=== PATIENT | male | born 1960 | race Hispanic/Latino ===

== ENCOUNTER 2017-09-19 22:53 | Inpatient (IN) | payer OTHER, SELFPAY ==
[2017-09-19] MEDS ORDERED: Lorazepam 2 MG/ML VIAL ONE ×2 (23:02→23:04)
[2017-09-19 23:13] LABS: #Basophils 0.1 thou/uL (0.0-0.2); #Neutrophils 15.7 thou/uL (1.40-6.50); %Basophils 0.3 % (0.0-1.0); %Eosinophils 0.2 % (0.0-10.0); %Lymphocytes 5.3 % (21.0-51.0); %Monocytes 10.5 % (0.0-10.0); %Neutrophils 83.7 % (42.0-75.0); Hemoglobin 14.9 g/dL (14.0-18.0); Mean Corpuscular HGB CONC 33.8 g/dL (32.0-36.0); Mean Corpuscular Hemoglobin 31.9 pg (27.0-31.0); Mean Corpuscular Volume 94.1 fl (80.0-94.0); Mean Platelet Volume 7.1 fL (7.4-10.4); Platelet Count 207 thou/uL (130-400); RBC Distribution Width 12.9 % (11.5-14.5); Red Blood Cell (RBC) Count 4.69 mill/uL (4.70-6.10); White Blood Cell (WBC) Count 18.8 thou/uL (4.8-10.8)
[2017-09-19 23:20] LABS: Bilirubin Negative (Negative); Blood, Urine Moderate (Negative); Clarity CLOUDY (Clear); Glucose, Urine (Dipstick) 100 mg/dL (Negative); Leukocyte Negative (Negative); Nitrite Negative (Negative); Protein, Urine (Dipstick) 100 mg/dL (Neg-Trace); Specific Gravity, Urine 1.007 (1.002-1.036)
[2017-09-19 23:22] LABS: Bacteria/HPF None Seen HPF (None Seen); Pathc Cast-AUWi Flag 2.18 (0-2.49); RBC/HPF 0-3 HPF (0-3)
[2017-09-19 23:28] LABS: ALT (SGPT) 87 U/L (8-55); AST (SGOT) 170 U/L (5-34); Acetaminophen Less than 6.0 mcg/mL (10.0-30.0); Albumin 4.1 g/dL (3.5-5.0); Alcohol Less than 10 mg/dL (Less than 10); Alkaline Phosphatase 128 U/L (40-150); Anion Gap 15 mmol/L (10-20); BUN (Urea Nitrogen) 10 mg/dL (8.4-25.7); CK (CPK) 616 U/L (30-200); Calc. Creatinine Clearance 0 mL/min (70-130); Calcium 9.3 mg/dL (7.8-10.44); Carbon Dioxide 25 mmol/L (22-29); Chloride 91 mmol/L (98-107); Estimated GFR-MDRD 52; Globulin 4.6 g/dL (2.4-3.5); Glucose 145 mg/dL (70-105); Potassium 3.2 mmol/L (3.5-5.1); Protein, Total 8.7 g/dL (6.0-8.3); Salicylate Less than 8.0 mg/dL (15.0-30.0); Sodium 128 mmol/L (136-145)
--- NOTE | 2017-09-19 23:28 | RAD ---
CHEST ONE VIEW: HISTORY: Unresponsive patient. COMPARISON: None. FINDINGS: Portable semiupright chest radiograph demonstrates a normal cardiac silhouette. The pulmonary vessel s and hilum are normal. The costophrenic angles are clear. No consolidation or mass. No pneumothor ax or osseous abnormality. Remote changes to the distal left clavicle. IMPRESSION: No acute cardiopulmonary process. POS: [facility]
[2017-09-19 23:31] LABS: CKMB 4.2 ng/mL (0-6.6); Troponin I 0.127 ng/mL (< 0.028)
[2017-09-19 23:36] LABS: Amphetamine Not Detected (NotDetected); Barbiturates Screen Not Detected (NotDetected); Benzodiazepine Screen Not Detected (NotDetected); Cocaine Metabolite Screen Not Detected (NotDetected); Medtox Control Line Valid? VALID (VALID); Medtox Reader # READER 1; Methadone Not Detected (NotDetected); Methamphetamine Not Detected (NotDetected); Opiate Screen Not Detected (NotDetected); Oxycodone Screen Not Detected (NotDetected); Phencyclidine (PCP) Not Detected (NotDetected); Renal Epithelial None Seen HPF (0-3); THC/Cannabinoid Screen Not Detected (NotDetected); Transitional Epithelial NONE SEEN HPF (0-3); Trichomonas/HPF None Seen HPF (None Seen); Tricyclic Screen Not Detected (NotDetected)
--- NOTE | 2017-09-19 23:56 | CT ---
CT CERVICAL SPINE NONCONTRAST: HISTORY: A 56-year-old male. Fall with altered mental status. FINDINGS: Motion artifact is present, limiting detail. There is no obvious craniocervical distraction, marlon radha fracture, or obvious acute malalignment. There is abnormal multifocal lucency involving the C3 and C4 vertebrae, most notable involving the left posterior elements. A lytic process is not exclude d. There is surrounding sclerosis seen. Incidental note of subarachnoid hemorrhage at the imaged po sterior fossa. Grade I spondylolisthesis is seen at C3-4. Incidental note of biapical emphysema. IMPRESSION: 1. No obvious acute fracture. 2. Abnormal multifocal lytic lucencies, as discussed above. There is surrounding sclerosis. The po ssibility of a marrow infiltrative/neoplastic process is not excluded. Findings are most notable at the C3 and C4 segments, centered about the left facet. An infectious process is an additional possib ility. Incidental note of a subarachnoid hemorrhage at the skull base. Reference separate head CT. POS: [facility]
--- NOTE | 2017-09-19 23:59 | CT ---
NONCONTRAST HEAD CT: HISTORY: Altered mental status. Fall. Unresponsive patient. COMPARISON: None. TECHNIQUE: A noncontrast head CT is performed from the skull base to the skull vertex. FINDINGS: There is marked dilatation of the ventricular system. There is marked intraventricular hemorrhage. There is evidence of subarachnoid hemorrhage involving both frontal lobe and parietal lobe sulci. Th ere is preservation of the calvarium. There is left maxillary sinus disease. Inadequate mastoid air cell aeration. IMPRESSION: Extensive intraventricular as well as subarachnoid hemorrhage. There is evidence of hydrocephalus se condary to intraventricular hemorrhage. The results of the study were discussed with Dr. Michelle on 09/19/2017 at 11:34 p.m. CODE CR POS: [facility]
[2017-09-20] MEDS ORDERED: niCARdipine 20MG In NaCl 20 MG/200 ML BAG ONE (00:09)
[2017-09-20] MEDS ORDERED: SODIUM CHLORIDE 0.9% IVPB SCH (00:15)
[2017-09-20] MEDS ORDERED: Lidocaine 1% w/Epinephrine 1:100K 20 ML VIAL ONE (00:15)
[2017-09-20] MEDS ORDERED: FOSPHENYTOIN SODIUM IVPB SCH (00:15)
[2017-09-20] MEDS ORDERED: Lorazepam 2 MG/ML VIAL ONE (00:18)
[2017-09-20 01:12] LABS: Actual Bicarbonate (HCO3a) 25.2 mEq/L (22-26); Base Excess (BEa) -1.2 mEq/L (0 (+/-) 2.5); CO2 Tension 48.5 mmHg (35.0-45.0); Hematocrit-ABG 46.7 % (42.0-52.0); Hemoglobin (Hb) 13.7 g/dL (14.0-18.0); O2 Tension (PaO2) 436.1 mmHg (80.0-100.0); pH, Arterial 7.33 (7.35-7.45)
[2017-09-20 01:13] LABS: ALV-art Gradient 216.275 (0-20); Analyzer IN Cardio ER; Calcium, Ionized 1.1 mmol/L (1.12-1.30); Puncture Site RRA
[2017-09-20] MEDS ORDERED: DOPamine 400 MG/D5W 250 ML 250 ML ONE (01:15)
[2017-09-20] MEDS ORDERED: Ondansetron HCl/PF 4 MG/2 ML Vial IVP PRN (01:39)
[2017-09-20] MEDS ORDERED: Sedation Protocol FS ONE ×3 (01:39→16:53)
[2017-09-20] MEDS ORDERED: Bisacodyl 10 MG SUPP PR PRN (01:39)
[2017-09-20] MEDS ORDERED: Morphine 2 MG/ML SYRINGE SLOW IVP PRN (01:54)
[2017-09-20] MEDS ORDERED: Lorazepam 2 MG/ML VIAL SLOW IVP PRN (01:54)
[2017-09-20] MEDS ORDERED: Fentanyl BOLUS 250 ML IVPB PRN (01:54)
[2017-09-20] MEDS ORDERED: Fentanyl CADD 250 ML IVPB SCH (01:54)
[2017-09-20] MEDS ORDERED: DISCONTINUE PREVIOUS NARCOTIC PAIN MEDICATIONS AND BENZODIAZEPINES FS SCH (01:54)
[2017-09-20] MEDS ORDERED: Morphine 4 MG/ML VIAL SLOW IVP PRN (02:00)
[2017-09-20] MEDS ORDERED: fentaNYL Citrate/PF 2,000 MCG in Sodium Chloride 0.9% 60 ML IV SCH (02:00)
[2017-09-20] MEDS ORDERED: CEFAZOLIN/Water 2 G/20 ML 2 GM in Pre-Filled Syringe 1 EACH SLOW IVP SCH (03:00)
[2017-09-20 03:05] LABS: Lactic Acid 2.2 mmol/L (0.5-2.2)
[2017-09-20 03:11] LABS: Anion Gap 11 mmol/L (10-20); BUN (Urea Nitrogen) 13 mg/dL (8.4-25.7); Calc. Creatinine Clearance 0 mL/min (70-130); Calcium 8.5 mg/dL (7.8-10.44); Carbon Dioxide 28 mmol/L (22-29); Chloride 90 mmol/L (98-107); Estimated GFR-MDRD 53; Glucose 164 mg/dL (70-105); Potassium 3.4 mmol/L (3.5-5.1); Sodium 126 mmol/L (136-145)
[2017-09-20 03:14] LABS: Hemoglobin 13.9 g/dL (14.0-18.0); Mean Corpuscular HGB CONC 33.8 g/dL (32.0-36.0); Mean Corpuscular Hemoglobin 31.9 pg (27.0-31.0); Mean Corpuscular Volume 94.4 fl (80.0-94.0); Platelet Count 179 thou/uL (130-400); RBC Distribution Width 12.9 % (11.5-14.5); Red Blood Cell (RBC) Count 4.38 mill/uL (4.70-6.10); White Blood Cell (WBC) Count 23.7 thou/uL (4.8-10.8)
[2017-09-20] MEDS: Sodium Chloride 0.9% 1,000 ML IV SCH ×3 (03:24→17:30)
[2017-09-20 03:38] LABS: Band 11 % (5-11); Eosinophils 1 % (0-10); Lymphocytes 7 % (21-51); MDiff Complete? YES; Macrocytosis SLIGHT = 6-15 cells (100X) (0-5/hpf); Monocytes 10 % (0-10); Neutrophil 71 % (42-75); PLT Morphology Comment Appears Adequate
[2017-09-20] MEDS: niMODipine 30 MG CAP PO SCH ×5 (04:48→20:36)
--- NOTE | 2017-09-20 07:09 | CT ---
CTA [facility] [place]: CLINICAL HISTORY: Acute intracranial hemorrhage. TECHNIQUE: Three-dimensional volume rendering performed. FINDINGS: The imaged distal vertebrae and basilar arteries are patent. There is no significant stenosis or occ lusion involving either PHYSICIAN VICE PRESIDENT. Bilateral MCA revealed no significant stenosis or occlusion. Anterior cerebral arteries are patent. There is focal prominence/irregularity of the right lateral aspect of the anterior communicating artery. This could relate to aneurysm. Note is made that there is limite d evaluation for aneurysm due to the degree of intracranial hemorrhage. Comparing to prior CT, there has been placement of a right-sided frontal approach ventriculostomy, wi th the tip terminating at the frontal horn, right lateral ventricle. Diffuse intracranial hemorrhage is again seen, predominantly within the ventricular system. IMPRESSION: Slight irregularity involving the right lateral aspect of the region of the anterior communicating ar lennox. This could relate to underlying aneurysm. Limitation is present due to the degree of intracra nial acute hemorrhage. Recommend continued imaging followup, upon resolution of acute symptoms, for further evaluation. POS: [facility]
[2017-09-20] MEDS ORDERED: CCU Electrolyte Replacement 1 EACH FS ONE (07:11)
[2017-09-20] MEDS ORDERED: Potassium Phosphate 15 MMOL in Sodium Chloride 0.9% 250 ML 250 ML IV PRN (07:14)
[2017-09-20] MEDS ORDERED: Potassium Chloride 20 MEQ TAB PO PRN (07:14)
[2017-09-20] MEDS ORDERED: Magnesium Oxide 400 MG TAB PO PRN ×2 (07:14)
[2017-09-20] MEDS ORDERED: Potassium Chloride 40 MEQ in Sodium Chloride 0.9% 250 ML 250 ML IVPB PRN (07:14)
[2017-09-20] MEDS ORDERED: Potassium Phosphate 12 MMOL in Sodium Chloride 0.9% 250 ML 250 ML IV PRN (07:14)
[2017-09-20] MEDS ORDERED: Potassium Chloride 40 MEQ in Premix Bag 1 BAG IVPB PRN (07:14)
[2017-09-20] MEDS ORDERED: Potassium Phosphate 9 MMOL in Sodium Chloride 0.9% 100 ML IVPB PRN (07:14)
[2017-09-20] MEDS ORDERED: Magnesium 2 GM/NS 0.9% 100 ML 2 GM in Premix Bag 1 BAG IVPB PRN (07:14)
[2017-09-20 08:01] LABS: Hematocrit-ABG 48.7 % (42.0-52.0); O2 Tension (PaO2) 68.6 mmHg (80.0-100.0); pH, Arterial 7.44 (7.35-7.45)
[2017-09-20 08:02] LABS: Puncture Site RR
[2017-09-20] MEDS ORDERED: ISOVUE-370 76%-LOCM 1 ML ONE (08:02)
--- NOTE | 2017-09-20 08:06 | RAD ---
CHEST 1 VIEW: HISTORY: Intubated. COMPARISON: 09/19/17. FINDINGS: Cardiac silhouette is magnified by projection. Lungs remain hyperinflated. Mediastinum is midline. The tip of the endotracheal catheter lies just above the level of the jarrett. Nasogastric tube desc ends to the stomach. No lobar consolidation. Old right rib fractures are apparent. IMPRESSION: 1. Endotracheal catheter tip is just above the level of the jarrett. Consider slight withdrawal. 2. Nasogastric tube descends to the stomach. 3. Other findings are stable. POS: [facility]
--- NOTE | 2017-09-20 08:21 | PRG ---
DATE OF SERVICE: 09/20/2017 Mr. Martinez was admitted last night for diffuse subarachnoid hemorrhage and diffuse intraventricular he morrhage. EVD was placed last night and has drained around 19 mL, it continues to put off around 3-6 mL an hour. His urinary output initially upon admission to the CCU was around 4-5 per hour, but has now leveled off. He is still getting normal saline at 125 an hour, Ancef 2 grams was started this m orning after placement of the drain. He will be receiving every 8 hours while the drain is in place. At bedside, unfortunately, although not unexpectedly his neurologic examination is still rather poo r. He spontaneously moves and is experiencing small tics which could represent minor seizure activit y. He is loaded on Dilantin and we will continue this as well. He at times looks like he attempts t o open his eyes with stimulation, but does not open them at any given time. His pupils are still equ ally round and reactive to light. Pressures have sagged some again. He was started on some IV dopam ine p.r.n. to keep his pressures above 100 systolic, but now that was turned off and he has dropped b ack down into the 80s and 90s so we will reinitiate that. I discussed with the nurse that target sys tolic pressures need to be between [address] was performed last night, does not reveal any obv ious aneurysmal or arteriovenous malformation other than a possible irregularity at the anterior comm unicating artery, though incomplete evaluation due to the significant amount of hemorrhage present di ffusely throughout his brain. Our plan for now will be to continue to treat him as aneurysmal subarachnoid hemorrhage with intraven tricular hemorrhage, drain setting is at 5 cm of water. Will have q.1h. neuro checks. I will discu ss this with Dr. Moser.
--- NOTE | 2017-09-20 09:20 | HP ---
HISTORY OF PRESENT ILLNESS: Mr. Martinez is a 56-year-old man who presented to the emergency department at [facility] by EMS after being found down by his family in the bathroom, was found unresp onsive with seizure activity present. This is in the setting of a CT scan of the brain performed in the department showing complete hyperdensity of the full ventricular system representing massive intr aventricular hemorrhage, there is also scattered subarachnoid hemorrhage throughout the full distribu tion of the bilateral hemispheres. This is very likely represents some type of vascular event, likel y in the form of an aneurysm or perhaps an AVM, we will obtain a CTA to determine the etiology. Deepika kimbrough does not disclose any significant medical factors. He only has COPD with history, does not take a ny blood thinners. He was hypertensive in the emergency department, the systolic reaching 196 at its peak. He was in rapid sequence intubated at bedside. PAST MEDICAL HISTORY: Significant for COPD. CURRENT MEDICATIONS: Unassessed. ALLERGIES: No known drug allergies. PAST SURGICAL HISTORY: Unassessed. PHYSICAL EXAMINATION: The patient is comatose at bedside with minimal response to deep painful stimuli of mostly withdrawal s. He does not open his eyes to any stimulus. Pupils are equally round and reactive to light, alth ough his gaze is somewhat disconjugate. When spoken to and with deep stimuli, he does groan and make an unintelligible noises. I am afraid his GCS of 6 perhaps of 5 at this point. His head is atrauma tic, normocephalic. ASSESSMENT: Acute subarachnoid hemorrhage with mass and intraventricular hemorrhage. PLAN: Because of intraventricular hemorrhage and because it does look like he is developing engorgem ent of the entire ventricular system, most likely represents acute obstructive hydrocephalus secondar y to of his ventricles. He very likely has increased intracranial pressure and will need urgen t placement of external ventricular drainage, which I performed at the bedside here at the emergency department. After this, we will need to obtain a CTA, admit him to the ICU and a consultation to the Pulmonary or Critical Care Team. Put on a every one hour neuro checks and one hour normal saline at 125 also initiate progressive hypertensive therapy as soon as we get a CTA performed. t hat there is not a vascular source of this hemorrhage. We will need to maintain a systolic pressure below 140. Start him on a Cardene drip for this purpose specifically. Head of bed will be elevated to 30 degrees. As he did have seizure activity, we will also load him Dilantin at 15 mg/kg and at 30 0 mg b.i.d. lately. I had a long discussion with all family members present at the bedside and then in the crisis room post-procedure where I informed them this is likely devastating hemorrhage, but be cause he had seizure activity, it could very well be postictal and because of the hydrocephalus causi ng increased intracranial pressure, will know a lot more about his condition in the next 24-48 hours. Plan will be to pursue a full depth of neurosurgical care which I believe will and encourage d him to ask any questions or express concerns at any time. Harley Singletary PA-C, dictating for Dr. Moser.
[2017-09-20 09:22] LABS: Base Excess-Venous -2.1 mmol/L (0 (+/- 2.5)); Bicarbonate (HCO3v) 25.1 mmol/L (1.0-85.0); CO2 Tension (PvCO2) 51.3 mmHg (41.0-51.0); Hemoglobin - Calc 15.4 g/dL (12.0-18.0); O2 Tension (PvO2) 130.8 mmHg (35.0-45.0); Potassium 2.9 mmol/L (3.4-4.7); T. Carbon Dioxide 26.7 mmol/L (1.0-85.0); pH (Venous) 7.298 (7.35-7.45); vO2 Saturation-calc 98.6 % (94-98)
[2017-09-20] MEDS ORDERED: STERILE WATER SLOW IVP SCH (10:00)
[2017-09-20] MEDS ORDERED: CEFAZOLIN SLOW IVP SCH (10:00)
[2017-09-20] MEDS: Pantoprazole 40 MG VIAL IVP SCH (10:46)
--- NOTE | 2017-09-20 10:57 | CT ---
NONCONTRAST HEAD CT: HISTORY: Intraventricular and subarachnoid hemorrhage. COMPARISON: 09/19/2017 FINDINGS: Redemonstration of extensive intraventricular and subarachnoid hemorrhage. The ventricular system co ntinues to be enlarged. Interval placement of a right-sided ventriculoperitoneal shunt catheter via the right frontal approach. the distal tip of the catheter is in the frontal horn of the right later al ventricle. Cortical montero white matter differentiation appears to be preserved. Chronic small vessel ischemic ch anges of the white matter are identified. The calvarium is intact. Adequate aeration of the sinuses and mastoid air cells. IMPRESSION: 1. Interval placement of a right-sided ventriculoperitoneal shunt catheter. Persistent dilatation o f the ventricular system. 2. Evidence of intraventricular and subarachnoid hemorrhage. The degree of subarachnoid hemorrhage has progressed when compared to the prior exam. POS: [facility]
[2017-09-20] MEDS: CEFAZOLIN/Water 2 GM/20 ML SYRINGE SLOW IVP SCH ×2 (11:07→17:30)
--- NOTE | 2017-09-20 12:35 | CON ---
DATE OF CONSULTATION: 09/20/2017 This is 45 minutes critical care time. REASON FOR CONSULTATION: Ventilator in CCU management. HISTORY OF PRESENT ILLNESS: This is a 56-year-old male who came to the ER last night with altered me ntal status and has been found to have an intracranial hemorrhage. Apparently there is a diffuse sub arachnoid hemorrhage with intraventricular hemorrhage. He is currently intubated on mechanical venti lation until he is intubated secondary to airway protection issues. PAST MEDICAL HISTORY: COPD is noted in the ER notes, this is not confirmed. PAST SURGICAL HISTORY: None. PSYCHIATRIC HISTORY: Unknown. SOCIAL HISTORY: Apparently drinks every day, smokes cigarettes daily. Drug use unknown. ALLERGIES: None. MEDICATIONS PRIOR TO ADMISSION: None. REVIEW OF SYSTEMS: Unobtainable. PHYSICAL EXAMINATION: VITAL SIGNS: Temperature is 99.1, pulse 108, blood pressure 102/62, O2 sat 100%. GENERAL: Currentl y on dopamine drip at 10 mcg per kilogram per minute through a midline in the right arm. HEENT: Pupils are 4 mm reactive, 3 mm bilaterally. Sclerae icteric. Oropharynx clear. NECK: No JVD or bruits. LUNGS: Clear to auscultation without wheezing or rhonchi. CARDIAC: S1, S2 regular, without murmur. ABDOMEN: Soft, nontender, nondistended. EXTREMITIES: No clubbing, cyanosis, or edema. NEUROLOGIC: He will withdraw to pain in both feet and his right arm will not withdraw the left arm. LABORATORY DATA: White blood cell count 23.7, hematocrit 41.3, platelet count 179, pH 7.44, pCO2 of 38, pO2 of 68 on SIMV rate 15, tidal volume 400, PEEP 5, pressure support 10, FiO2 40%. Sodium 126, potassium 3.4, chloride 90, CO2 of 28, BUN 13, creatinine 1.3, glucose 164. Urine drug screen was ne gative. Alcohol level was negative. Chest x-ray demonstrates hyperinflation. Endotracheal tube is about 4 cm above the jarrett. His NG tube going into the stomach. No acute infiltrates are noted. C T of the head demonstrated extensive intraventricular as well as subarachnoid hemorrhage. There was evidence of hydrocephalus secondary to the hemorrhage. ASSESSMENT: 1. Subarachnoid hemorrhage with intraventricular extension. 2. Acute respiratory failure, requiring mechanical ventilation. 3. Hyponatremia, which is likely secondary to alcohol. PLAN: The patient is currently on normal saline which should address the hyponatremia. Dopamine is being used for treatment of potential vasospasm. He has been started on cefazolin for prophylaxis as he has an intraventricular drain in place. I have reviewed his ventilator settings, it seemed to be stable. We will monitor ABG and laboratory parameters daily. His prognosis is dismal.
[2017-09-20] MEDS: DOPamine 400 MG/D5W 250 ML 250 ML IVPB SCH (15:46)
--- NOTE | 2017-09-20 15:58 | PRG ---
DATE OF SERVICE: 09/20/2017 SUBJECTIVE: Mr. Martinez was admitted late yesterday evening with intracerebral hemorrhage with a vascu lar component of the blood within the ventricular space and to a lesser extent within the subarachnoi d space. He was noted to have seizure activity at the time of presentation. He is also obtunded req uiring intubation at the time of transport. Upon arrival, he had a CT examination performed, which r evealed the presence of ventricular blood as well as subarachnoid blood with associated hydrocephalus . He had a CT angiogram performed, which was negative for vascular malformation or aneurysm. He had a ventriculostomy device placement in the ER. This has been intermittently working in part due to b lood clot. Mr. Martinez has been on no sedation since his presentation to the ICU. He has a very poor neurologic e xam. Both pupils are reactive; however, he does not respond to deep stimulation. He does have occas ional spontaneous movement of the limbs. This will prompt further evaluation with respect to clinica l or subclinical seizures. I have tried to reach out to family members and have not been successful on reaching them; we will continue to do so. I believe his prognosis at this point is quite guarded and likely poor. We will continue to treat him with medical management and external ventricular drai nage. He will likely need a diagnostic cerebral angiography as well to rule out occult or small vasc ular malformation, which led to his hemorrhage.
[2017-09-20] MEDS: Fosphenytoin Sodium 100 MG in Sodium Chloride 0.9% 100 ML IVPB SCH (17:27)
[2017-09-20] MEDS: Propofol 1,000 MG/100 ML VIAL IV PRN (17:30)
--- NOTE | 2017-09-20 19:36 | CON ---
DATE OF CONSULTATION: 09/20/2017 IMPRESSION: 1. Massive subarachnoid hemorrhage resulting in left hemiparesis. 2. EEG shows some focal sharp activity in the right hemisphere, but then he does not demonstrate any clinical seizure activity consistent with events in this region. PLAN: 1. Continue Dilantin 300 mg per day. 2. Supportive measures. HISTORY OF PRESENT ILLNESS: Mr. Martinez is a 56-year-old man with no known past history, who presented with altered mental status. His CT of the brain revealed evidence of a massive intraventricular and subarachnoid hemorrhage. His CTA showed a questionable ACom aneurysm. He has been intubated in the ICU. He has been having some irregular movements in his right arm. He was loaded with Dilantin las t night. The nurses report some occasional twitching, which I do not have any specifics on at this p oint. We hooked him up to EEG and monitored his movements as well as his EEG activity. There does n ot appear to be any subclinical seizure activity present. He does have a short focus as mentioned in the right hemisphere. PAST MEDICAL HISTORY: Otherwise, negative. SOCIAL HISTORY: Unknown. ALLERGIES: None reported. REVIEW OF SYSTEMS: Not obtainable. PHYSICAL EXAMINATION: VITAL SIGNS: Blood pressure 122/73, pulse 104, respirations 27, saturation 99%. HEENT: Pupils are equal. Conjunctivae clear. Eyes move in a conjugate fashion. He does not open h is eyes spontaneously. NEUROLOGIC: He is orally intubated. When stimulated, he tends to make some irregular movements with his right hand more than his leg. The left side does not seem to respond at all. He had upgoing to e on the left. Sensation seemed to be intact bilaterally. He would not follow any commands. EKG: Sinus tachycardia. LABORATORY STUDIES: Reviewed and were notable for mild hyponatremia and elevated liver functions. H is tox screen was negative. SUMMARY: A middle-aged man with a massive intracerebral hemorrhage and would continue the Dilantin, on a maintenance schedule 300 mg per day and follow him clinically.
[2017-09-21] MEDS: niMODipine 30 MG CAP PO SCH ×6 (00:17→20:06)
[2017-09-21] MEDS: Fosphenytoin Sodium 100 MG in Sodium Chloride 0.9% 100 ML IVPB SCH ×3 (00:20→17:17)
[2017-09-21] MEDS: CEFAZOLIN/Water 2 GM/20 ML SYRINGE SLOW IVP SCH ×3 (02:18→19:48)
[2017-09-21] MEDS: Sodium Chloride 0.9% 1,000 ML IV SCH ×3 (04:22→20:08)
[2017-09-21] MEDS: Propofol 1,000 MG/100 ML VIAL IV PRN (04:23)
[2017-09-21] MEDS: DOPamine 400 MG/D5W 250 ML 250 ML IVPB SCH (04:23)
[2017-09-21 06:33] LABS: Band 20 % (5-11); Hemoglobin 13.5 g/dL (14.0-18.0); Lymphocytes 17 % (21-51); MDiff Complete? YES; Mean Corpuscular HGB CONC 32.4 g/dL (32.0-36.0); Mean Corpuscular Hemoglobin 31.4 pg (27.0-31.0); Mean Corpuscular Volume 96.9 fl (80.0-94.0); Mean Platelet Volume 8.3 fL (7.4-10.4); Monocytes 9 % (0-10); Neutrophil 54 % (42-75); PLT Morphology Comment PLT clumps seen-ADEQ; RBC Distribution Width 13.2 % (11.5-14.5); Red Blood Cell (RBC) Count 4.32 mill/uL (4.70-6.10); White Blood Cell (WBC) Count 29.4 thou/uL (4.8-10.8)
[2017-09-21 06:37] LABS: Anion Gap 17 mmol/L (10-20); BUN (Urea Nitrogen) 17 mg/dL (8.4-25.7); Calc. Creatinine Clearance 86 mL/min (70-130); Calcium 8.5 mg/dL (7.8-10.44); Carbon Dioxide 17 mmol/L (22-29); Chloride 100 mmol/L (98-107); Estimated GFR-MDRD 89; Glucose 122 mg/dL (70-105); Potassium 4.2 mmol/L (3.5-5.1); Sodium 130 mmol/L (136-145)
[2017-09-21 07:41] LABS: ALV-art Gradient 180.675 (0-20); Actual Bicarbonate (HCO3a) 22.2 mEq/L (22-26); Base Excess (BEa) -0.3 mEq/L (0 (+/-) 2.5); CO2 Tension 30.1 mmHg (35.0-45.0); Hematocrit-ABG 45.1 % (42.0-52.0); Hemoglobin (Hb) 13.6 g/dL (14.0-18.0); O2 Tension (PaO2) 66.9 mmHg (80.0-100.0); Puncture Site LRA; pH, Arterial 7.49 (7.35-7.45)
--- NOTE | 2017-09-21 07:51 | RAD ---
AP VIEW CHEST: Date: 09/21/17 HISTORY: Ventilator dependent patient. FINDINGS: Comparison made to previous exam from 09/20/17. AP view of chest demonstrates EKG leads seen over the chest. Pulmonary vascular congestion is seen. S ome prominent interstitial markings are seen in the lung bases. No evidence of pneumonia or pneumotho rax seen. A non-healed distal left clavicular fracture is seen. IMPRESSION: Pulmonary vascular congestion and prominent interstitial markings. Nasogastric and endotracheal tubes are in good position. POS: [facility]
--- NOTE | 2017-09-21 08:28 | OP ---
DATE OF PROCEDURE: 09/20/2017 PREPROCEDURE DIAGNOSES: Intraventricular hemorrhage, altered mental status, subarachnoid hemorrhage. POST-PROCEDURE DIAGNOSES: Intraventricular hemorrhage, altered mental status, subarachnoid hemorrhag e. DESCRIPTION OF PROCEDURE: Right external ventricular drain placement with a bur hole. PROCEDURE IN DETAIL: Gretel's point was localized in the right frontal scalp. This was marked. We prepped with ChloraPrep and infiltrated with 1% lidocaine with epinephrine with a total of 1 mL to th e subcutaneous scalp tissues. At this point, a 15 blade knife was used to incise the scalp down to t he periosteum making about a roughly 1 cm incision. A cranial twist drill was used to create a bur h ole at Gretel's point in the frontal bone. The dural wound was cleared using blunt dissection and th en an intraventricular catheter was placed at a depth of 6 cm with slow egress of sanguineous fluid f rom the catheter. This was hooked up to the Tovar drain. The incision was closed using a Ethilon s uture. The drain was adhered to the scalp using 2-0 Silk suture. The drain setting was set to 5 and initially 10 cm of water, but the drainage was deemed slow enough to where it was moved to 5 cm of w ater and better drainage was obtained. The patient tolerated the procedure well. We will initiate h im on IV antibiotics in the form of Ancef 2 grams q.8h. I met with the family post-procedure.
--- NOTE | 2017-09-21 08:35 | PRG ---
DATE OF SERVICE: 09/21/2017 Thirty minutes critical care time. The patient remains intubated on mechanical ventilation. He does move around some, open his eyes acc ording to the family. He is not following commands. PHYSICAL EXAMINATION: VITAL SIGNS: Temperature is 98.7, pulse 89, blood pressure 105/59, O2 saturation 100%, 24-hour inta ke 3166, output 2009. HEENT: Unremarkable. NECK: No JVD. CHEST: Clear without wheezing or rhonchi. CARDIAC: S1 and S2 regular. ABDOMEN: Soft. EXTREMITIES: No edema. Chest x-ray shows no mass, effusion or infiltrate. LABORATORY DATA: White blood cell count 29.4, hemoglobin 13, hematocrit 41.9, platelet count could n ot be performed because of clumping. PH 7.49, pCO2 of 30, pO2 66, tidal volume 400, PEEP 5, pressure support 10, FiO2 40%. Sodium 130, potassium 4.2, chloride 100, CO2 17, BUN 17, creatinine 0.8, gluc ose 122. ASSESSMENT: 1. Subarachnoid hemorrhage. 2. Acute respiratory failure requiring mechanical ventilation. 3. Hyponatremia, which is better. PLAN: The patient's prognosis is guarded. I spoke with his sister at the bedside. I do not think michael weathers can entertain taking out the endotracheal tube until his mental status has improved, if that is to happen. We will go ahead and start tube feeds today for nutritional support. His white count is baljit vated even on cefazolin. I think it would be prudent to redraw cultures, he grew coagulase negative Staph out of one of two bottles at the time of admission, but that is likely a contaminant and should be covered by cefazolin any way, it could be that the white count is simply due to the intraventric ular hemorrhage.
[2017-09-21] MEDS: Pantoprazole 40 MG VIAL IVP SCH (09:21)
--- NOTE | 2017-09-21 10:51 | PRG ---
DATE OF SERVICE: 09/21/2017 Mr. Martinez is now 1 day status post admission into the ICU for a large intraventricular hemorrhage. Dale weathers had a ventriculostomy placed on the night of admission. His neurologic exam has improved increment ally since that time. He is currently on sedation and even on sedation he makes movement spontaneous ly and with stimulation opens his eyes and has a tendency to grab toward the tube. I interrogated th e ventriculostomy device today and it was not flowing well. I flushed it and it is still not flowing as well as I would like. We will continue to monitor this and if need be, replace it. He had a neg ative CT angiogram. He may at some point need conventional angiogram. The family has been updated.
--- NOTE | 2017-09-21 15:30 | EEG ---
Referring Physician: Kenan CORCORAN EEG # [id number] TEST TYPE: ROUTINE PORTABLE REPORT: AN EEG USING THE INTERNATIONAL TEN-TWENTY SYSTEM OF ELECTRODE PLACEMENT WAS PERFORMED. The background shows a bit of asymmetry with higher amplitude slowing seen over the right hemisphere as compared to the left. Generally the frequency range is between 2 hertz delta up to some low amplitude 9 hertz alpha. There is fairly frequent phase reversing sharp transients in the right hemisphere. No sustained epileptiform activity was seen. No definite sleep patterns were noted. IMPRESSION: THIS STUDY IS ABNORMAL FOR SOME ASYMMETRIC SLOWING WITH BILATERAL CEREBRAL DYSFUNCTION WELL SHARP TRANSIENTS NOTED IN THE RIGHT HEMISPHERE SUGGESTING A SEIZURE FOCUS. NO SUBCLINICAL SEIZURE ACTIVITY WAS NOTED OTHERWISE. Otm Consultant: JACKIE Karate Instructor: EEG.KYLEE PRECIADO
[2017-09-22] MEDS: Fosphenytoin Sodium 100 MG in Sodium Chloride 0.9% 100 ML IVPB SCH ×3 (00:43→17:20)
[2017-09-22] MEDS: niMODipine 30 MG CAP PO SCH ×6 (00:43→20:33)
[2017-09-22] MEDS: CEFAZOLIN/Water 2 GM/20 ML SYRINGE SLOW IVP SCH ×3 (02:00→18:18)
[2017-09-22] MEDS ORDERED: Fentanyl 100 MCG/2 ML VIAL ONE ×3 (04:13→06:25)
[2017-09-22] MEDS: Sodium Chloride 0.9% 1,000 ML IV SCH ×3 (05:28→17:20)
[2017-09-22] MEDS ORDERED: Lidocaine 0.5%/Epinephrine 1:200,000 50 ml Vial ONE (05:43)
[2017-09-22] MEDS ORDERED: Sodium Chloride 0.9% 10 ML ONE (05:43)
[2017-09-22] MEDS ORDERED: Thrombin 5000 UNITS/5 ML VIAL ONE ×2 (05:43→07:05)
[2017-09-22] MEDS ORDERED: Bacitracin Zinc Ointment 30 gm TUBE ONE (05:46)
[2017-09-22] MEDS ORDERED: Midazolam HCl 2 mg/2 ml Vial ONE (05:47)
--- NOTE | 2017-09-22 06:41 | PRG ---
DATE OF SERVICE: 09/22/2017 Mr. Martinez is a 56-year-old man who presented 3 days ago with concern of aneurysmal subarachnoid hemor rhage. CT angiogram was negative. There was report of seizure at the scene and a poor neurological exam. He had thick casting of the ventricular system with obstructive hydrocephalus. A right fronta l EVD was placed in good position and was functioning. The patient's exam improved to intermittently follow commands and localize. Per the nursing team in the middle of the night his right frontal EVD began to obstruct and was not functioning. We performed troubleshooting maneuvers. These were ulti mately unsuccessful. A head CT was repeated and demonstrated persistence of thick ventricular clot w ith some opening of CSF in the left frontal horn. An EVD was placed from the left frontal position a nd worked intermittently and then it clotted off. As such, given the patient's age and the improveme nt following placement of ventriculostomy, I have recommended that we take him to the operating room for right frontal craniotomy for transcortical approach to try and evacuate as much of the ventricula r clot as we can and restore some semblance of normal CSF pathways. I will likely replace his right frontal EVD and leave his left one in place.
[2017-09-22] MEDS ORDERED: Thrombin 20 THOU.UNITS/20 ML VIAL ONE (07:04)
[2017-09-22] MEDS ORDERED: Rocuronium Bromide 50 MG/5 ML VIAL ONE (07:21)
--- NOTE | 2017-09-22 07:54 | RAD ---
AP VIEW CHEST: HISTORY: Ventilator-dependent patient. FINDINGS: AP view chest was obtained on 09/22/17. Comparison is made to previous exam from 09/21/17. AP view chest demonstrates EKG leads seen over the chest. Nasogastric and endotracheal tubes are in good position. There does appear to be some diffuse increased interstitial markings concerning for interstitial justina a or inflammatory process present. Some pulmonary vascular congestion is seen. No evidence of pneum othorax seen. IMPRESSION: 1. Prominent interstitial markings as well as pulmonary vascular congestion. 2. Endotracheal and nasogastric tubes are in good position. POS: [facility]
[2017-09-22] MEDS ORDERED: Fentanyl 100 MCG/2 ML VIAL SLOW IVP SCH ×2 (08:00)
[2017-09-22 08:02] LABS: Anion Gap 9 mmol/L (10-20); BUN (Urea Nitrogen) 19 mg/dL (8.4-25.7); Calc. Creatinine Clearance 97 mL/min (70-130); Calcium 8.7 mg/dL (7.8-10.44); Carbon Dioxide 25 mmol/L (22-29); Chloride 104 mmol/L (98-107); Estimated GFR-MDRD Greater than 90; Glucose 114 mg/dL (70-105); Potassium 3.3 mmol/L (3.5-5.1); Sodium 135 mmol/L (136-145)
[2017-09-22 08:26] LABS: Hemoglobin 12.8 g/dL (14.0-18.0); Mean Corpuscular HGB CONC 32.2 g/dL (32.0-36.0); Mean Corpuscular Hemoglobin 31.9 pg (27.0-31.0); Mean Corpuscular Volume 99.1 fl (80.0-94.0); Mean Platelet Volume 7.7 fL (7.4-10.4); Platelet Count 175 thou/uL (130-400); RBC Distribution Width 13.2 % (11.5-14.5); Red Blood Cell (RBC) Count 4.02 mill/uL (4.70-6.10); White Blood Cell (WBC) Count 19.5 thou/uL (4.8-10.8)
--- NOTE | 2017-09-22 08:42 | CT ---
PRELIMINARY REPORT/[facility]/EMERGENTY AFTER-HOURS PROCEDURE CT Head Without Intravenous Contrast CLINICAL HISTORY: 56 years old, male; Condition or disease; Other: F/u hemorrhage; Prior surgery; Patient HX: F/u hemor rhagic stroke TECHNIQUE: Axial computed tomography images of the head/brain without intravenous contrast. COMPARISON: CTA Angio Head W WO Con 2017-09-20 02:13 FINDINGS: Brain: Moderate subarachnoid hemorrhage throughout the cerebral sulci bilaterally. Ventricles: Moderate amount of intraventricular hemorrhage. Ventricular size is decreased from compar kerri study. Moderate amount of hemorrhage within the ventricular system. Bones/joints: Normal. No acute fracture. Soft tissues: Normal. Sinuses: Left maxillary sinus disease. Mastoid air cells: Normal as visualized. No mastoid effusion. Tubes, lines and devices: Right frontal approach ventriculostomy catheter tip in the anterior horn ri ght lateral ventricle. IMPRESSION: 1. Moderate subarachnoid hemorrhage throughout the cerebral sulci bilaterally, similar to comparison study. 2. Moderate amount of intraventricular hemorrhage, similar to comparison study. 3. Ventricular size is decreased from comparison study. Thank you for allowing us to participate in the care of your patient. Dictated and Authenticated by: Srinivas Guevara MD 09/22/2017 4:11 AM Central Time ([place] & [place]) FINAL REPORT CT HEAD WITHOUT CONTRAST: Date: 09/22/17 HISTORY: 56 years old, male; Condition or disease; Other: F/u hemorrhage; Prior surgery; Patient HX: F/u hemor rhagic stroke. TECHNIQUE: Multiple axial tomograms obtained through the head without IV enhancement. COMPARISON: Comparison made with head CT of 09/20/17. FINDINGS: Ventriculostomy catheter remains in place. There has been slight decrease in the size of the ventricl es. Diffuse intraventricular hemorrhage is again noted. Diffuse subarachnoid hemorrhage is again note d in both cerebral hemispheres. The subarachnoid blood may be slightly less prominent on today's exam . No mass effect or midline shift. IMPRESSION: Ventricles are slightly smaller today. Diffuse intraventricular and subarachnoid blood again noted. A gree with preliminary report. POS: [facility]
[2017-09-22] MEDS ORDERED: Labetalol HCl 100 MG/20 ML VIAL ONE (08:46)
[2017-09-22] MEDS: niCARdipine HCl 25 MG in Sodium Chloride 0.9% 250 ML 240 ML IVPB SCH (09:00)
[2017-09-22] MEDS ORDERED: Propofol BOLUS 1,000 MG/100 ML VIAL IV PRN (09:02)
[2017-09-22] MEDS ORDERED: Fentanyl BOLUS 250 ML IVPB PRN (09:02)
[2017-09-22] MEDS ORDERED: Morphine 2 MG/ML SYRINGE SLOW IVP PRN (09:02)
[2017-09-22 09:10] LABS: Band 14 % (5-11); Lymphocytes 7 % (21-51); MDiff Complete? YES; Monocytes 11 % (0-10); Neutrophil 68 % (42-75); RBC Morphology Normal
[2017-09-22] MEDS: Pantoprazole 40 MG VIAL IVP SCH (09:24)
[2017-09-22] MEDS ORDERED: fentaNYL Citrate/PF 2,000 MCG in Sodium Chloride 0.9% 60 ML IV SCH (09:34)
[2017-09-22] MEDS ORDERED: Labetalol HCl 100 MG/20 ML VIAL SLOW IVP SCH (10:00)
[2017-09-22] MEDS: Propofol 1,000 MG/100 ML VIAL IV PRN (11:55)
--- NOTE | 2017-09-22 12:50 | CT ---
CT OF THE BRAIN WITHOUT CONTRAST: COMPARISON: 09/22/17. History Craniotomy for evacuation of intracranial hemorrhage. TECHNIQUE: Multiple contiguous axial images were obtained in a CT of the brain without contrast. FINDINGS: There is pneumocephalus seen anteriorly from recent surgery. A craniotomy has been performed in the right frontal region. There are bilateral ventriculostomy catheters. The right ventriculostomy cath eter has its tip in the right lateral ventricle. The left ventriculostomy catheter has its tip in th e region of the basal ganglia and is not definitely seen within the left lateral ventricle. There is a moderate amount of blood in the lateral ventricles, but this has decreased compared to the prior examination. There is a large amount of subarachnoid hemorrhage throughout the brain. Blood is again seen in the 4th ventricle and there is crowding of the basilar cisterns. No significant mid line shift is present. IMPRESSION: 1. Recent postsurgical changes as above. Please note that the left ventriculostomy catheter may not be in the left lateral ventricle. 2. Extensive subarachnoid hemorrhage. 3. Moderate intraventricular hemorrhage which has improved. POS: [facility]
--- NOTE | 2017-09-22 13:00 | OP ---
SURGEON: Luis Wilhelm M.D. MANAGER HEMATOLOGY: Amadou Collins PA-C and Nakia Triplett PA-C. OPERATIVE PROCEDURE: A modifier 57 should be added to this case as the decision to operate was made on the day I saw the patient. PREPROCEDURE DIAGNOSES: Need to restore CSF flow with intraventricular hemorrhage and obstructive hy drocephalus with failure of external ventriculostomy. POSTPROCEDURE DIAGNOSES: Need to restore CSF flow with intraventricular hemorrhage and obstructive h ydrocephalus with failure of external ventriculostomy. PROCEDURES PERFORMED: 1. Right frontal craniotomy with transcortical approach for ventricular clot removal. 2. Placement of external ventricular drain. 3. Use of operative microscope for microdissection. DESCRIPTION OF PROCEDURE: After the emergent nature conveyed to the family, the patient was brought to the OR. Proper patient pause and identification was carried out. He was placed under excellent g eneral endotracheal anesthesia and positioned supine on the OR table. He had bilateral ventriculosto mies already in place. The right frontal ventriculostomy wound was identified and this area was ster ilely cleansed, prepared and draped and linear geoffrey continued where the ventriculostomy entered. Thi s region was sterilely cleansed, prepared, and draped. Proper patient pause and identification was c arried out. The wound was then opened with a combination of sharp, monopolar and blunt dissection. A circular craniotomy performed around the ventriculostomy. At that time, I removed the circular overhead crane technician niotomy and opened up the dura. There was no flow from the external ventricular drain on the right s johanna, nor was there any flow in the left side. I then proceeded following opening up the dura with th e transcortical approach and entered the ventricle with the clot was found. This was removed. I the n brought the microscope in for microdissection. I fenestrated the septum pellucidum as well in an a ttempt to promote biventricular flow between the ventricles. I was able to look into the left ventri cular system and the right, identify the foramen of Monro and the caudate nuclei along with the thala mostriate veins. I felt like CSF flow was restored. I then removed the microscope and placed a new external ventricular drain in the region of the foramen Monro and secured this to the scalp. The bon e flap was then reapproximated with titanium plates and screws following copious irrigation. Small a mount of vancomycin powder was placed in the wound and the wound was then closed in anatomic layers. The patient was taken to the ICU and his ventriculostomy was now functioning in the right side.
--- NOTE | 2017-09-22 13:18 | PRG ---
DATE OF SERVICE: 09/22/2017 Thirty-five minutes critical care time. The patient was taken to the OR earlier today for a craniotomy because of malfunctioning ventriculost nicki with increased intracranial pressure. He continues to be on mechanical ventilation. He is poor ly responsive. PHYSICAL EXAMINATION: VITAL SIGNS: On exam temperature is 98.8, pulse 63, blood pressure 93/46, O2 saturation 96%. HEENT: Unremarkable. NECK: No JVD. CHEST: Clear anteriorly. CARDIOVASCULAR: S1 and S2 regular. ABDOMEN: Soft. EXTREMITIES: No edema. LABORATORY DATA: White blood cell count 19, hematocrit 39.8, platelet count 175. Sodium 135, potass ium 3.3, chloride 104, CO2 25, BUN 19, creatinine 0.7, glucose 114. ASSESSMENT: 1. Subarachnoid hemorrhage. 2. Acute respiratory failure requiring mechanical ventilation. PLAN: He is not weanable at this time. His prognosis for recovery seems quite poor. We will contin ue to follow for ventilator management.
--- NOTE | 2017-09-22 14:06 | OP ---
DATE OF PROCEDURE: 09/22/2017 ATTENDING SURGEON: Dr. Luis Wilhelm PREOPERATIVE DIAGNOSES: Intraventricular hemorrhage, altered mental status, subarachnoid hemorrhage. DESCRIPTION OF PROCEDURE: Left external ventricular drain placement. PROCEDURE NOTE: Gretel's point was localized in the left frontal scalp. This was marked, prepped wi th ChloraPrep, and draped in sterile fashion. At Gretel's point, a blade was used to incise the scal p down to the periosteum being approximately 1 cm incision. Cranial fistula was used to create a sma ll bur hole at Gretel's point in the frontal bone. The dural surface was then punctured using blunt dissection and an intraventricular catheter was placed at a depth of 6 cm without difficulty in a sin gle pass. CSF with bright red blood was immediately obtained. Pulsatile flow was appreciated. This was hooked up to a Tovar drain. The incision was closed using an Ethilon suture. Drain was also h ere to the scalp using Ethilon suture. Drain setting was set at 0 cm of water and this drained initi ally for a short period before it stopped. EVD appears to have plateaued shortly after placement. P atient did tolerate the procedure well. I discussed the procedure with Dr. Wilhelm as well.
[2017-09-22] MEDS ORDERED: Acetaminophen 1,000 MG in Premix Bag 1 BAG IVPB PRN (17:10)
[2017-09-22] MEDS: Morphine 4 MG/ML VIAL SLOW IVP PRN ×2 (18:51→22:01)
[2017-09-23] MEDS: Morphine 4 MG/ML VIAL SLOW IVP PRN (00:20)
[2017-09-23] MEDS: niMODipine 30 MG CAP PO SCH ×6 (00:45→20:33)
[2017-09-23] MEDS: Fosphenytoin Sodium 100 MG in Sodium Chloride 0.9% 100 ML IVPB SCH ×3 (00:45→17:39)
[2017-09-23] MEDS: Sodium Chloride 0.9% 1,000 ML IV SCH ×3 (00:45→17:40)
[2017-09-23] MEDS: Propofol 1,000 MG/100 ML VIAL IV PRN ×3 (00:46→20:38)
[2017-09-23] MEDS: CEFAZOLIN/Water 2 GM/20 ML SYRINGE SLOW IVP SCH ×3 (00:56→17:39)
[2017-09-23] MEDS: niCARdipine HCl 25 MG in Sodium Chloride 0.9% 250 ML 240 ML IVPB SCH ×2 (04:25→13:27)
[2017-09-23 04:57] LABS: Band 3 % (5-11); Hemoglobin 12.9 g/dL (14.0-18.0); Lymphocytes 12 % (21-51); MDiff Complete? YES; Mean Corpuscular HGB CONC 34.3 g/dL (32.0-36.0); Mean Corpuscular Hemoglobin 32.7 pg (27.0-31.0); Mean Corpuscular Volume 95.6 fl (80.0-94.0); Monocytes 10 % (0-10); Neutrophil 75 % (42-75); Platelet Count 196 thou/uL (130-400); RBC Distribution Width 13.1 % (11.5-14.5); Red Blood Cell (RBC) Count 3.95 mill/uL (4.70-6.10); White Blood Cell (WBC) Count 15.9 thou/uL (4.8-10.8)
[2017-09-23 05:42] LABS: Anion Gap 9 mmol/L (10-20); BUN (Urea Nitrogen) 15 mg/dL (8.4-25.7); Calc. Creatinine Clearance 116 mL/min (70-130); Carbon Dioxide 22 mmol/L (22-29); Chloride 106 mmol/L (98-107); Estimated GFR-MDRD Greater than 90; Glucose 118 mg/dL (70-105); Potassium 3.2 mmol/L (3.5-5.1); Sodium 134 mmol/L (136-145)
--- NOTE | 2017-09-23 08:32 | PRG ---
DATE OF SERVICE: 09/23/2017 Thirty minutes critical care time. SUBJECTIVE: The patient remains intubated on mechanical ventilation. He had a craniotomy yesterday. Neurologic status appears to be much poor than it was 2 days ago. PHYSICAL EXAMINATION: VITAL SIGNS: Temperature is 99.8, pulse 78, blood pressure 113/57 via art line. A 24-hour intake is 3758, output 2720. HEENT: Pupils 5 mm to 4 mm bilaterally. Sclerae icteric. Oropharynx clear. NECK: No JVD. LUNGS: Clear. CARDIAC: S1 and S2 regular. ABDOMEN: Soft. EXTREMITIES: No edema. LABORATORY DATA: White blood cell count 15.9, hemoglobin 12, hematocrit 37.7, platelet count 196. S odium 134, potassium 3.2, chloride 106, CO2 22, BUN 15, creatinine 0.6, glucose 118. ABG was not don e. He is currently on SIMV rate 12, tidal volume 400, PEEP 5, pressure support 10, FiO2 50%. ASSESSMENT: 1. Acute respiratory failure requiring mechanical ventilation related to the subarachnoid hemorrhage . 2. Subarachnoid hemorrhage requiring ventriculostomy and then craniotomy. 3. Possible aspiration pneumonitis and definitely some component of pulmonary edema. RECOMMENDATIONS: We will go ahead and add some gram negative coverage to his antibiotic therapy. Co ntinue mechanical ventilation. Recheck ABG tomorrow.
--- NOTE | 2017-09-23 08:34 | RAD ---
CHEST 1 VIEW: History Ventilated patient. COMPARISON: Radiograph from prior day. FINDINGS: The patient is intubated with endotracheal tube in god position with the tip above the jarrett at 5.5 cm. Enteric tube is in similar position to prior exam. Layer effusion is present. Bibasilar atelec tasis or consolidation. No pneumothorax. Cardiac silhouette and mediastinal contour is similar. IMPRESSION: Similar appearance to the chest. No significant change. POS: [facility]
[2017-09-23 10:12] LABS: CO2 Tension 27.3 mmHg (35.0-45.0); pH, Arterial 7.51 (7.35-7.45)
[2017-09-23 10:26] LABS: Actual Bicarbonate (HCO3a) 21.1 mEq/L (22-26); Base Excess (BEa) -0.8 mEq/L (0 (+/-) 2.5); Hematocrit-ABG 40.7 % (42.0-52.0); Hemoglobin (Hb) 12.8 g/dL (14.0-18.0); O2 Tension (PaO2) 49.6 mmHg (80.0-100.0)
[2017-09-23 10:27] LABS: ALV-art Gradient 272.775 (0-20); Calcium, Ionized 1.1 mmol/L (1.12-1.30); Puncture Site ALINE
[2017-09-23] MEDS: Pantoprazole 40 MG VIAL IVP SCH (10:59)
--- NOTE | 2017-09-23 16:31 | PRG ---
DATE OF SERVICE: 09/23/2017 SUBJECTIVE: Mr. Martinez remains in the ICU status post craniotomy for evacuation of intraventricular c lot. He also has a ventriculostomy in place which is currently pending. He is on a mild degree of s edation. He opens his eyes to stimulation and moves all 4 extremities spontaneously, but does not do so to command. PLAN: From a neurosurgical perspective, will be ongoing ICU management. We will continue with exter nal ventricular drainage and hopes that his exam continues to improve over the ensuing days. I have tried to reach out to his family unsuccessfully and we will make an attempt again this afternoon.
[2017-09-24] MEDS: niMODipine 30 MG CAP PO SCH ×6 (02:00→22:09)
[2017-09-24] MEDS: Fosphenytoin Sodium 100 MG in Sodium Chloride 0.9% 100 ML IVPB SCH ×3 (02:00→18:47)
[2017-09-24] MEDS: CEFAZOLIN/Water 2 GM/20 ML SYRINGE SLOW IVP SCH ×3 (02:00→18:32)
[2017-09-24] MEDS: Sodium Chloride 0.9% 1,000 ML IV SCH ×3 (02:00→18:33)
[2017-09-24] MEDS: Propofol 1,000 MG/100 ML VIAL IV PRN ×2 (02:01→18:32)
[2017-09-24] MEDS: Morphine 4 MG/ML VIAL SLOW IVP PRN (03:41)
[2017-09-24 05:43] LABS: Anion Gap 12 mmol/L (10-20); BUN (Urea Nitrogen) 20 mg/dL (8.4-25.7); Calc. Creatinine Clearance 98 mL/min (70-130); Calcium 8.1 mg/dL (7.8-10.44); Carbon Dioxide 18 mmol/L (22-29); Chloride 111 mmol/L (98-107); Estimated GFR-MDRD Greater than 90; Glucose 139 mg/dL (70-105); Potassium 3.5 mmol/L (3.5-5.1); Sodium 137 mmol/L (136-145)
[2017-09-24 06:23] LABS: Band 10 % (5-11); Hemoglobin 12.5 g/dL (14.0-18.0); Lymphocytes 13 % (21-51); MDiff Complete? YES; Mean Corpuscular HGB CONC 33.9 g/dL (32.0-36.0); Mean Corpuscular Volume 97.4 fl (80.0-94.0); Mean Platelet Volume 7.1 fL (7.4-10.4); Monocytes 11 % (0-10); Neutrophil 65 % (42-75); Platelet Count 221 thou/uL (130-400); RBC Distribution Width 13.1 % (11.5-14.5); Red Blood Cell (RBC) Count 3.78 mill/uL (4.70-6.10); White Blood Cell (WBC) Count 14.5 thou/uL (4.8-10.8)
[2017-09-24 08:14] LABS: Actual Bicarbonate (HCO3a) 19.2 mEq/L (22-26); CO2 Tension 27.1 mmHg (35.0-45.0); O2 Tension (PaO2) 56.5 mmHg (80.0-100.0); pH, Arterial 7.47 (7.35-7.45)
[2017-09-24 08:15] LABS: Base Excess (BEa) -3.2 mEq/L (0 (+/-) 2.5); Hematocrit-ABG 39.2 % (42.0-52.0); Hemoglobin (Hb) 12.5 g/dL (14.0-18.0)
[2017-09-24 08:16] LABS: ALV-art Gradient 266.125 (0-20); Calcium, Ionized 1.2 mmol/L (1.12-1.30); Puncture Site ALINE
--- NOTE | 2017-09-24 10:13 | RAD ---
AP VIEW OF THE CHEST: INDICATION: History of intubation. COMPARISON: Prior exam performed on 09/23/17. FINDINGS: ET tube and gastric catheter are unchanged. There is improvement in the central edema pattern. Bila teral pleural effusions have improved. Gastric catheter is unchanged. No pneumothorax is evident. IMPRESSION: Improving central edema pattern. POS: [facility]
[2017-09-24] MEDS: Pantoprazole 40 MG VIAL IVP SCH (10:31)
[2017-09-24] MEDS ORDERED: Pancrelipase DR 12000 1 CAP FS PRN (13:45)
[2017-09-24] MEDS ORDERED: Sodium Bicarbonate Tab 325 MG TAB PER TUBE PRN (13:45)
--- NOTE | 2017-09-24 23:16 | PRG ---
DATE OF SERVICE: 09/24/2017 SUBJECTIVE: Mr. Martinez remains mechanically ventilated. He is tachypneic. His minute volume is 19 l iters a minute. OBJECTIVE: VITAL SIGNS: Heart rate 89, blood pressure 134/78, respiratory rates in the high 20s. LUNGS: Clear. HEART: Regular rhythm. ABDOMEN: Soft. EXTREMITIES: Without asymmetry. IMAGING: Chest radiograph was reviewed. Pulmonary edema is improved. Intake and output is positive 3065. LABORATORY DATA: White count 14.5, hemoglobin 12.5, platelets 221,000. Sodium 137, potassium 3.5, chloride 111, bicarbonate 18, BUN 20, creatinine 0.79. A pH of 747, CO2 of 27, pO2 of 56. IMPRESSION: 1. Respiratory failure, volume alone precludes weaning from mechanical ventilation. 2. Pulmonary edema ? neurogenic. 3. Status post subarachnoid hemorrhage requiring ventriculostomy and craniotomy. 4. ? aspiration pneumonitis. 5. Hypertension. 6. Hyperchloremic acidosis, that is mild. PLAN: Continue supportive care. He is not weanable from mechanical ventilation. Continue antimicro bials and respiratory care. Critical care time was 30 minutes.
[2017-09-25] MEDS: Fosphenytoin Sodium 100 MG in Sodium Chloride 0.9% 100 ML IVPB SCH ×3 (01:37→17:30)
[2017-09-25] MEDS: Propofol 1,000 MG/100 ML VIAL IV PRN ×3 (01:38→20:52)
[2017-09-25] MEDS: CEFAZOLIN/Water 2 GM/20 ML SYRINGE SLOW IVP SCH ×3 (01:38→17:30)
[2017-09-25] MEDS: niMODipine 30 MG CAP PO SCH ×6 (01:38→20:33)
[2017-09-25] MEDS: Sodium Chloride 0.9% 1,000 ML IV SCH ×3 (01:44→20:51)
[2017-09-25 05:15] LABS: Anion Gap 5 mmol/L (10-20); BUN (Urea Nitrogen) 18 mg/dL (8.4-25.7); Calc. Creatinine Clearance 108 mL/min (70-130); Calcium 8.1 mg/dL (7.8-10.44); Carbon Dioxide 22 mmol/L (22-29); Chloride 114 mmol/L (98-107); Estimated GFR-MDRD Greater than 90; Glucose 140 mg/dL (70-105); Potassium 3.3 mmol/L (3.5-5.1); Sodium 138 mmol/L (136-145)
[2017-09-25 06:03] LABS: Hemoglobin 12.3 g/dL (14.0-18.0); Mean Corpuscular HGB CONC 33.1 g/dL (32.0-36.0); Mean Corpuscular Hemoglobin 32.4 pg (27.0-31.0); Mean Corpuscular Volume 97.7 fl (80.0-94.0); Mean Platelet Volume 7.2 fL (7.4-10.4); Platelet Count 204 thou/uL (130-400); RBC Distribution Width 13.2 % (11.5-14.5); Red Blood Cell (RBC) Count 3.81 mill/uL (4.70-6.10); White Blood Cell (WBC) Count 13.1 thou/uL (4.8-10.8)
[2017-09-25 06:12] LABS: Band 4 % (5-11); Eosinophils 2 % (0-10); Lymphocytes 13 % (21-51); MDiff Complete? YES; Metamyelocyte 1 % (0-0); Monocytes 11 % (0-10); Neutrophil 68 % (42-75)
[2017-09-25] MEDS: Labetalol HCl 100 MG/20 ML VIAL SLOW IVP PRN (07:53)
[2017-09-25] MEDS ORDERED: Vecuronium 10 MG VIAL ONE (08:16)
--- NOTE | 2017-09-25 09:27 | RAD ---
AP VIEW CHEST: HISTORY: Ventilator-dependent patient. FINDINGS: AP view chest was obtained on 09/25/17. Comparison is made to previous exam from 09/24/17. AP view chest demonstrates nasogastric and endotracheal tubes to be in place. Cardiomegaly is seen. Pulmonary vascular congestion is seen. There is blunting of the left costophrenic angle. Areas of patchy density seen in the left lung base compatible with atelectasis or pneumonia. IMPRESSION: 1. Pulmonary vascular congestion. 2. Areas of patchy density in the left lung base. POS: [facility]
[2017-09-25] MEDS: Pantoprazole 40 MG VIAL IVP SCH (09:43)
--- NOTE | 2017-09-25 10:22 | CT ---
CT OF THE BRAIN WITHOUT IV CONTRAST: INDICATION: History of IVH with change in mentation. COMPARISON: Prior exam dated 09/22/17. FINDINGS: The right frontal intraventricular catheter is unchanged in position and projects into the anterior h orn of the right lateral ventricle. The previously seen left ventriculostomy catheter has been remov ed. The extent of the intraventricular hemorrhage is stable. The extent of the pneumocephalus invol ving the anterior cranial fossa as well as both lateral ventricles has improved. There is scattered subarachnoid hemorrhage seen along the sulci of the cerebral convexities as well as layered along the tentorium that appears stable. The intraventricular hemorrhage seen within the 4th ventricle is sta ble. The basilar cisterns remain patent. No apparent midline shift is noted. The craniotomy change s and bilateral frontal sepideh holes appear similar. There are bilateral mastoid effusions. Paranasal sinuses remain intact. No keegan hydrocephalus is present. There is a stable complete opacification of the left maxillary sinus. IMPRESSION: Interval removal of left frontal ventriculostomy catheter. Right ventriculostomy catheter projects i n the expected position in the anterior horn of the right lateral ventricle. There is improvement in the pneumocephalus seen bilaterally. Scattered subarachnoid hemorrhage and interventricular hemorrh age is stable. No hydrocephalus, midline shift, or acute infarct is grossly evident. POS: [facility]
[2017-09-25 11:39] LABS: Actual Bicarbonate (HCO3a) 18.6 mEq/L (22-26); Base Excess (BEa) -3.9 mEq/L (0 (+/-) 2.5); CO2 Tension 26.9 mmHg (35.0-45.0); Hematocrit-ABG 38.7 % (42.0-52.0); pH, Arterial 7.46 (7.35-7.45)
[2017-09-25 11:40] LABS: Hemoglobin (Hb) 12.7 g/dL (14.0-18.0)
[2017-09-25 11:42] LABS: Calcium, Ionized 1.2 mmol/L (1.12-1.30)
[2017-09-25 11:43] LABS: ALV-art Gradient 270.875 (0-20); Puncture Site RRA
[2017-09-25] MEDS: Scopolamine 1.5 mg/72 hour Patch TOP SCH (13:21)
[2017-09-25] MEDS ORDERED: Furosemide 100 MG/10 ML VIAL SLOW IVP SCH (15:15)
--- NOTE | 2017-09-25 15:18 | PRG ---
DATE OF SERVICE: 09/25/2017 SUBJECTIVE: Mr. Martinez is more tachypneic today. His ventriculostomy malfunctioned. This morning, he went for CT scanning. Interpretation of his head CT was that there was no hydrocephalus. His ventriculostomy started working later today and is now working, I am told. His intake and output is positive 3300. OBJECTIVE: GENERAL: I could only get him to barely open his eyes to sternal rub, could not get him to really localize to anything. LUNGS: Clear. HEART: Regular rhythm. ABDOMEN: Soft. LABORATORY AND IMAGING DATA: White count 13.1, hemoglobin 12.3 and platelets 204,000. Sodium 138, potassium 3.3, chloride 114, bicarbonate 22, BUN 18 and creatinine 0.73. Chest radiograph shows mild interstitial edema. ASSESSMENT AND PLAN: Fluid balance has been 1-3 liters positive for the last few days. We gave him some furosemide this afternoon. He required paralytics for his CT scan because he was tachypneic. I have increased his rate to 24 in the event that he requires paralytics again, but we can start decreasing his ventilatory rate tomorrow. He is not neurologically intact enough to consider extubation. Scopolamine was added today for his oral secretions. Critical care time 40 minutes. [facility]
[2017-09-26] MEDS: CEFAZOLIN/Water 2 GM/20 ML SYRINGE SLOW IVP SCH ×3 (01:15→17:52)
[2017-09-26] MEDS: niMODipine 30 MG CAP PO SCH ×6 (01:15→20:29)
[2017-09-26] MEDS: Fosphenytoin Sodium 100 MG in Sodium Chloride 0.9% 100 ML IVPB SCH ×3 (01:15→17:56)
[2017-09-26] MEDS: Propofol 1,000 MG/100 ML VIAL IV PRN (04:33)
[2017-09-26] MEDS: Sodium Chloride 0.9% 1,000 ML IV SCH ×2 (04:36→09:50)
[2017-09-26 05:20] LABS: Anion Gap 10 mmol/L (10-20); BUN (Urea Nitrogen) 22 mg/dL (8.4-25.7); Calc. Creatinine Clearance 94 mL/min (70-130); Calcium 8.3 mg/dL (7.8-10.44); Carbon Dioxide 22 mmol/L (22-29); Chloride 111 mmol/L (98-107); Estimated GFR-MDRD Greater than 90; Glucose 127 mg/dL (70-105); Potassium 3.7 mmol/L (3.5-5.1); Sodium 139 mmol/L (136-145)
[2017-09-26 05:27] LABS: Band 15 % (5-11); Eosinophils 2 % (0-10); Lymphocytes 26 % (21-51); MDiff Complete? YES; Mean Corpuscular HGB CONC 33.9 g/dL (32.0-36.0); Mean Corpuscular Hemoglobin 32.7 pg (27.0-31.0); Mean Corpuscular Volume 96.5 fl (80.0-94.0); Mean Platelet Volume 7.1 fL (7.4-10.4); Monocytes 14 % (0-10); Neutrophil 42 % (42-75); Platelet Count 200 thou/uL (130-400); RBC Distribution Width 13.4 % (11.5-14.5); Red Blood Cell (RBC) Count 3.67 mill/uL (4.70-6.10); White Blood Cell (WBC) Count 11.8 thou/uL (4.8-10.8)
[2017-09-26 08:03] LABS: pH, Arterial 7.49 (7.35-7.45)
[2017-09-26 08:04] LABS: Actual Bicarbonate (HCO3a) 18.9 mEq/L (22-26); Base Excess (BEa) -3.1 mEq/L (0 (+/-) 2.5); CO2 Tension 25.6 mmHg (35.0-45.0); Hematocrit-ABG 37.4 % (42.0-52.0); Hemoglobin (Hb) 12.4 g/dL (14.0-18.0); O2 Tension (PaO2) 61.3 mmHg (80.0-100.0)
[2017-09-26 08:05] LABS: Calcium, Ionized 1.2 mmol/L (1.12-1.30); Puncture Site RRA
--- NOTE | 2017-09-26 08:19 | RAD ---
PORTABLE CHEST: COMPARISON: 09/25/17 study. HISTORY: Respiratory distress. FINDINGS: Heart size is enlarged. Endotracheal and NG tubes are in satisfactory position. There is increased pulmonary vascular engorgement and increased perihilar lung markings suggesting some worsening edema. IMPRESSION: Appearance of worsening pulmonary edema change. POS: [facility]
--- NOTE | 2017-09-26 08:45 | PRG ---
DATE OF SERVICE: 09/26/2017 Thirty-five minutes critical care time. The patient remains intubated on mechanical ventilation. He will not awaken, but does move when stim ulated. PHYSICAL EXAMINATION: VITAL SIGNS: Temperature is 99.6, pulse 82, blood pressure 123/72. 24 hour intake 4165, output 3579 . HEENT: Unremarkable. NECK: No JVD. LUNGS: Clear. CARDIOVASCULAR: S1, S2 regular. ABDOMEN: Soft. EXTREMITIES: No edema. LABORATORY DATA: Sodium 139, potassium 3.7, chloride 111, CO2 22, BUN 22, creatinine 0.8, glucose 12 7. White blood cell count 11.8, hematocrit 35.4, platelet count 200. ABG; pH 7.49, pCO2 25, pO2 61 on SIMV rate 24, tidal volume 400, PEEP 10, pressure support 10, FiO2 50%. ASSESSMENT: 1. Subarachnoid hemorrhage. 2. Acute respiratory failure requiring mechanical ventilation. 3. Hypoxemia. 4. Possible aspiration pneumonia versus pulmonary edema from the subarachnoid hemorrhage. PLAN: 1. He was desynchronous with the ventilator. I have increased his tidal volume. 2. Decrease respiratory rate. 3. Not weanable secondary to mental status. 4. May be looking at a trach and PEG if not better by the end of the week. 5. Will discuss with family when I see them later today.
--- NOTE | 2017-09-26 09:27 | PRG ---
DATE OF SERVICE: 09/26/2017 SUBJECTIVE: Over the course of weekend, Mr. Martinez has been essentially stable. Neurologically, I be lieve he is worse than he was on Tuesday when I saw him where he was opening his eyes both spontaneous ly and occasionally to stimulation. At that time, he is also moving all 4 of his extremities occasio loco and spontaneously. This morning over the past 48 hours or so, he is less responsive even off o f sedation. His EVD was intermittently working over the weekend, but it is clearly patent this morni ng. He had a repeat CT scan performed of the weekend which showed no concerns for hydrocephalus or o bvious ischemic events. He continues to have intraventricular blood as well as subarachnoid blood. I had a discussion with his niece this morning about level of care moving forward. I indicated to he r that we are at a point where we need to decide PEG and trach versus comfort care only. I am with e day less optimistic about Mr. Martinez's recovery given his decline neurologically over the past cou ple of days. She will discuss this with family members and get back with us and let us know how they wish to proceed.
[2017-09-26] MEDS: Pantoprazole 40 MG VIAL IVP SCH (09:49)
[2017-09-26] MEDS: Acetaminophen 650 MG/20.3 ML UDCUP PER TUBE PRN (20:30)
[2017-09-27] MEDS: Fosphenytoin Sodium 100 MG in Sodium Chloride 0.9% 100 ML IVPB SCH ×3 (01:14→16:16)
[2017-09-27] MEDS: CEFAZOLIN/Water 2 GM/20 ML SYRINGE SLOW IVP SCH ×3 (01:14→17:43)
[2017-09-27] MEDS: niMODipine 30 MG CAP PO SCH ×6 (01:15→20:09)
[2017-09-27] MEDS: Acetaminophen 650 MG/20.3 ML UDCUP PER TUBE PRN ×2 (01:16→20:09)
[2017-09-27] MEDS: Sodium Chloride 0.9% 1,000 ML IV SCH (04:12)
[2017-09-27 04:37] LABS: #Eosinphils 0.4 thou/uL (0.0-0.7); #Lymphocytes 2.1 thou/uL (1.20-3.40); #Monocytes 1.7 thou/uL (0.11-0.59); #Neutrophils 9.6 thou/uL (1.40-6.50); %Eosinophils 2.6 % (0.0-10.0); %Lymphocytes 15.1 % (21.0-51.0); %Monocytes 12.5 % (0.0-10.0); %Neutrophils 69.8 % (42.0-75.0); Hemoglobin 12.6 g/dL (14.0-18.0); Mean Corpuscular HGB CONC 33.8 g/dL (32.0-36.0); Mean Corpuscular Hemoglobin 32.7 pg (27.0-31.0); Mean Corpuscular Volume 96.7 fl (80.0-94.0); Mean Platelet Volume 7.5 fL (7.4-10.4); Platelet Count 217 thou/uL (130-400); RBC Distribution Width 13.8 % (11.5-14.5); Red Blood Cell (RBC) Count 3.85 mill/uL (4.70-6.10); White Blood Cell (WBC) Count 13.8 thou/uL (4.8-10.8)
[2017-09-27 04:53] LABS: Anion Gap 10 mmol/L (10-20); BUN (Urea Nitrogen) 26 mg/dL (8.4-25.7); Calc. Creatinine Clearance 96 mL/min (70-130); Calcium 8.4 mg/dL (7.8-10.44); Carbon Dioxide 22 mmol/L (22-29); Chloride 112 mmol/L (98-107); Estimated GFR-MDRD Greater than 90; Glucose 110 mg/dL (70-105); Potassium 3.4 mmol/L (3.5-5.1); Sodium 141 mmol/L (136-145)
[2017-09-27] MEDS: Labetalol HCl 100 MG/20 ML VIAL SLOW IVP PRN ×2 (06:28→10:52)
[2017-09-27 06:55] LABS: Actual Bicarbonate (HCO3a) 18.9 mEq/L (22-26); Base Excess (BEa) -3.1 mEq/L (0 (+/-) 2.5); CO2 Tension 25.7 mmHg (35.0-45.0); Hematocrit-ABG 37.1 % (42.0-52.0); Hemoglobin (Hb) 12.5 g/dL (14.0-18.0); O2 Tension (PaO2) 61.7 mmHg (80.0-100.0); pH, Arterial 7.49 (7.35-7.45)
[2017-09-27 06:56] LABS: ALV-art Gradient 262.675 (0-20); Calcium, Ionized 1.2 mmol/L (1.12-1.30); Puncture Site RRA
--- NOTE | 2017-09-27 08:43 | PRG ---
DATE OF SERVICE: 09/27/2017 The patient remains in the CCU on mechanical ventilation. There have been no acute changes overnight . PHYSICAL EXAMINATION: VITAL SIGNS: Temperature 99.1, pulse 89, blood pressure 140/81. He is requiring no nicardipine. Se dation has been off since 8:00 p.m. last night. HEENT: He will open his eyes to vigorous shaking, will not follow commands. Pupils are reactive. O ropharynx clear. NECK: No JVD. LUNGS: Clear. CARDIAC: S1 and S2 regular. ABDOMEN: Soft. EXTREMITIES: No edema. LABORATORY DATA: ABG -- pH 7.49, pCO2 27, pO2 61 on SIMV rate 18, tidal volume 550, PEEP 10, pressur e support 10, FiO2 50%. White blood cell count 13.8, hematocrit 37.3, platelet count 217. Sodium 14 1, potassium 3.4, chloride 112, CO2 22, BUN 26, creatinine 0.8, glucose 110. Chest x-ray shows some segmental atelectasis in the left base, otherwise clear. ASSESSMENT: 1. Acute respiratory failure requiring mechanical ventilation. 2. Status post subarachnoid hemorrhage. 3. Malignant hypertension. 4. Aspiration pneumonitis. PLAN: 1. Continue antibiotics. 2. Decrease respiratory rate. 3. Continue enteral tube feeds. 4. May need trach and PEG if mental status is not improved by the end of the week.
--- NOTE | 2017-09-27 08:58 | RAD ---
PORTABLE CHEST: Date: 09/27/17 HISTORY: Respiratory distress. COMPARISON: Prior day's study. FINDINGS: Endotracheal and NG tubes are in satisfactory position. Heart size is within normal limits. Pulmonary vessels are less engorged than on the prior examination and improvement to the bibasilar lung change s. IMPRESSION: Improving pulmonary edema change. POS: [facility]
--- NOTE | 2017-09-27 09:24 | CT ---
PRELIMINARY REPORT/[facility]/EMERG[facility] AFTER-HOURS PROCEDURE CT Head Without Intravenous Contrast CLINICAL HISTORY: 56 years old, male; Condition or disease; Other: F/u bleed TECHNIQUE: Axial computed tomography images of the head/brain without intravenous contrast. COMPARISON: CT Brain WO Con 2017-09-25 08:41 FINDINGS: Brain: Scattered subarachnoid hemorrhage bilaterally, slightly decreased. Intraventricular hemorrhage with decreased blood products in the fourth ventricle, otherwise overall similar to previous exam. V entriculostomy catheter tip in the frontal horn of the right lateral ventricle with hypoattenuation and minimal decreased hemorrhage along its course. Slight decrease in caliber of the right lateral ventricle, otherwise unchanged. Decreased pneumocephalus. No new hemorrhage identified. Ventricles: See above. Bones/joints: Unremarkable. No acute fracture. Soft tissues: Unremarkable. Sinuses: Opacification of the left maxillary sinus, unchanged. Mastoid air cells: Unremarkable. IMPRESSION: Mild decrease in diffuse subarachnoid hemorrhage. Right lateral ventricle slightly smaller, ventricle s otherwise similar to previous exam with persistent intraventricular hemorrhage. Thank you for allowing us to participate in the care of your patient. Dictated and Authenticated by: Xander Sahu MD 09/27/2017 4:11 AM Central Time ([place] & [place]) CT HEAD NONCONTRAST: Date: 09-27-17 performed on emergency basis at 0337. History: Intracranial hemorrhage. Follow up. Comparison: 09-25-17 FINDINGS: The findings agree with the preliminary report by Dr. Melchor from [facility]. Right frontal earnest triculostomy catheter remains in place. There has been slight interval decrease in overall volume of intracranial hemorrhage. Slight decompression of the ventricular system. Code QA POS: [facility]
[2017-09-27] MEDS: Pantoprazole 40 MG GRANULES PACKET PER TUBE SCH (09:28)
--- NOTE | 2017-09-27 14:30 | PRG ---
DATE OF SERVICE: 09/27/2017 Mr. Martinez is a 56-year-old man who is now on the 7th day of his hospital stay following IVH. This mo rning, he has actually been awake and following commands, which is significant improvement from the l ast 4 days or so. So, this is a great progress in my assessment. The family yesterday had a family meeting regarding the possibility of trach and PEG and other transitions to palliative care. However , now I think that may be best to hold off and wait. He had a repeat brain CT this morning that show s potential early enlargement of the temporal horns bilaterally, but this also may be because the CT scans at a different angle than the other CT from yesterday. It does not look there is diffuse evolu tion in size of his ventricular system, so I think this is a good sign in terms of leaving the EVD cl amped. We will continue to monitor his neurologic progress. Also discussed with Dr. Moser.
[2017-09-28] MEDS: Fosphenytoin Sodium 100 MG in Sodium Chloride 0.9% 100 ML IVPB SCH ×3 (01:14→17:08)
[2017-09-28] MEDS: CEFAZOLIN/Water 2 GM/20 ML SYRINGE SLOW IVP SCH ×2 (01:14→09:50)
[2017-09-28] MEDS: niMODipine 30 MG CAP PO SCH ×6 (01:14→20:59)
[2017-09-28] MEDS: Sodium Chloride 0.9% 1,000 ML IV SCH (01:22)
[2017-09-28] MEDS: Propofol 1,000 MG/100 ML VIAL IV PRN (02:51)
[2017-09-28 04:29] LABS: #Eosinphils 0.4 thou/uL (0.0-0.7); #Lymphocytes 2.2 thou/uL (1.20-3.40); #Monocytes 1.5 thou/uL (0.11-0.59); #Neutrophils 12.7 thou/uL (1.40-6.50); %Basophils 0.2 % (0.0-1.0); %Eosinophils 2.2 % (0.0-10.0); %Lymphocytes 13.1 % (21.0-51.0); %Monocytes 8.8 % (0.0-10.0); %Neutrophils 75.8 % (42.0-75.0); Hemoglobin 12.2 g/dL (14.0-18.0); Mean Corpuscular HGB CONC 32.9 g/dL (32.0-36.0); Mean Corpuscular Hemoglobin 31.9 pg (27.0-31.0); Mean Corpuscular Volume 97.1 fl (80.0-94.0); Mean Platelet Volume 7.8 fL (7.4-10.4); Platelet Count 260 thou/uL (130-400); RBC Distribution Width 13.7 % (11.5-14.5); Red Blood Cell (RBC) Count 3.82 mill/uL (4.70-6.10); White Blood Cell (WBC) Count 16.8 thou/uL (4.8-10.8)
[2017-09-28 04:38] LABS: Anion Gap 10 mmol/L (10-20); BUN (Urea Nitrogen) 27 mg/dL (8.4-25.7); Calc. Creatinine Clearance 107 mL/min (70-130); Calcium 8.6 mg/dL (7.8-10.44); Carbon Dioxide 21 mmol/L (22-29); Chloride 113 mmol/L (98-107); Estimated GFR-MDRD Greater than 90; Glucose 116 mg/dL (70-105); Sodium 140 mmol/L (136-145)
[2017-09-28 07:34] LABS: CO2 Tension 21.4 mmHg (35.0-45.0); O2 Tension (PaO2) 83.1 mmHg (80.0-100.0); pH, Arterial 7.53 (7.35-7.45)
[2017-09-28 07:35] LABS: Actual Bicarbonate (HCO3a) 17.5 mEq/L (22-26); Base Excess (BEa) -3.4 mEq/L (0 (+/-) 2.5); Calcium, Ionized 1.2 mmol/L (1.12-1.30); Hematocrit-ABG 36.8 % (42.0-52.0); Hemoglobin (Hb) 12.2 g/dL (14.0-18.0); Puncture Site LRA
[2017-09-28] MEDS ORDERED: Furosemide 40 MG/4 ML VIAL SLOW IVP SCH (07:45)
--- NOTE | 2017-09-28 07:46 | PRG ---
DATE OF SERVICE: 09/28/2017 Thirty-five minutes critical care time. The patient remains intubated on mechanical ventilation. He will wake up. Apparently follows some avelina alvarez intermittently, but I can get him to follow anything for me this morning. He did require aman e sedation last night because he became agitated. PHYSICAL EXAMINATION: VITAL SIGNS: Temperature is 98.9, pulse 91, blood pressure 127/74, O2 sat looks like is generally ru nning in the low 90s. 24 hour intake 2677, output 1845. Weight is now 160 pounds which is approxima tely 16 pounds above his baseline weight. HEENT: Pupils react. Sclerae anicteric. Oropharynx poor dentition. NECK: No JVD. LUNGS: Coarse breath sounds. CARDIOVASCULAR: S1, S2 tachycardic. ABDOMEN: Soft, nontender. EXTREMITIES: No edema. LABORATORY DATA: White blood cell count 16.8, hemoglobin 12, hematocrit 37.1, platelet count 260. S odium 140, potassium 4.0, chloride 113, CO2 21, BUN 27, creatinine 0.8, glucose 116. Clostridium dif ficile was negative. ASSESSMENT: 1. Subarachnoid hemorrhage. 2. Encephalopathy secondary subarachnoid hemorrhage. 3. Acute respiratory failure requiring mechanical ventilation. 4. Gross fluid overload. 5. Aspiration pneumonitis. PLAN: Need to start diuresing the patient some, hold IV fluids, continue enteral tube feeds. Not we anable from the ventilator until his oxygenation is better. Trach and PEG tube may need to be consid ered if mental status does not improve appreciably over what we are seeing currently.
--- NOTE | 2017-09-28 08:03 | RAD ---
PORTABLE UPRIGHT FRONTAL CHEST RADIOGRAPH: Date: 09-28-17 History: On ventilator. Follow up evaluation. Comparison: 09-27-17 FINDINGS: Nasogastric tube remains in place and unchanged in position. Cardiac silhouette is magnified by proje ction. There is interstitial and patchy airspace opacity in the region of the lingula which may be re lated to either atelectasis or pneumonitis. There is linear atelectasis at the left lung base. Right lung is clear. Pulmonary vasculature is within normal limits. IMPRESSION: Patchy airspace opacity in the region of the lingula which could be related to either atelectasis or pneumonitis. Continued follow up is recommended. POS: [facility]
[2017-09-28] MEDS: Pantoprazole 40 MG GRANULES PACKET PER TUBE SCH (09:50)
--- NOTE | 2017-09-28 12:53 | PRG ---
DATE OF PROCEDURE: 09/28/2017 Mr. Martinez continues to recover in the ICU from a predominantly intraventricular hemorrhage with subarachnoid hemorrhage components. He has had a ventriculostomy in place since admission. Over the last 24 hours, he is improved neurologically. He now quickly opens his eyes to light stimulation and occasionally to voice. He intermittently follows commands. We had his drain clamped over roughly 36 hours at this point in time. It does not appear to have compromised his neurologic exam in fact it is improved. My inclination is to perform repeat imaging of his brain tomorrow morning and if there are no overt signs of hydrocephalus, pull the ventriculostomy tube. If he remains neurologically stable through tomorrow morning, we will pull the ventriculostomy tube. I will defer the rest to Pulmonary with respect to wean ability and extubation. The family is currently having discussions, at sometimes consensus ones regarding PEG and trach placement. OZZY
[2017-09-28] MEDS: Scopolamine 1.5 mg/72 hour Patch TOP SCH (14:32)
[2017-09-28 15:44] LABS: Potassium 3.7 mmol/L (3.5-5.1)
[2017-09-28] MEDS: Morphine 4 MG/ML VIAL SLOW IVP PRN ×2 (17:07→22:22)
[2017-09-28] MEDS: Acetaminophen 650 MG/20.3 ML UDCUP PER TUBE PRN (22:45)
[2017-09-29] MEDS: niMODipine 30 MG CAP PO SCH ×7 (01:26→23:51)
[2017-09-29] MEDS: Fosphenytoin Sodium 100 MG in Sodium Chloride 0.9% 100 ML IVPB SCH ×4 (01:26→23:52)
[2017-09-29 05:29] LABS: #Basophils 0.1 thou/uL (0.0-0.2); #Eosinphils 0.5 thou/uL (0.0-0.7); #Lymphocytes 2.5 thou/uL (1.20-3.40); #Monocytes 1.8 thou/uL (0.11-0.59); #Neutrophils 12.5 thou/uL (1.40-6.50); %Basophils 0.4 % (0.0-1.0); %Eosinophils 3.1 % (0.0-10.0); %Lymphocytes 14.4 % (21.0-51.0); %Monocytes 10.3 % (0.0-10.0); %Neutrophils 71.8 % (42.0-75.0); Hemoglobin 11.4 g/dL (14.0-18.0); Mean Corpuscular HGB CONC 32.7 g/dL (32.0-36.0); Mean Corpuscular Hemoglobin 31.9 pg (27.0-31.0); Mean Corpuscular Volume 97.6 fl (80.0-94.0); Mean Platelet Volume 8.1 fL (7.4-10.4); Platelet Count 243 thou/uL (130-400); RBC Distribution Width 13.4 % (11.5-14.5); Red Blood Cell (RBC) Count 3.59 mill/uL (4.70-6.10); White Blood Cell (WBC) Count 17.4 thou/uL (4.8-10.8)
[2017-09-29 05:43] LABS: Anion Gap 6 mmol/L (10-20); BUN (Urea Nitrogen) 31 mg/dL (8.4-25.7); Calc. Creatinine Clearance 110 mL/min (70-130); Calcium 8.5 mg/dL (7.8-10.44); Carbon Dioxide 23 mmol/L (22-29); Chloride 115 mmol/L (98-107); Estimated GFR-MDRD Greater than 90; Glucose 116 mg/dL (70-105); Potassium 3.6 mmol/L (3.5-5.1); Sodium 140 mmol/L (136-145)
[2017-09-29 07:18] LABS: Base Excess (BEa) -2.9 mEq/L (0 (+/-) 2.5); CO2 Tension 28.6 mmHg (35.0-45.0); Calcium, Ionized 1.2 mmol/L (1.12-1.30); Hematocrit-ABG 32.1 % (42.0-52.0); pH, Arterial 7.46 (7.35-7.45)
[2017-09-29 07:19] LABS: Peep/CPAP 7.5 cmH2O; Puncture Site LRA
[2017-09-29] MEDS: Acetaminophen 650 MG/20.3 ML UDCUP PER TUBE PRN ×2 (07:48→13:16)
[2017-09-29] MEDS ORDERED: Furosemide 20 MG/2 ML VIAL SLOW IVP SCH (08:45)
[2017-09-29] MEDS: Pantoprazole 40 MG GRANULES PACKET PER TUBE SCH (08:52)
--- NOTE | 2017-09-29 08:57 | PRG ---
DATE OF SERVICE: 09/29/2017 Thirty-five minutes critical care time. The patient remains intubated on mechanical ventilation. He is more awake than he was yesterday. He follows some commands for me. PHYSICAL EXAMINATION: VITAL SIGNS: His temperature is 101.5, pulse 85, blood pressure 132/75, 79, total intake 1405, outpu t 1530. HEENT: Pupils reactive. Sclerae icteric. Oropharynx clear. NECK: No JVD. CHEST: Clear without wheezing or rhonchi. CARDIAC: S1 and S2 regular. ABDOMEN: Soft. EXTREMITIES: No edema. LABORATORY DATA: Sodium 140, potassium 3.6, chloride 115, CO2 of 23, BUN 31, creatinine 0.7, glucose 116, pH 7.46, pCO2 28, pO2 of 80, on SIMV rate 12, tidal volume 550, PEEP 7.5, pressure support 10, FiO2 50%. White blood cell count 17.4, hematocrit 35, platelet count 243. Chest x-ray shows no disc ernible change. ASSESSMENT: 1. Acute respiratory failure requiring mechanical ventilation. 2. Status post subarachnoid hemorrhage. 3. Slowly improving oxygenation. 4. Aspiration pneumonitis. PLAN: 1. Continue the antibiotics, 1 more dose of diuretics. 2. I think he is improving neurologically, could probably be extubated safely sometime in the next 2 4-48 hours. I would not push a terminal extubation at this time because I think his prognosis is pre tty good. We will follow.
--- NOTE | 2017-09-29 09:10 | RAD ---
PORTABLE AP CHEST X-RAY: 09/29/2017 HISTORY: Ventilator. Follow-up evaluation. COMPARISON: 09/28/2017 FINDINGS: Endotracheal tube is noted in place with the tip overlying the T4-T5 level and above the level of the jarrett. The nasogastric tube is stable in position. The cardiac silhouette is magnified by project ion. There is increased density at the left lung base, probably related to left pleural effusion and atelectasis; however, a superimposed infiltrate related to pneumonia is also a possibility. The rig ht lung is clear. No other interval change. IMPRESSION: 1. Small left pleural effusion with associated additional increased density at the left lung base, w hich could be related to either atelectasis or superimposed pneumonia at the left lung base. Followu p to resolution is recommended. 2. Nasogastric tube and endotracheal tube noted in place. 3. Remote right-sided rib fracture, as well as a nonunion left clavicle fracture. POS: [facility]
[2017-09-29] MEDS: Lorazepam 2 MG/ML VIAL SLOW IVP PRN ×2 (10:55→23:52)
[2017-09-29] MEDS: Propofol 1,000 MG/100 ML VIAL IV PRN (11:35)
--- NOTE | 2017-09-29 13:35 | CT ---
BRAIN CT WITHOUT IV CONTRAST: Date: 09/29/17 HISTORY: 56-year-old male with intraventricular hemorrhage and changing mentation. FINDINGS: There is again noted to be extensive bilateral subarachnoid, as well as intraventricular hemorrhage w ith some improvement, particularly in the amount of intraventricular hemorrhage when compared to the most recent prior study of 09/27/17. Right ventriculostomy tube in place with some patchy low attenua tion and hemorrhagic changes around the region of the ventriculostomy tube. This appears stable. No s ignificant change in the ventricular size. IMPRESSION: Stable intraventricular and subarachnoid hemorrhagic changes. Stable ventriculostomy tube. No new mas s or hemorrhage. POS: [facility]
--- NOTE | 2017-09-29 23:15 | PRG ---
DATE OF SERVICE: 09/29/2017 ENCOUNTER TIME: 1215 hours today this afternoon. SUBJECTIVE: Mr. Martinez's exam is stable this afternoon. CT scan was performed early this morning rev eals stable ventricular size. We will go ahead and plan to remove his EVD given his stable neurologi c exam and stable CT results. The family moved overnight to place him on DNR status and is moving to [place] extubation here in the coming 24 hours. We will continue to follow along.
[2017-09-30 05:31] LABS: #Basophils 0.1 thou/uL (0.0-0.2); #Eosinphils 0.4 thou/uL (0.0-0.7); #Lymphocytes 2.2 thou/uL (1.20-3.40); #Monocytes 1.5 thou/uL (0.11-0.59); #Neutrophils 10.8 thou/uL (1.40-6.50); %Basophils 0.5 % (0.0-1.0); %Eosinophils 2.4 % (0.0-10.0); %Monocytes 10.2 % (0.0-10.0); Hemoglobin 11.6 g/dL (14.0-18.0); Mean Corpuscular Hemoglobin 32.6 pg (27.0-31.0); Mean Corpuscular Volume 98.7 fl (80.0-94.0); Mean Platelet Volume 8.3 fL (7.4-10.4); Platelet Count 259 thou/uL (130-400); RBC Distribution Width 13.5 % (11.5-14.5); Red Blood Cell (RBC) Count 3.55 mill/uL (4.70-6.10)
[2017-09-30 05:46] LABS: Anion Gap 10 mmol/L (10-20); BUN (Urea Nitrogen) 31 mg/dL (8.4-25.7); Calc. Creatinine Clearance 103 mL/min (70-130); Calcium 8.2 mg/dL (7.8-10.44); Carbon Dioxide 22 mmol/L (22-29); Chloride 113 mmol/L (98-107); Estimated GFR-MDRD Greater than 90; Glucose 122 mg/dL (70-105); Potassium 3.6 mmol/L (3.5-5.1); Sodium 141 mmol/L (136-145)
[2017-09-30] MEDS: niMODipine 30 MG CAP PO SCH ×5 (05:58→21:14)
[2017-09-30 07:29] LABS: pH, Arterial 7.54 (7.35-7.45)
[2017-09-30 07:30] LABS: Actual Bicarbonate (HCO3a) 20.6 mEq/L (22-26); Base Excess (BEa) -0.6 mEq/L (0 (+/-) 2.5); CO2 Tension 24.7 mmHg (35.0-45.0); Hematocrit-ABG 35.3 % (42.0-52.0); Hemoglobin (Hb) 11.7 g/dL (14.0-18.0); O2 Tension (PaO2) 52.5 mmHg (80.0-100.0)
[2017-09-30 07:31] LABS: ALV-art Gradient 237.475 (0-20); Calcium, Ionized 1.2 mmol/L (1.12-1.30); Puncture Site RRA
[2017-09-30] MEDS ORDERED: Furosemide 20 MG/2 ML VIAL IVP SCH (08:15)
--- NOTE | 2017-09-30 08:20 | PRG ---
DATE OF SERVICE: 09/30/2017 Thirty-five minutes critical care time. The patient remains intubated on mechanical ventilation. He is not near alert today as he was yester day. PHYSICAL EXAMINATION: VITAL SIGNS: His temperature is 101.5, pulse 95, blood pressure 111/70, 24-hour intake 1244, output 2935, weight 157 pounds. HEENT: Pupils sluggishly reactive. Sclerae icteric. Oropharynx dry. NECK: No JVD. LUNGS: Fairly clear anteriorly. CARDIOVASCULAR: S1 and S2 regular. ABDOMEN: Soft, nontender. EXTREMITIES: No edema. NEUROLOGIC: He will not follow commands for me today. LABORATORY DATA: White blood cell count 15, hematocrit 35.1, platelet count 259, pH 7.54, pCO2 24, p O2 of 53 on SIMV rate 8, tidal volume 550, PEEP 5, pressure support 10, FIO2 45%. Sodium 141, potass ium 3.6, chloride 113, CO2 20, BUN 31, creatinine 0.8, glucose 122. Chest x-ray shows no acute changes. ASSESSMENT: 1. Acute respiratory failure requiring mechanical ventilation. 2. Status post subarachnoid hemorrhage. 3. Waxing and waning neurologic status. 4. Aspiration pneumonitis. PLAN: Given continued fever, I will go ahead and extend his antibiotic coverage. Based on his menta l status I do not think he is weanable today. I am hopeful that with time he will continue to improv e, although I am not absolutely sure this will happen. I am not sure how strongly the family feels a bout extubation. I will try to discuss with them later today.
[2017-09-30] MEDS: Pantoprazole 40 MG GRANULES PACKET PER TUBE SCH (08:21)
[2017-09-30] MEDS: Fosphenytoin Sodium 100 MG in Sodium Chloride 0.9% 100 ML IVPB SCH ×2 (08:21→17:10)
--- NOTE | 2017-09-30 08:34 | RAD ---
SEMIUPRIGHT PORTABLE FRONTAL CHEST RADIOGRAPH: DATE: 09/30/17. COMPARISON: 09/29/17. HISTORY: Ventilated patient. FINDINGS: Stable endotracheal tube and nasogastric tube. Pulmonary vascular congestion and increased perihilar linear density noted. No focal consolidation identified on the right. On the left, there is prominent increased density in the perihilar region and base with partial conso lidation/collapse of the left lower lobe as well as left pleural effusion. A skin fold is seen later ally within the mid left hemithorax. IMPRESSION: Lines and tubes as above. Dense pleural and parenchymal opacity persists in the left base. POS: [facility]
[2017-09-30] MEDS: Piperacillin/Tazobactam 3.375 GM in Sodium Chloride 0.9% 100 ML IVPB SCH ×3 (08:43→21:13)
--- NOTE | 2017-09-30 11:03 | ULT ---
BILATERAL EXTREMITY VENOUS ULTRASOUND WITH DOPPLER: HISTORY: Immobile patient. Evaluate for thrombus. COMPARISON: None. TECHNIQUE: Overton scale, color flow, Doppler imaging with spectral waveform analysis was performed of the left and right lower extremity venous system. FINDINGS: Bilaterally, there is compressibility, presence of flow, and augmentation in the common femoral vein, femoral vein, and popliteal veins. There is flow in the bilateral greater saphenous vein, portal ve in, and posterior tibial veins. Mild soft tissue edema may be present. Presumed calcified plaque in the right common femoral artery, incompletely evaluated. IMPRESSION: 1. No evidence of thrombus in either left or right lower extremity venous system. 2. Mild soft tissue edema. POS: [facility]
[2017-09-30] MEDS: Acetaminophen 650 MG/20.3 ML UDCUP PER TUBE PRN ×2 (11:04→21:30)
[2017-09-30] MEDS: Lorazepam 2 MG/ML VIAL SLOW IVP PRN (16:17)
[2017-09-30] MEDS: Propofol 1,000 MG/100 ML VIAL IV PRN (17:10)
[2017-10-01] MEDS: Fosphenytoin Sodium 100 MG in Sodium Chloride 0.9% 100 ML IVPB SCH ×3 (02:04→16:46)
[2017-10-01] MEDS: niMODipine 30 MG CAP PO SCH ×7 (02:04→20:00)
[2017-10-01] MEDS: Piperacillin/Tazobactam 3.375 GM in Sodium Chloride 0.9% 100 ML IVPB SCH ×4 (03:46→20:00)
[2017-10-01 05:08] LABS: #Basophils 0.1 thou/uL (0.0-0.2); #Eosinphils 0.3 thou/uL (0.0-0.7); #Lymphocytes 2.4 thou/uL (1.20-3.40); #Monocytes 1.8 thou/uL (0.11-0.59); #Neutrophils 9.6 thou/uL (1.40-6.50); %Basophils 0.5 % (0.0-1.0); %Eosinophils 2.3 % (0.0-10.0); %Lymphocytes 16.6 % (21.0-51.0); %Monocytes 12.9 % (0.0-10.0); %Neutrophils 67.7 % (42.0-75.0); Hemoglobin 12.2 g/dL (14.0-18.0); Mean Corpuscular HGB CONC 31.7 g/dL (32.0-36.0); Mean Corpuscular Hemoglobin 31.1 pg (27.0-31.0); Mean Corpuscular Volume 98.2 fl (80.0-94.0); Mean Platelet Volume 8.6 fL (7.4-10.4); Platelet Count 193 thou/uL (130-400); RBC Distribution Width 13.7 % (11.5-14.5); Red Blood Cell (RBC) Count 3.92 mill/uL (4.70-6.10); White Blood Cell (WBC) Count 14.1 thou/uL (4.8-10.8)
[2017-10-01 05:16] LABS: Anion Gap 11 mmol/L (10-20); BUN (Urea Nitrogen) 30 mg/dL (8.4-25.7); Calc. Creatinine Clearance 103 mL/min (70-130); Calcium 8.4 mg/dL (7.8-10.44); Carbon Dioxide 22 mmol/L (22-29); Chloride 112 mmol/L (98-107); Estimated GFR-MDRD Greater than 90; Glucose 109 mg/dL (70-105); Potassium 3.8 mmol/L (3.5-5.1); Sodium 141 mmol/L (136-145)
--- NOTE | 2017-10-01 07:46 | PRG ---
DATE OF SERVICE: 10/01/2017 NEUROSURGERY PROGRESS NOTE SUBJECTIVE: Mr. Martinez was seen in the ICU this morning. He has been changed to a DNR status by his family, but they want to continue care and see how he progresses over the weekend. On evaluating him , propofol is running, but as I entered the room and make noise, he opens his eyes. With enough stim ulus, he looks around the room and sees and has a face of recognition when he sees me. He is semi-pu rposeful with the right upper extremity, left lower extremity, seems to localize. If I yell loud lorie ugh, he may even squeeze my hand on the right. Left is weaker. He withdraws both lower extremities quite briskly. We will continue to care for Mr. Martinez as long as his family wants to be aggressive with their care. If he makes significant improvement, the nurse tells me that his family will want to consider trach and PEG.
--- NOTE | 2017-10-01 08:01 | RAD ---
PORTABLE SEMIUPRIGHT FRONTAL CHEST RADIOGRAPH: Date: 10/01/17 COMPARISON: 09/30/17. HISTORY: Ventilated CCU patient. FINDINGS: Stable endotracheal tube and nasogastric tube. Right lung appears clear. Dense opacity persists in th e left base suggesting nonspecific left lower lobe consolidation/collapse and small volume left pleur al effusion. IMPRESSION: No significant interval change. POS: [facility]
[2017-10-01] MEDS: Pantoprazole 40 MG GRANULES PACKET PER TUBE SCH (08:17)
[2017-10-01 08:35] LABS: pH, Arterial 7.52 (7.35-7.45)
[2017-10-01 08:36] LABS: Actual Bicarbonate (HCO3a) 20.9 mEq/L (22-26); Base Excess (BEa) -1.1 mEq/L (0 (+/-) 2.5); CO2 Tension 26.4 mmHg (35.0-45.0); Calcium, Ionized 1.2 mmol/L (1.12-1.30); Hematocrit-ABG 30.8 % (42.0-52.0); Hemoglobin (Hb) 10.5 g/dL (14.0-18.0); O2 Tension (PaO2) 58.3 mmHg (80.0-100.0); Puncture Site RRA
--- NOTE | 2017-10-01 09:29 | PRG ---
DATE OF SERVICE: 10/01/2017 Thirty-five minutes critical care time. SUBJECTIVE: The patient remains intubated on mechanical ventilation. I cannot get him to wake up. He will squeeze with his right hand. He will move his lower extremities, but does not follow any [facility] mands specifically for me otherwise. OBJECTIVE: VITAL SIGNS: On exam, his temperature is 98.4 with a T-max of 102.9 last night, pulse is 86, blood p ressure 101/67. A 24-hour intake 1665, output 2736. HEENT: Pupils are reactive. Sclera anicteric. Oropharynx clear. LUNGS: Remarkable for coarse rhonchi. CARDIOVASCULAR: S1, S2 tachycardic. ABDOMEN: Soft, nontender. EXTREMITIES: No edema. LABORATORY DATA: White blood cell count 14.1, hemoglobin 12, hematocrit 38.4, platelet count 193. p H 7.52, pCO2 of 26, pO2 of 58 on SIMV rate 8, tidal volume 550, PEEP 5, pressure support 10, FiO2 45% . Sodium 141, potassium 3.8, chloride 112, CO2 22, BUN 30, creatinine 0.8, glucose 109. Chest x-ray shows actually fairly clear lung adorno except for a small left pleural effusion. Microbiology data demonstrate no growth to date. ASSESSMENT: 1. Acute respiratory failure, requiring mechanical ventilation. 2. Subarachnoid hemorrhage. 3. Waxing and waning neurologic status. 4. Aspiration pneumonitis. 5. Fever. PLAN: From a pulmonary standpoint, the patient is still too hypoxic and tachypneic to consider extub ation. His mental status is marginal and I am fearful that his recovery may have plateaued. I would advocate continuing mechanical ventilation through the weekend and perhaps meeting with the family e jesus next week to discuss goals of care. I am fearful that his fever is probably due to the effects of the subarachnoid hemorrhage as he is on broad spectrum IV antibiotics and is still spiking tempera tures. The patient is continuing enteral tube feeds.
[2017-10-01] MEDS: Scopolamine 1.5 mg/72 hour Patch TOP SCH (12:37)
[2017-10-01] MEDS: Propofol 1,000 MG/100 ML VIAL IV PRN (15:13)
[2017-10-02] MEDS: Fosphenytoin Sodium 100 MG in Sodium Chloride 0.9% 100 ML IVPB SCH ×3 (00:02→17:26)
[2017-10-02] MEDS: niMODipine 30 MG CAP PO SCH ×6 (00:03→21:46)
[2017-10-02] MEDS: Piperacillin/Tazobactam 3.375 GM in Sodium Chloride 0.9% 100 ML IVPB SCH ×4 (02:01→21:46)
[2017-10-02 04:03] LABS: #Basophils 0.1 thou/uL (0.0-0.2); #Eosinphils 0.4 thou/uL (0.0-0.7); #Lymphocytes 2.1 thou/uL (1.20-3.40); #Monocytes 1.7 thou/uL (0.11-0.59); #Neutrophils 9.3 thou/uL (1.40-6.50); %Basophils 0.9 % (0.0-1.0); %Eosinophils 2.6 % (0.0-10.0); %Lymphocytes 15.3 % (21.0-51.0); %Monocytes 12.6 % (0.0-10.0); %Neutrophils 68.6 % (42.0-75.0); Hemoglobin 11.7 g/dL (14.0-18.0); Mean Corpuscular HGB CONC 32.7 g/dL (32.0-36.0); Mean Corpuscular Hemoglobin 32.1 pg (27.0-31.0); Mean Corpuscular Volume 98.1 fl (80.0-94.0); Mean Platelet Volume 8.4 fL (7.4-10.4); Platelet Count 300 thou/uL (130-400); RBC Distribution Width 13.5 % (11.5-14.5); Red Blood Cell (RBC) Count 3.63 mill/uL (4.70-6.10); White Blood Cell (WBC) Count 13.5 thou/uL (4.8-10.8)
[2017-10-02 04:22] LABS: Anion Gap 10 mmol/L (10-20); BUN (Urea Nitrogen) 28 mg/dL (8.4-25.7); Calc. Creatinine Clearance 97 mL/min (70-130); Calcium 8.8 mg/dL (7.8-10.44); Carbon Dioxide 23 mmol/L (22-29); Chloride 113 mmol/L (98-107); Estimated GFR-MDRD Greater than 90; Glucose 115 mg/dL (70-105); Potassium 3.6 mmol/L (3.5-5.1); Sodium 142 mmol/L (136-145)
[2017-10-02 06:47] LABS: pH, Arterial 7.51 (7.35-7.45)
[2017-10-02 06:48] LABS: Actual Bicarbonate (HCO3a) 20.5 mEq/L (22-26); Base Excess (BEa) -1.4 mEq/L (0 (+/-) 2.5); CO2 Tension 26.4 mmHg (35.0-45.0); Calcium, Ionized 1.3 mmol/L (1.12-1.30); Hematocrit-ABG 33.7 % (42.0-52.0); Hemoglobin (Hb) 11.3 g/dL (14.0-18.0); O2 Tension (PaO2) 71.2 mmHg (80.0-100.0); Puncture Site RRA
--- NOTE | 2017-10-02 07:37 | PRG ---
DATE OF SERVICE: 10/02/2017 This is a 35 minutes critical care time. SUBJECTIVE: The patient awakens. He will move his left lower extremity. I cannot get him to follow commands anywhere else. PHYSICAL EXAMINATION: VITAL SIGNS: His temperature is 98.9 with no fever over the last 24 hours, pulse 81, blood pressure 121/83, O2 saturation 99%. Total intake for 24 hours is 1990, output 1600. HEENT: Pupils react. Sclerae anicteric. Oropharynx clear. NECK: No JVD. CHEST: Clear without wheezing or rhonchi. CARDIAC: S1 and S2 regular. ABDOMEN: Soft. EXTREMITIES: No edema. LABORATORY DATA: White blood cell count 13.5, hemoglobin 11.7, hematocrit 35.6, platelet count 300. ABG, pH 7.51, pCO2 of 26, pO2 71 on SIMV rate 8, tidal volume 550, PEEP 5, pressure support 10, FIO2 45%. Sodium 142, potassium 3.6, chloride 113, CO2 23, BUN 20, creatinine 0.8, glucose 115. X-RAY FINDINGS: His chest x-ray shows no acute changes. ASSESSMENT: 1. Status post subarachnoid hemorrhage. 2. Acute respiratory failure requiring mechanical ventilation. 3. Very borderline neurologic status in terms of extubation. 4. Aspiration pneumonitis. 5. Improved fever. PLAN: 1. Turn the ventilator rate down. 2. Hopefully, the family will be around today, so I can discuss with them the plans for extubation. My bias would be to go ahead and put a tracheostomy as I think he is going to get better with contin ued time, although I cannot guarantee outcome. I have reviewed his medication list today. I did not see any changes that need to be made specifically in that regard. We are continuing the broad spect rum IV antibiotics with the exception of the Levaquin, which is going to be stopped.
[2017-10-02] MEDS: Pantoprazole 40 MG GRANULES PACKET PER TUBE SCH (09:25)
--- NOTE | 2017-10-02 09:41 | RAD ---
PORTABLE SEMIUPRIGHT FRONTAL CHEST RADIOGRAPH: Date: 10/02/17 COMPARISON: 10/01/17. HISTORY: Ventilated CCU patient. FINDINGS: Stable endotracheal tube and nasogastric tube. Increased linear interstitial density noted bilaterall y. Hazy increased density seen in medial right lung base, which may signify volume loss or mild infil trate. There is dense opacity in the left base with partial obscuration of the left hemidiaphragm and left h eart border with blunting of the left costophrenic angle suggesting nonspecific left lower lobe conso lidation/collapse and left pleural fluid, stable. Old, obliquely oriented, distal left clavicle fract ure. IMPRESSION: No significant interval change. POS: [facility]
--- NOTE | 2017-10-02 09:46 | PRG ---
DATE OF SERVICE: 10/02/2017 Mr. Martinez was seen in the ICU this morning. He is more alert to me than it was yesterday. His eyes are already open as I walked in the room. He is attempting to look around the room. He is quite pur poseful with 3-4 extremities. The left arm moves a little bit less than the right. With noxious sti mulus, there is withdrawal of the left hand. Occasionally, he will follow commands and squeeze his h and. I did not get him to wiggle his toes to command, but his legs are moving purposefully. I believe Mr. Martinez is improved from my examination yesterday. We will continue to treat him aggress ively in hopes of further recovery. I do not anticipate any neurosurgical intervention.
[2017-10-02] MEDS: Propofol 1,000 MG/100 ML VIAL IV PRN (21:46)
[2017-10-03] MEDS: niMODipine 30 MG CAP PO SCH ×6 (01:16→21:30)
[2017-10-03] MEDS: Fosphenytoin Sodium 100 MG in Sodium Chloride 0.9% 100 ML IVPB SCH ×3 (01:19→19:01)
[2017-10-03] MEDS: Piperacillin/Tazobactam 3.375 GM in Sodium Chloride 0.9% 100 ML IVPB SCH ×4 (03:02→22:25)
[2017-10-03 04:56] LABS: #Basophils 0.1 thou/uL (0.0-0.2); #Eosinphils 0.3 thou/uL (0.0-0.7); #Lymphocytes 2.1 thou/uL (1.20-3.40); #Monocytes 1.4 thou/uL (0.11-0.59); #Neutrophils 9.3 thou/uL (1.40-6.50); %Basophils 0.8 % (0.0-1.0); %Eosinophils 2.1 % (0.0-10.0); %Lymphocytes 15.8 % (21.0-51.0); %Monocytes 10.8 % (0.0-10.0); %Neutrophils 70.6 % (42.0-75.0); Hemoglobin 11.6 g/dL (14.0-18.0); Mean Corpuscular HGB CONC 32.8 g/dL (32.0-36.0); Mean Corpuscular Hemoglobin 32.4 pg (27.0-31.0); Mean Corpuscular Volume 98.9 fl (80.0-94.0); Mean Platelet Volume 8.6 fL (7.4-10.4); Platelet Count 303 thou/uL (130-400); RBC Distribution Width 13.5 % (11.5-14.5); Red Blood Cell (RBC) Count 3.59 mill/uL (4.70-6.10); White Blood Cell (WBC) Count 13.2 thou/uL (4.8-10.8)
[2017-10-03 05:02] LABS: Anion Gap 10 mmol/L (10-20); BUN (Urea Nitrogen) 27 mg/dL (8.4-25.7); Calc. Creatinine Clearance 0 mL/min (70-130); Calcium 8.5 mg/dL (7.8-10.44); Carbon Dioxide 22 mmol/L (22-29); Chloride 113 mmol/L (98-107); Estimated GFR-MDRD Greater than 90; Glucose 119 mg/dL (70-105); Potassium 3.6 mmol/L (3.5-5.1); Sodium 141 mmol/L (136-145)
[2017-10-03] MEDS: Propofol 1,000 MG/100 ML VIAL IV PRN ×2 (05:22→21:15)
--- NOTE | 2017-10-03 08:23 | PRG ---
DATE OF SERVICE: 10/03/2017 Thirty-five minutes critical care time. The patient remains intubated on mechanical ventilation. He will look around. He is not moving to [facility] for me today. PHYSICAL EXAMINATION: VITAL SIGNS: On exam his temperature is 98.6 with no fever overnight, pulse 78, blood pressure 115/7 8. 24 hour intake 1860, output 1100. HEENT: Pupils reactive, sclerae icteric. Oropharynx, endotracheal tube in place. NECK: No JVD. LUNGS: Coarse breath sounds. CARDIAC: S1 and S2 regular. ABDOMEN: Soft, slightly distended and tympanic. EXTREMITIES: Trace edema throughout. LABORATORY DATA: White blood cell count 13.2, hematocrit 35.5, platelet count 303. ABG is pending. Sodium 141, potassium 3.6, chloride 113, CO2 22, BUN 27, creatinine 0.8, glucose 119. ASSESSMENT: 1. Subarachnoid hemorrhage. 2. Encephalopathy. 3. Very slow recovery of neurologic status. 4. Aspiration pneumonitis. 5. Acute respiratory failure requiring mechanical ventilation. PLAN: I do not think this patient will do well without a tracheostomy. The family is supposed to co me up today and I think have a meeting with Palliative Care. My personal preference would be to put a tracheostomy in and give him time to see if he improves. The tracheostomy could always be taken ou t later. At the same time of putting a tracheostomy, I would probably put a feeding tube in. There are some obvious issues. If those interventions are to be undertaken as the patient has no insurance and further care will have to take place at this facility.
[2017-10-03] MEDS: Pantoprazole 40 MG GRANULES PACKET PER TUBE SCH (08:26)
[2017-10-03] MEDS: Acetaminophen 650 MG/20.3 ML UDCUP PER TUBE PRN (14:42)
[2017-10-04] MEDS: niMODipine 30 MG CAP PO SCH ×6 (01:29→21:35)
[2017-10-04] MEDS: Fosphenytoin Sodium 100 MG in Sodium Chloride 0.9% 100 ML IVPB SCH ×3 (01:29→17:33)
[2017-10-04] MEDS: Piperacillin/Tazobactam 3.375 GM in Sodium Chloride 0.9% 100 ML IVPB SCH ×4 (03:07→21:35)
[2017-10-04 05:37] LABS: #Basophils 0.1 thou/uL (0.0-0.2); #Eosinphils 0.4 thou/uL (0.0-0.7); #Lymphocytes 2.5 thou/uL (1.20-3.40); #Monocytes 1.5 thou/uL (0.11-0.59); #Neutrophils 7.6 thou/uL (1.40-6.50); %Basophils 0.6 % (0.0-1.0); %Eosinophils 3.2 % (0.0-10.0); %Lymphocytes 20.6 % (21.0-51.0); %Monocytes 12.5 % (0.0-10.0); %Neutrophils 63.2 % (42.0-75.0); Hemoglobin 12.1 g/dL (14.0-18.0); Mean Corpuscular HGB CONC 32.9 g/dL (32.0-36.0); Mean Corpuscular Hemoglobin 32.3 pg (27.0-31.0); Mean Corpuscular Volume 98.3 fl (80.0-94.0); Mean Platelet Volume 8.2 fL (7.4-10.4); Platelet Count 305 thou/uL (130-400); RBC Distribution Width 13.2 % (11.5-14.5); Red Blood Cell (RBC) Count 3.74 mill/uL (4.70-6.10); White Blood Cell (WBC) Count 12.1 thou/uL (4.8-10.8)
[2017-10-04 05:43] LABS: Anion Gap 10 mmol/L (10-20); BUN (Urea Nitrogen) 29 mg/dL (8.4-25.7); Calc. Creatinine Clearance 99 mL/min (70-130); Calcium 8.5 mg/dL (7.8-10.44); Carbon Dioxide 22 mmol/L (22-29); Chloride 112 mmol/L (98-107); Estimated GFR-MDRD Greater than 90; Glucose 100 mg/dL (70-105); Potassium 4.1 mmol/L (3.5-5.1); Sodium 140 mmol/L (136-145)
[2017-10-04] MEDS: Propofol 1,000 MG/100 ML VIAL IV PRN (06:25)
[2017-10-04] MEDS ORDERED: Lidocaine 1% w/Epinephrine 1:200K 30 ML VIAL FS SCH (08:00)
[2017-10-04] MEDS ORDERED: Fentanyl 100 MCG/2 ML VIAL SLOW IVP SCH ×2 (08:15→10:15)
[2017-10-04] MEDS ORDERED: Midazolam HCl 2 mg/2 ml Vial IVP SCH (08:15)
[2017-10-04] MEDS ORDERED: Vecuronium 10 MG VIAL IV SCH (08:15)
--- NOTE | 2017-10-04 08:17 | PRG ---
DATE OF SERVICE: 10/04/2017 Mr. Martinez is now on the 14th day of his hospital stay. He continues to be roughly stable neurologica lly with minimal improvement from last week where he opens his eyes when talked to, transiently follo ws commands by squeezing my hand or wiggling his toes. The concern going forward is that of transiti on of care. I believe the family has another meeting with Palliative Care at some point this week to discuss options, whether that is tracheostomy versus a PEG tube placement versus move towards hospic e. I understand that Dr. Paez with our Critical Care team has recommended a tracheostomy as it do es not appear that the patient can tolerate coming completely off of the ventilation. I support this recommendation, but will also support the family if they decide to move towards more hospice type ca re moving forward. Will discuss plan with Dr. Moser. Again, neurosurgically there is no surgical in tervention that I would recommend at this time, just aggressive therapy and we will continue to treat based on the family's wishes.
[2017-10-04] MEDS ORDERED: Vecuronium 10 MG VIAL ONE (09:03)
[2017-10-04] MEDS ORDERED: CEFAZOLIN/Water 2 GM/20 ML SYRINGE SLOW IVP SCH (09:15)
--- NOTE | 2017-10-04 09:25 | PRG ---
DATE OF SERVICE: 10/04/2017 [id number]-yrcsom critical care time. SUBJECTIVE: The patient remains intubated on mechanical ventilation. The sedation was held this mor yane. He looks around, does not follow any commands specifically for me. OBJECTIVE: VITAL SIGNS: On exam, his temperature is 100.0 with a T-max of 100.4, pulse 71, blood pressure 138/8 7. HEENT: Unremarkable. NECK: No JVD. LUNGS: Clear with distant breath sounds. CARDIAC: S1 and S2, regular. ABDOMEN: Soft. EXTREMITIES: No edema. LABORATORY DATA: White blood cell count 12.1, hematocrit 36.8, platelet count 305. Sodium 140, pota ssium 4.1, chloride 112, CO2 of 22, BUN 29, creatinine 0.8, glucose 100. ASSESSMENT: 1. Acute respiratory failure, requiring mechanical ventilation. 2. Subarachnoid hemorrhage. 3. Encephalopathy. 4. Aspiration pneumonitis. PLAN: 1. Tracheostomy and feeding tube are planned for today. I spoke with the patient's 2 sisters yester day at the bedside and told them that I thought he had a chance for recovery, but I expect it to take a while. The trachea is mainly to protect the patient's airway and a feeding tube is to obviously g dianna him tube feeds. 2. We have stopped daily blood gases and daily x-rays. Hopefully, we can begin to wean more aggress ively once tracheostomy is in place.
[2017-10-04] MEDS: Pantoprazole 40 MG GRANULES PACKET PER TUBE SCH (10:13)
[2017-10-04] MEDS: Dextrose 5 %-0.45 % NaCl 1,000 ML IV SCH (15:00)
[2017-10-04] MEDS: Scopolamine 1.5 mg/72 hour Patch TOP SCH (15:02)
--- NOTE | 2017-10-04 16:19 | OP ---
DATE OF PROCEDURE: 10/04/2017 PREOPERATIVE DIAGNOSES: 1. Status post acute severe intracerebral hemorrhage. 2. Acute respiratory failure secondary to #1. POSTOPERATIVE DIAGNOSES: 1. Status post acute severe intracerebral hemorrhage. 2. Acute respiratory failure secondary to #1. OPERATIONS PERFORMED: 1. Percutaneous tracheostomy tube placement. 2. Percutaneous endoscopic gastrostomy tube placement. SURGEON: Biju Mcgregor D.O. ANESTHESIA: Deep sedation and local. INDICATIONS FOR OPERATION: A 56-year-old man who suffered a severe intracerebral hemorrhage . The patient has been on full mechanical ventilator support since admission 2 weeks ago. I have been asked to place a percutaneous tracheostomy tube to facilitate ventilatory wean as well as place a percutaneous endoscopic gastrostomy tube for potential prolonged enteral nutritional support . DESCRIPTION OF PROCEDURE: Informed consent obtained from the patient's family. The patient is place d in supine position. He is receiving propofol by continuous infusion. He was given aliquots of fen tanyl to achieve comfort. Following this, patient is given vecuronium 10 mg intravenously. The ante rior neck was then sterilely prepped and draped in usual fashion. The skin 2 fingerbreadths above th e suprasternal notch were anesthetized with 1% lidocaine with epinephrine. A 1 cm vertical incision is made here using 15 scalpel. I then inserted an introducer needle through this incision, advancing this into the distal tracheal lumen through which a guidewire was passed and advanced into the dista l tracheal lumen under direct bronchoscopy. The needle was withdrawn over the guidewire. The anteri or tracheal wall was then sterilely dilated over the guidewire. Finally, a dilator and size 8 trache ostomy tube was advanced as a unit over the guidewire and placed in the distal tracheal lumen. Dilat or introducer catheter as well as guidewire was removed as a unit leaving the tracheostomy tube in pl naseem. The inner cannula was then inserted. The patient was connected to mechanical ventilation via n ewly placed tracheostomy tube. Good tidal volume is returned. The tracheostomy tube is secured to t he anterior neck using old silk suture at 2 points. Trach tie and sterile dressings was applied. Br onchoscope was then withdrawn with the previous endotracheal tube as a unit visualizing the tracheost nicki site from above with good hemostasis. Once the endotracheal tube was removed from the mouth, the bronchoscope was reinserted through the newly placed tracheostomy tube and advanced to visualize the jarrett. The scope was advanced to the right and then left main stem bronchi. The scope was withdra wn, visualizing the tracheostomy site from below. No active bleeding noted. At this juncture, the b ronchoscopy part was terminated. I turned my attention then to the abdomen which was widely sterilel y prepped and draped in usual fashion. Using a different set of instruments, gown and glove in place in place. A mouthguard was put in place through this. The endoscope was passed per oral and advanc ed carefully intubating the esophagus under direct vision. With gentle insufflation, the scope is ad vanced into the gastric lumen. The gastric lumen was insufflated. The scope was then advanced into the proximal duodenum finding no ulcers. The scope was withdrawn back into the gastric lumen. No ga stritis is noted. The left upper quadrant was transilluminated and the area chosen for placement of the PEG tube. The skin was anesthetized with 1% lidocaine. A stab incision is made using an 11 scal pel. An introducer needle was advanced through this incision and then passed into the gastric lumen visualized by endoscopy. A guidewire was then introduced into the gastric lumen through this introdu cer needle and was captured with an endosnare which was then pulled out with the endoscope as a unit per oral. The guidewire was then connected to 20-Mozambican gastrostomy tube. The distal end of the amado dewire was pulled out through the stab incision leaving the mushroom end of the gastrostomy tube embe dded within the gastric lumen and abutting the gastric wall. Position is confirmed again by endoscop y. The gastrostomy tube was then fashioned to length and secured at the abdominal wall level using a bolster. The endoscope was withdrawn after the gastric lumen was desufflated. Normal esophageal mu cosa is visualized as the endoscope is removed. The patient tolerated the operation without any appa rent complication and remains hemodynamically stable following completion of the procedure.
--- NOTE | 2017-10-04 19:53 | PRG ---
DATE OF SERVICE: 10/04/2017 Mr. Martinez is now 2 weeks status post admission for intraventricular and subarachnoid hemorrhage. He has been relatively stable from a neurological perspective. There are plans to undergo PEG and trach eostomy. We will need to work quickly towards disposition planning.
[2017-10-05] MEDS: niMODipine 30 MG CAP PO SCH ×6 (01:00→20:24)
[2017-10-05] MEDS: Piperacillin/Tazobactam 3.375 GM in Sodium Chloride 0.9% 100 ML IVPB SCH ×4 (03:55→20:25)
[2017-10-05] MEDS: Dextrose 5 %-0.45 % NaCl 1,000 ML IV SCH ×2 (04:00→20:24)
[2017-10-05 05:38] LABS: Anion Gap 7 mmol/L (10-20); BUN (Urea Nitrogen) 26 mg/dL (8.4-25.7); Calc. Creatinine Clearance 113 mL/min (70-130); Carbon Dioxide 23 mmol/L (22-29); Chloride 111 mmol/L (98-107); Estimated GFR-MDRD Greater than 90; Glucose 106 mg/dL (70-105); Potassium 3.3 mmol/L (3.5-5.1); Sodium 138 mmol/L (136-145)
[2017-10-05 05:47] LABS: #Basophils 0.1 thou/uL (0.0-0.2); #Eosinphils 0.3 thou/uL (0.0-0.7); #Lymphocytes 2.1 thou/uL (1.20-3.40); #Monocytes 1.7 thou/uL (0.11-0.59); %Basophils 1.1 % (0.0-1.0); %Eosinophils 2.4 % (0.0-10.0); %Lymphocytes 17.2 % (21.0-51.0); %Monocytes 13.8 % (0.0-10.0); %Neutrophils 65.6 % (42.0-75.0); Hemoglobin 11.7 g/dL (14.0-18.0); Mean Corpuscular HGB CONC 33.1 g/dL (32.0-36.0); Mean Corpuscular Hemoglobin 32.4 pg (27.0-31.0); Mean Corpuscular Volume 97.9 fl (80.0-94.0); Mean Platelet Volume 8.3 fL (7.4-10.4); Platelet Count 303 thou/uL (130-400); RBC Distribution Width 13.2 % (11.5-14.5); Red Blood Cell (RBC) Count 3.62 mill/uL (4.70-6.10); White Blood Cell (WBC) Count 12.3 thou/uL (4.8-10.8)
--- NOTE | 2017-10-05 07:54 | PRG ---
DATE OF SERVICE: 10/05/2017 Thirty-five minutes critical care time. The patient remains on mechanical ventilation through endotracheal a tracheostomy tube. PHYSICAL EXAMINATION: VITAL SIGNS: On exam his temperature is 99.8 with T-max of 100.2, pulse 86, blood pressure 122/80, 2 4 hour intake 1960, output 1675. NEURO: Neurologically, he will open his eyes, he will move all 4 extremities, but will not follow co mmands specifically. HEENT: Unremarkable. NECK: No JVD. Trach in good position. LUNGS: Clear without wheezing or rhonchi. CARDIAC: S1 and S2 regular. ABDOMEN: Soft, nontender. PEG tube noted. EXTREMITIES: No edema. LABORATORY DATA: Sodium 138, potassium 3.3, chloride 111, CO2 23, BUN 26, creatinine 0.7, glucose 10 6, white blood cell count 12.3, hematocrit 35.4, platelet count 303. ASSESSMENT: 1. Acute respiratory failure requiring mechanical ventilation and tracheostomy placement. 2. Subarachnoid hemorrhage. 3. Encephalopathy. 4. Aspiration pneumonitis. PLAN: 1. Stop the propofol. 2. Antibiotics for 1 more day and then stop. 3. In chair twice daily as tolerated. 4. Restart tube feeds later today.
[2017-10-05] MEDS: Fosphenytoin Sodium 100 MG in Sodium Chloride 0.9% 100 ML IVPB SCH ×3 (09:44→17:30)
[2017-10-05] MEDS: Pantoprazole 40 MG GRANULES PACKET PER TUBE SCH (09:45)
--- NOTE | 2017-10-05 10:23 | PRG ---
DATE OF SERVICE: 10/05/2017 SUBJECTIVE: I am seeing Mr. Martinez, a 56-year-old man who is postoperative day #1, status post percu taneous tracheostomy tube and percutaneous endoscopic gastrostomy tube placement. The patient remains on mechanical ventilator support. He is awake and makes eye contact. He has remained hemodynamically stable since yesterday. PHYSICAL EXAMINATION: HEENT: Trach site is intact, clean, and dry. No evidence of hemorrhage. ABDOMEN: Soft, nontender, nondistended. Gastrostomy site is clean and dry. IMPRESSION: Postop day #1, status post percutaneous tracheostomy tube and percutaneous endoscopic ga strostomy tube placement. The patient is hemodynamically stable. It is okay to use the gastrostomy tube for intended purposes including enteral nutritional supplement ation. General Surgery will sign off at this time and be available to reevaluate the patient on demand.
[2017-10-05] MEDS: Lorazepam 2 MG/ML VIAL SLOW IVP PRN ×2 (12:04→21:09)
--- NOTE | 2017-10-05 13:03 | PRG ---
DATE OF SERVICE: 10/05/2017 Mr. Martinez remains in the ICU. He is now status post PEG and trach. He is most alert today. I have seen him in quite some time. He opens his eyes easily to voice. He follows commands at all 4 extrem ities. This is a very encouraging transition for Mr. Martinez. I will defer ultimately to our pulmonar y colleagues as to when it is to wean him from ventilation.
[2017-10-06] MEDS: Labetalol HCl 100 MG/20 ML VIAL SLOW IVP PRN (00:14)
[2017-10-06] MEDS: Fosphenytoin Sodium 100 MG in Sodium Chloride 0.9% 100 ML IVPB SCH ×3 (00:14→16:46)
[2017-10-06] MEDS: niMODipine 30 MG CAP PO SCH ×6 (04:27→21:10)
[2017-10-06] MEDS: Piperacillin/Tazobactam 3.375 GM in Sodium Chloride 0.9% 100 ML IVPB SCH (04:34)
[2017-10-06 04:44] LABS: #Basophils 0.1 thou/uL (0.0-0.2); #Eosinphils 0.3 thou/uL (0.0-0.7); #Lymphocytes 2.4 thou/uL (1.20-3.40); #Monocytes 1.4 thou/uL (0.11-0.59); #Neutrophils 7.9 thou/uL (1.40-6.50); %Basophils 0.8 % (0.0-1.0); %Eosinophils 2.2 % (0.0-10.0); %Lymphocytes 19.9 % (21.0-51.0); %Monocytes 11.7 % (0.0-10.0); %Neutrophils 65.4 % (42.0-75.0); Hemoglobin 11.7 g/dL (14.0-18.0); Mean Corpuscular HGB CONC 33.4 g/dL (32.0-36.0); Mean Corpuscular Hemoglobin 32.8 pg (27.0-31.0); Mean Corpuscular Volume 98.2 fl (80.0-94.0); Mean Platelet Volume 8.4 fL (7.4-10.4); Platelet Count 370 thou/uL (130-400); RBC Distribution Width 13.3 % (11.5-14.5); Red Blood Cell (RBC) Count 3.58 mill/uL (4.70-6.10); White Blood Cell (WBC) Count 12.1 thou/uL (4.8-10.8)
[2017-10-06 05:06] LABS: Anion Gap 8 mmol/L (10-20); BUN (Urea Nitrogen) 22 mg/dL (8.4-25.7); Calc. Creatinine Clearance 113 mL/min (70-130); Calcium 8.2 mg/dL (7.8-10.44); Carbon Dioxide 21 mmol/L (22-29); Chloride 110 mmol/L (98-107); Estimated GFR-MDRD Greater than 90; Glucose 119 mg/dL (70-105); Potassium 3.2 mmol/L (3.5-5.1); Sodium 136 mmol/L (136-145)
[2017-10-06] MEDS: Dextrose 5 %-0.45 % NaCl 1,000 ML IV SCH ×2 (06:53→16:39)
--- NOTE | 2017-10-06 08:05 | PRG ---
DATE OF SERVICE: 10/06/2017 A 35 minutes critical care time SUBJECTIVE: Mr. Martinez is awake and alert, will not follow any commands specifically, but has intermi ttently been following commands for nursing staff. PHYSICAL EXAMINATION: VITAL SIGNS: Temperature is 100.6, pulse 78, blood pressure 125/71. A 24-hour intake 2780, output 1 550. HEENT: Unremarkable. NECK: Without adenopathy or JVD. Trach in good position. LUNGS: Clear. CARDIOVASCULAR: S1, S2 regular. ABDOMEN: Soft, nontender. EXTREMITIES: No clubbing, cyanosis, edema. LABORATORY DATA: White blood cell count 12.1, hematocrit 35.1, platelet count 370. Sodium 136, pota ssium 3.2, chloride 110, CO2 21, BUN 22, creatinine 0.7, glucose 119. ASSESSMENT: 1. Acute respiratory failure requiring mechanical ventilation and tracheostomy. 2. Subarachnoid hemorrhage. 3. Encephalopathy. 4. Aspiration pneumonitis. PLAN: 1. Antibiotics are being stopped today. 2. Up in chair as tolerated. 3. Trach collar trials as tolerated. 4. Need to begin working on placement if at all possible.
--- NOTE | 2017-10-06 08:37 | PRG ---
DATE OF SERVICE: 10/06/2017 I am seeing Mr. Martinez today at bedside. He is awake and alert. He is status post tracheostomy and g astrostomy placement with Dr. Mcgregor. It looks to me that he is essentially breathing on his own with only scant ventilator breaths while watching the monitor. He is awake. He is watching television. He tracks me in the room with his eyes. He follows commands in all 4 extremities. I will continue to monitor.
[2017-10-06] MEDS: Lorazepam 2 MG/ML VIAL SLOW IVP PRN ×4 (09:00→21:07)
[2017-10-06] MEDS: Pantoprazole 40 MG GRANULES PACKET PER TUBE SCH ×2 (10:30→10:31)
[2017-10-07] MEDS: Fosphenytoin Sodium 100 MG in Sodium Chloride 0.9% 100 ML IVPB SCH ×3 (00:44→16:48)
[2017-10-07] MEDS: niMODipine 30 MG CAP PO SCH ×6 (00:45→21:05)
[2017-10-07] MEDS: Lorazepam 2 MG/ML VIAL SLOW IVP PRN ×2 (04:26→15:05)
[2017-10-07] MEDS: Dextrose 5 %-0.45 % NaCl 1,000 ML IV SCH (04:57)
[2017-10-07 05:09] LABS: #Basophils 0.1 thou/uL (0.0-0.2); #Eosinphils 0.3 thou/uL (0.0-0.7); #Lymphocytes 1.9 thou/uL (1.20-3.40); #Monocytes 1.4 thou/uL (0.11-0.59); #Neutrophils 7.3 thou/uL (1.40-6.50); %Basophils 0.8 % (0.0-1.0); %Eosinophils 2.5 % (0.0-10.0); %Lymphocytes 17.2 % (21.0-51.0); %Monocytes 12.5 % (0.0-10.0); %Neutrophils 67.1 % (42.0-75.0); Hemoglobin 11.9 g/dL (14.0-18.0); Mean Corpuscular HGB CONC 32.4 g/dL (32.0-36.0); Mean Corpuscular Hemoglobin 31.7 pg (27.0-31.0); Mean Corpuscular Volume 97.9 fl (80.0-94.0); Mean Platelet Volume 7.8 fL (7.4-10.4); Platelet Count 331 thou/uL (130-400); RBC Distribution Width 13.2 % (11.5-14.5); Red Blood Cell (RBC) Count 3.74 mill/uL (4.70-6.10); White Blood Cell (WBC) Count 10.8 thou/uL (4.8-10.8)
[2017-10-07 05:32] LABS: Anion Gap 9 mmol/L (10-20); BUN (Urea Nitrogen) 16 mg/dL (8.4-25.7); Calc. Creatinine Clearance 0 mL/min (70-130); Carbon Dioxide 22 mmol/L (22-29); Chloride 106 mmol/L (98-107); Estimated GFR-MDRD Greater than 90; Glucose 115 mg/dL (70-105); Potassium 3.3 mmol/L (3.5-5.1); Sodium 134 mmol/L (136-145)
--- NOTE | 2017-10-07 08:23 | PRG ---
DATE OF SERVICE: 10/07/2017 Thirty-five minutes critical care time. SUBJECTIVE: He is up in a chair on trach collar today. He has been combative with the nurses at [facility]. OBJECTIVE: VITAL SIGNS: On exam, his temperature is 101.1, pulse 69, blood pressure 94/54. A 24-hour intake 31 10 and output 1980. HEENT EXAM: Remarkable for poor dentition. NECK: Trach in good position. Lots of secretions. CARDIAC: S1 and S2, regular. LUNGS: Coarse rhonchi. ABDOMEN: Soft. EXTREMITIES: No clubbing, cyanosis, or edema. LABORATORY DATA: Sodium 134, potassium 3.3, chloride 106, CO2 of 22, BUN 16, creatinine 0.6, glucose 115. White blood cell count of 10.8, hematocrit 36.6, platelet count of 331. ASSESSMENT: 1. Acute respiratory failure, requiring mechanical ventilation and now tracheostomy mainly for airwa y management issues. 2. Subarachnoid hemorrhage. 3. Encephalopathy. 4. Aspiration pneumonitis. 5. Continue low-grade fever. PLAN: 1. I will recheck cultures, as antibiotics were stopped yesterday. 2. Continue trach collar trials. 3. Add Blaynedon to see if this will help with his behavior issues. 4. Stop IV fluids. 5. Begin to work on placement.
[2017-10-07] MEDS ORDERED: Ziprasidone 20 MG CAP PER TUBE SCH (09:00)
--- NOTE | 2017-10-07 13:31 | ULT ---
ULTRASOUND WITH DOPPLER DUPLEX VENOUS LOWER EXTREMITIES BILATERAL: DATE: 10-07-17 HISTORY: 56-year-old male with bilateral lower extremity edema. TECHNIQUE: Color flow Doppler, spectral waveform analysis of pulsed Doppler, and montero-scale imaging with marlon radha and augmentation, were used to evaluate the bilateral common femoral, femoral, popliteal, revival clerk ior tibial, and superficial femoral, veins; and the proximal portions of the profunda femoral and gre ater saphenous, veins. FINDINGS: There is normal compressibility, demonstration of blood flow by color Doppler and pulsed Doppler, and response to augmentation, in all interrogated veins. IMPRESSION: Negative. No deep vein thrombosis in the bilateral lower extremities. veronica POS: [facility]
[2017-10-07] MEDS ORDERED: clonazePAM 1 MG TAB PER TUBE SCH ×2 (16:15→21:00)
[2017-10-07 16:19] LABS: CO2 Tension 22.5 mmHg (35.0-45.0); pH, Arterial 7.52 (7.35-7.45)
[2017-10-07 16:20] LABS: Actual Bicarbonate (HCO3a) 17.7 mEq/L (22-26); Base Excess (BEa) -3.5 mEq/L (0 (+/-) 2.5); Calcium, Ionized 1.2 mmol/L (1.12-1.30); Hematocrit-ABG 39.5 % (42.0-52.0); Hemoglobin (Hb) 12.1 g/dL (14.0-18.0); O2 Tension (PaO2) 50.5 mmHg (80.0-100.0)
[2017-10-07 16:21] LABS: ALV-art Gradient 135.275 (0-20)
--- NOTE | 2017-10-07 17:32 | RAD ---
PORTABLE AP CHEST X-RAY 10/07/17 HISTORY: Hypoxia. COMPARISON: 10/02/17. FINDINGS: Tracheostomy device is now noted in place with tip overlying the C7 vertebral body. The cardiac silho uette and bronchovascular markings are accentuated by shallow depth of inspiration. There is increase d density at the left lung base with blunting of the left lateral costophrenic angle probably related to left pleural effusion and atelectasis. Superimposed infiltrate left lung base is not entirely exc luded. The right lung is clear. IMPRESSION: Dense opacity at the left lung base with obscuration of the left hemidiaphragm. Findings again may be related to left pleural effusion and atelectasis. However, consolidation related to pneumonia in the retrocardiac region is not entirely excluded. Similar finding was present on the prior exam, althoug h less apparent as this exam was obtained in upright positioning. No other interval change. POS: [facility]
[2017-10-07] MEDS: Acetaminophen 650 MG/20.3 ML UDCUP PER TUBE PRN (21:06)
[2017-10-08] MEDS: Fosphenytoin Sodium 100 MG in Sodium Chloride 0.9% 100 ML IVPB SCH ×3 (02:04→16:37)
[2017-10-08] MEDS: niMODipine 30 MG CAP PO SCH ×6 (02:05→20:04)
[2017-10-08 04:36] LABS: #Basophils 0.1 thou/uL (0.0-0.2); #Eosinphils 0.2 thou/uL (0.0-0.7); #Lymphocytes 2.3 thou/uL (1.20-3.40); #Monocytes 1.6 thou/uL (0.11-0.59); #Neutrophils 10.1 thou/uL (1.40-6.50); %Basophils 0.4 % (0.0-1.0); %Eosinophils 1.6 % (0.0-10.0); %Lymphocytes 16.3 % (21.0-51.0); %Neutrophils 70.7 % (42.0-75.0); Hemoglobin 11.4 g/dL (14.0-18.0); Mean Corpuscular HGB CONC 33.5 g/dL (32.0-36.0); Mean Corpuscular Hemoglobin 32.9 pg (27.0-31.0); Mean Corpuscular Volume 98.1 fl (80.0-94.0); Mean Platelet Volume 8.3 fL (7.4-10.4); Platelet Count 383 thou/uL (130-400); RBC Distribution Width 13.1 % (11.5-14.5); Red Blood Cell (RBC) Count 3.46 mill/uL (4.70-6.10); White Blood Cell (WBC) Count 14.3 thou/uL (4.8-10.8)
[2017-10-08 05:03] LABS: Anion Gap 11 mmol/L (10-20); BUN (Urea Nitrogen) 22 mg/dL (8.4-25.7); Calc. Creatinine Clearance 0 mL/min (70-130); Calcium 8.2 mg/dL (7.8-10.44); Carbon Dioxide 21 mmol/L (22-29); Chloride 105 mmol/L (98-107); Estimated GFR-MDRD Greater than 90; Glucose 129 mg/dL (70-105); Potassium 3.6 mmol/L (3.5-5.1); Sodium 133 mmol/L (136-145)
[2017-10-08] MEDS ORDERED: clonazePAM 1 MG TAB PER TUBE SCH (07:15)
--- NOTE | 2017-10-08 07:18 | PRG ---
DATE OF SERVICE: 10/08/2017 SERVICE: Pulmonary Medicine. INTERVAL HISTORY: The patient is having a couple of episodes of hypoxemic respiratory failure resulting in tachypnea. That being said, it will settle back down after each one. He ended up getting a chest x-ray yesterday. He really was not that remarkable except for a little low lung volumes and atelectasis. He has abdominal distention. This is likely contributing to his respiratory difficulties. PHYSICAL EXAMINATION: VITAL SIGNS: Afebrile with a T-max overnight of 101.1, pulse 80, blood pressure 113/71, respirations 21, saturation 97% on 40% FIO2 and a PEEP of 10. HEENT: Normocephalic, atraumatic. Sclerae are white, conjunctivae pink. Oral and nasal mucosa is moist without lesions. LUNGS: Decent air entry. There is a slightly prolonged expiratory phase. Rhonchi are present. No crackles. HEART: Normal rate, regular. ABDOMEN: Distended. Bowel sounds are actually active. There is no rebound or guarding identified. He has tympani with percussion. MUSCULOSKELETAL: No cyanosis or clubbing. A 1+ pitting in the bilateral lower extremities appears to be much improved. GENITOURINARY: Weber catheter in place. LABORATORY DATA: WBC 14.3, hemoglobin 11.4, platelets 383,000. PH 7.52, pCO2 22, pO2 55.5 yesterday during one of his respiratory events. Sodium 133, potassium 3.6. Basic metabolic profile is otherwise unremarkable. Urinalysis is unremarkable. Urine drug screen is negative. C. diff antigen and toxin was previously negative. Blood cultures x2 and urine culture remain negative to date. IMAGIN. Ultrasound of the bilateral lower extremities demonstrates no evidence of DVT. 2. Chest x-ray demonstrates left lower lobe infiltrate versus atelectasis is quite dense. Pneumonia cannot be excluded. There does not appear to be any significant effusions. Low lung volumes accentuate interstitial markings. Tracheostomy tube is identified high. ASSESSMENT: 1. Acute hypoxic respiratory failure. 2. Subarachnoid hemorrhage. 3. Metabolic encephalopathy. 4. Atelectasis verses HCAP. PLAN: I will back off on the Klonopin and the Seroquel. I will schedule some simethicone. I have reports that he is tolerating tube feeds, and is passing gas. His last bowel movement was yesterday. If he has increasing abdominal difficulties, we may need to consider imaging his belly. Pulmonary and Critical Care will continue to follow along. Potassium will be replaced. I will check magnesium and phosphorus in the morning. CRITICAL CARE TIME: 30 minutes. OZZY
[2017-10-08] MEDS: Simethicone Chewable 80 MG TAB PO SCH ×3 (08:28→20:02)
[2017-10-08] MEDS: Pantoprazole 40 MG GRANULES PACKET PER TUBE SCH (08:28)
[2017-10-08] MEDS: Polyethylene Glycol 3350 17 GM Packet PER TUBE SCH (08:28)
[2017-10-08] MEDS: Senokot S 8.6-50 MG TAB PO SCH ×2 (08:28→20:02)
--- NOTE | 2017-10-08 13:08 | PRG ---
DATE OF SERVICE: 10/08/2017 Mr. Martinez is hospital day 18, following angio, negative subarachnoid hemorrhage. This resulted in a dense thick intraventricular clot that failed external ventricular drain placement multiple times and as such, the patient was taken for hematoma evacuation or fenestration of the septum and placement o f a new external ventricular drain. The patient has made some neurological recovery and that he open s his eyes and does attempt to follow commands, although this is not continuous. I removed the stapl es in the right-sided craniotomy wound and also on the left-sided external ventricular drain wound. He is sitting in a bedside chair and likely will be in the ICU through the weekend. The plan as charlee ld continue to demonstrate neurological progress and Dr. Moser will consider a repeat angiogram next week sometime.
[2017-10-08] MEDS ORDERED: Furosemide 20 MG/2 ML VIAL SLOW IVP SCH (16:30)
[2017-10-08] MEDS: Acetaminophen 650 MG/20.3 ML UDCUP PER TUBE PRN (17:11)
[2017-10-08] MEDS: clonazePAM 1 MG TAB PER TUBE SCH (20:02)
[2017-10-09] MEDS: niMODipine 30 MG CAP PO SCH ×6 (02:19→21:00)
[2017-10-09] MEDS: Fosphenytoin Sodium 100 MG in Sodium Chloride 0.9% 100 ML IVPB SCH ×3 (02:20→17:27)
[2017-10-09 05:01] LABS: #Basophils 0.1 thou/uL (0.0-0.2); #Eosinphils 0.2 thou/uL (0.0-0.7); #Lymphocytes 2.3 thou/uL (1.20-3.40); #Monocytes 1.9 thou/uL (0.11-0.59); #Neutrophils 9.9 thou/uL (1.40-6.50); %Basophils 0.4 % (0.0-1.0); %Eosinophils 1.5 % (0.0-10.0); %Lymphocytes 15.9 % (21.0-51.0); %Monocytes 13.3 % (0.0-10.0); %Neutrophils 68.8 % (42.0-75.0); Hemoglobin 11.3 g/dL (14.0-18.0); Mean Corpuscular Hemoglobin 32.7 pg (27.0-31.0); Mean Corpuscular Volume 96.4 fl (80.0-94.0); Mean Platelet Volume 7.9 fL (7.4-10.4); Platelet Count 387 thou/uL (130-400); RBC Distribution Width 13.1 % (11.5-14.5); Red Blood Cell (RBC) Count 3.44 mill/uL (4.70-6.10); White Blood Cell (WBC) Count 14.4 thou/uL (4.8-10.8)
[2017-10-09 05:10] LABS: Anion Gap 10 mmol/L (10-20); BUN (Urea Nitrogen) 21 mg/dL (8.4-25.7); Calc. Creatinine Clearance 118 mL/min (70-130); Calcium 8.3 mg/dL (7.8-10.44); Carbon Dioxide 21 mmol/L (22-29); Chloride 104 mmol/L (98-107); Estimated GFR-MDRD Greater than 90; Glucose 119 mg/dL (70-105); Potassium 3.4 mmol/L (3.5-5.1); Sodium 132 mmol/L (136-145)
[2017-10-09] MEDS: Senokot S 8.6-50 MG TAB PO SCH (07:52)
[2017-10-09] MEDS: Pantoprazole 40 MG GRANULES PACKET PER TUBE SCH (08:33)
[2017-10-09] MEDS: clonazePAM 1 MG TAB PER TUBE SCH ×2 (08:33→20:53)
[2017-10-09] MEDS: Simethicone Chewable 80 MG TAB PO SCH ×3 (09:11→20:53)
[2017-10-09] MEDS ORDERED: Potassium Chloride 40 MEQ in Sodium Chloride 0.9% 250 ML 250 ML IVPB SCH (11:00)
[2017-10-09 13:13] LABS: Bilirubin Negative (Negative); Blood, Urine Negative (Negative); Clarity CLEAR (Clear); Glucose, Urine (Dipstick) Negative (Negative); Leukocyte Small (Negative); Nitrite Negative (Negative); Protein, Urine (Dipstick) Trace mg/dL (Neg-Trace); Specific Gravity, Urine 1.025 (1.002-1.036)
[2017-10-09] MEDS: Piperacillin/Tazobactam 3.375 GM in Sodium Chloride 0.9% 100 ML IVPB SCH ×2 (13:13→17:34)
[2017-10-09 13:17] LABS: Bacteria/HPF None Seen HPF (None Seen); Hyaline Casts/LPF 0-3 HYALINE CAST LPF (0-3 Hyaline); Pathc Cast-AUWi Flag 0.29 (0-2.49); RBC/HPF 0-3 HPF (0-3); Squamous Epithelial None Seen HPF (0-3); WBC/HPF 0-3 HPF (0-3)
[2017-10-09 13:27] LABS: Crystals/HPF 2+ CA OXALATE HPF (Negative)
[2017-10-09] MEDS ORDERED: Lidocaine 1% (PF) 30 ML VIAL ONE ×2 (13:51→13:52)
[2017-10-09] MEDS ORDERED: Lidocaine 1% w/Epinephrine 1:200K 30 ML VIAL ONE (13:52)
--- NOTE | 2017-10-09 15:21 | CT ---
CT ABDOMEN AND PELVIS WITH IV AND ENTERIC CONTRAST: Date: 10-09-17 Provided Clinical History: Fever. FINDINGS: The examination is limited due to patient motion. There is bibasilar atelectatic change and small karolina ateral pleural effusions. The solid abdominal organs demonstrate a grossly unremarkable CT appearance. There is moderate ascite s. There are multiple moderately thickened loops of jejunum in the left upper quadrant. There is no b owel dilatation, definite inflammatory fat stranding (with limitations due to fluid and motion). Perc utaneous gastrostomy tube is noted with the tip apparently within the distal gastric body. Weber catheter is noted, decompressing the urinary bladder. The osseous structures demonstrate no concerning lytic or blastic lesions. IMPRESSION: 1. Moderate ascites. 2. Bilateral pleural effusions with adjacent atelectasis/infiltrate. 3. Apparent jejunal wall thickening involving the left upper quadrant may reflect changes of enteriti s. POS: [facility]
[2017-10-09] MEDS ORDERED: ISOVUE-370 76%-LOCM 1 ML ONE (15:31)
[2017-10-10] MEDS: Piperacillin/Tazobactam 3.375 GM in Sodium Chloride 0.9% 100 ML IVPB SCH ×5 (00:08→23:43)
[2017-10-10] MEDS: Fosphenytoin Sodium 100 MG in Sodium Chloride 0.9% 100 ML IVPB SCH ×3 (00:42→16:58)
[2017-10-10] MEDS: niMODipine 30 MG CAP PO SCH ×6 (04:12→21:06)
[2017-10-10 05:32] LABS: #Basophils 0.1 thou/uL (0.0-0.2); #Eosinphils 0.3 thou/uL (0.0-0.7); #Lymphocytes 1.7 thou/uL (1.20-3.40); #Monocytes 1.7 thou/uL (0.11-0.59); #Neutrophils 7.9 thou/uL (1.40-6.50); %Basophils 0.7 % (0.0-1.0); %Eosinophils 2.6 % (0.0-10.0); %Lymphocytes 14.5 % (21.0-51.0); %Monocytes 14.8 % (0.0-10.0); %Neutrophils 67.4 % (42.0-75.0); Mean Corpuscular HGB CONC 32.9 g/dL (32.0-36.0); Mean Corpuscular Hemoglobin 32.1 pg (27.0-31.0); Mean Corpuscular Volume 97.5 fl (80.0-94.0); Mean Platelet Volume 8.1 fL (7.4-10.4); Platelet Count 270 thou/uL (130-400); RBC Distribution Width 13.3 % (11.5-14.5); Red Blood Cell (RBC) Count 3.73 mill/uL (4.70-6.10); White Blood Cell (WBC) Count 11.7 thou/uL (4.8-10.8)
[2017-10-10 06:10] LABS: Anion Gap 12 mmol/L (10-20); BUN (Urea Nitrogen) 15 mg/dL (8.4-25.7); Calc. Creatinine Clearance 118 mL/min (70-130); Calcium 8.4 mg/dL (7.8-10.44); Carbon Dioxide 19 mmol/L (22-29); Chloride 103 mmol/L (98-107); Estimated GFR-MDRD Greater than 90; Glucose 111 mg/dL (70-105); Potassium 3.8 mmol/L (3.5-5.1); Sodium 130 mmol/L (136-145)
[2017-10-10] MEDS: Polyethylene Glycol 3350 17 GM Packet PER TUBE SCH (08:20)
--- NOTE | 2017-10-10 08:21 | PRG ---
DATE OF SERVICE: 10/10/2017 Thirty-five minutes critical care time. The patient remains intermittently on mechanical ventilation, sedated on a T-collar and looks quite c omfortable. PHYSICAL EXAMINATION: VITAL SIGNS: His temperature is 98.4, pulse 81, blood pressure 101/61, 24-hour intake 2869, output 2 015. HEENT: Unremarkable. NECK: Trach in good position. LUNGS: Clear anteriorly. CARDIOVASCULAR: S1, S2 regular. ABDOMEN: Soft, nontender. EXTREMITIES: Trace edema. LABORATORY DATA: White blood cell count 11.7, hematocrit 36.4, platelet count 270. Sodium 130, pota ssium 3.8, chloride 103, CO2 19, BUN 15, creatinine 0.6, glucose 111. ASSESSMENT: 1. Respiratory failure requiring mechanical ventilation. 2. Status post subarachnoid hemorrhage. 3. Status post tracheostomy and PEG tube placement. PLAN: 1. Continue to extend time off ventilator as tolerated. 2. For the time being, he is continuing Zosyn for a left lower lobe infiltrate. 3. Continue the clonazepam and Seroquel as he definitely seems more calm than he did last week. 4. Given the decrease in the patient's sodium will go ahead and stop his half normal saline.
--- NOTE | 2017-10-10 08:56 | PRG ---
DATE OF SERVICE: 10/10/2017 Mr. Martinez is hospital day 20 for subarachnoid hemorrhage with intraventricular extension associated h ydrocephalus. He underwent craniotomy and placement of external ventricular drain. Postoperatively, he has slowly improved. This morning, his eyes are open. He does interact with the examiner and fo llows commands in his upper extremities. He is a bit more delayed on the left side compared to the r ight, but does wiggle his toes to command as well. His wounds are healing well. He has undergone tr acheostomy and PEG tube placement. He is on fosphenytoin and also broad spectrum antibiotics. He is also on Seroquel for agitation. I should note that they did a paracentesis yesterday and were able to remove I am told 1.5 liters of fluid. This appears to have helped as well with his clinical cour se.
[2017-10-10] MEDS: clonazePAM 1 MG TAB PER TUBE SCH ×2 (10:07→20:36)
[2017-10-10] MEDS: Pantoprazole 40 MG GRANULES PACKET PER TUBE SCH (10:09)
[2017-10-10] MEDS: Acetaminophen 650 MG/20.3 ML UDCUP PER TUBE PRN ×2 (13:30→18:45)
--- NOTE | 2017-10-10 15:22 | OP ---
DATE OF SERVICE: 10/09/2017 SERVICE: Pulmonary Medicine. PROCEDURE PERFORMED: Ultrasound-guided paracentesis. PREPROCEDURE DIAGNOSES: 1. Ascites. 2. Respiratory failure. POSTPROCEDURE DIAGNOSES: 1. Ascites. 2. Respiratory failure. DESCRIPTION OF PROCEDURE: A timeout was performed identifying correct procedure and patient. Pleura l fluid was identified using ultrasound probe. The procedure site was marked. The correct site was cleaned and draped in sterile fashion. A finder needle was inserted into the peritoneal space with r eturn of clear yellow fluid. A subsequent peritoneal drainage catheter was inserted in the same loca tion, a total quantity of 1900 mL of clear yellow fluid was withdrawn. The patient tolerated the pro cedure well without immediate complication. The catheter was withdrawn and an occlusive bandage was applied. ESTIMATED BLOOD LOSS: 5 mL. COMPLICATIONS: None.
--- NOTE | 2017-10-10 17:03 | PRG ---
DATE OF SERVICE: 10/09/2017 SERVICE: Pulmonary Medicine. INTERVAL HISTORY: The patient is doing poorly from a respiratory standpoint. His oxygen requirements are fine. That being said, he continues to have persistent abdominal firmness. Whenever he pushes on his belly, he makes grimacing faces. He appears to have minimal rebound as well. As such, tube feeds are going to be interrupted and we are going to get an image of his belly. He cannot provide any additional elements of the history. He is following some very simple commands but outside of that, he is not doing very much. He does respond to his environment but otherwise, is not too terribly interactive. PHYSICAL EXAMINATION: VITAL SIGNS: Afebrile currently. He had a T-max overnight of 101.1. Pulse 89 , blood pressure 127/81, respirations 23, saturation 100% on 31% FiO2 and a PEEP of 5. GENERAL: The patient is awake. . Outside of this, he is not responding well to his environment. He looks to be in mild distress. HEENT: Normocephalic, atraumatic. Sclerae white. Conjunctivae pink. Tracheostomy is in good position. It is clean, dry and intact. LUNGS: Decent air entry. There are some crackles present dependently but otherwise, I do not hear any significant prolonged expiratory phase, wheezing or rhonchi. HEART: Normal rate, regular. ABDOMEN: Firm. Bowel sounds are hypoactive. There seems to be some tenderness to palpation throughout. A little rebound is present. MUSCULOSKELETAL: No cyanosis or clubbing. There is no pitting in the bilateral lower extremities. NEUROLOGIC: Grossly nonfocal. LABORATORY DATA: WBC 14.4, hemoglobin 11.3, platelets 387,000. Neutrophil count is roughly stable. Sodium 132, potassium 3.4, basic metabolic profile is otherwise unremarkable. Blood cultures x2 and urine culture from the 27th were unremarkable. ASSESSMENT: 1. Acute hypoxic respiratory failure. 2. Subarachnoid hemorrhage. 3. Metabolic encephalopathy. 4. Healthcare-associated pneumonia, suspected. 5. Abnormal abdominal exam. PLAN: We will check a C. diff. I will repeat cultures. I will continue our empiric antibiotics, but I will add anaerobic coverage for the gut. Pulmonary Critical Care will continue to follow along. We will perform a CT scan of the abdomen to look for any acute abdominal process that could be occurring. Ventilator weaning is not possible with the abdominal process. Adjustments have been made to improve comfort. Critical care time: 30 minutes. MTDD
[2017-10-11] MEDS: Fosphenytoin Sodium 100 MG in Sodium Chloride 0.9% 100 ML IVPB SCH ×3 (01:32→16:37)
[2017-10-11] MEDS: niMODipine 30 MG CAP PO SCH ×6 (01:32→20:43)
[2017-10-11 05:03] LABS: Anion Gap 11 mmol/L (10-20); BUN (Urea Nitrogen) 12 mg/dL (8.4-25.7); Calc. Creatinine Clearance 125 mL/min (70-130); Calcium 8.5 mg/dL (7.8-10.44); Carbon Dioxide 21 mmol/L (22-29); Chloride 102 mmol/L (98-107); Estimated GFR-MDRD Greater than 90; Glucose 113 mg/dL (70-105); Potassium 3.7 mmol/L (3.5-5.1); Sodium 130 mmol/L (136-145)
[2017-10-11] MEDS: Piperacillin/Tazobactam 3.375 GM in Sodium Chloride 0.9% 100 ML IVPB SCH ×4 (05:12→23:50)
[2017-10-11 05:25] LABS: Band 1 % (5-11); Eosinophils 2 % (0-10); Hemoglobin 12.4 g/dL (14.0-18.0); Lymphocytes 24 % (21-51); MDiff Complete? YES; Mean Corpuscular HGB CONC 33.4 g/dL (32.0-36.0); Mean Corpuscular Hemoglobin 32.4 pg (27.0-31.0); Mean Corpuscular Volume 97.1 fl (80.0-94.0); Mean Platelet Volume 7.7 fL (7.4-10.4); Monocytes 9 % (0-10); Neutrophil 64 % (42-75); Platelet Count 373 thou/uL (130-400); Red Blood Cell (RBC) Count 3.81 mill/uL (4.70-6.10); White Blood Cell (WBC) Count 11.4 thou/uL (4.8-10.8)
[2017-10-11] MEDS ORDERED: Furosemide 20 MG/2 ML VIAL IVP SCH (07:30)
--- NOTE | 2017-10-11 07:52 | PRG ---
DATE OF SERVICE: 10/11/2017 The patient is doing fairly well. He stayed off the ventilator all night last night. He intermitten tly follows commands. PHYSICAL EXAMINATION: VITAL SIGNS: Temperature 98.2, pulse 90, blood pressure 99/60, O2 sat 98%, 24 intake 2735, output 29 80. HEENT: Pupils react. Sclerae anicteric. Oropharynx clear. NECK: Trach in good position. LUNGS: Clear. CARDIAC: S1 and S2 regular. ABDOMEN: Soft, nontender. EXTREMITIES: No edema. LABORATORY DATA: Sodium 130, potassium 3.7, chloride 102, CO2 21, BUN 12, creatinine 0.6, glucose 11 3. White blood cell count 11.4, hematocrit 37, platelet count 373. Cultures show no growth to date. ASSESSMENT: 1. Acute respiratory failure requiring mechanical ventilation and tracheostomy placement. 2. Status post subarachnoid hemorrhage. 3. Severe debilitation. PLAN: 1. He will be moved to the [facility] as he is no longer requiring the ventilator. 2. I will go ahead and give him a small dose of Lasix to see if this will eliminate some free water and allow his sodium to go to a near normal level. 3. Continue clonazepam and Seroquel. 4. The patient is DNR.
--- NOTE | 2017-10-11 09:08 | PRG ---
DATE OF SERVICE: 10/09/2017 The patient is on hospital day #19. His neurological exam is stable. His wounds are healing well. They were likely to be transferred to the floor potentially earlier this week with possible angiograp hy per Dr. Moser. Apparently, Dr. Moser review the patient's case, also perhaps this week.
[2017-10-11] MEDS: clonazePAM 1 MG TAB PER TUBE SCH ×2 (09:45→20:43)
[2017-10-11] MEDS: Pantoprazole 40 MG GRANULES PACKET PER TUBE SCH (09:46)
--- NOTE | 2017-10-11 13:26 | PRG ---
Mr. Martinez's hospital day 21. He is more alert this morning than when I have seen him in the past. H is eyes are spontaneously open. He moves his extremities all 4 spontaneously and I think there may b e a language barrier as far as getting him to adequately follow commands. Dr. Moser returns this wee k and will consider possible angiography.
[2017-10-11] MEDS ORDERED: niMODipine 30 MG CAP PO SCH (21:00)
[2017-10-12] MEDS: Fosphenytoin Sodium 100 MG in Sodium Chloride 0.9% 100 ML IVPB SCH ×3 (00:45→18:23)
[2017-10-12] MEDS: niMODipine 30 MG CAP PO SCH ×6 (00:46→20:44)
[2017-10-12 04:51] LABS: Anion Gap 12 mmol/L (10-20); BUN (Urea Nitrogen) 15 mg/dL (8.4-25.7); Calc. Creatinine Clearance 116 mL/min (70-130); Calcium 8.3 mg/dL (7.8-10.44); Carbon Dioxide 21 mmol/L (22-29); Chloride 101 mmol/L (98-107); Estimated GFR-MDRD Greater than 90; Glucose 109 mg/dL (70-105); Potassium 3.7 mmol/L (3.5-5.1); Sodium 130 mmol/L (136-145)
[2017-10-12 05:10] LABS: Band 2 % (5-11); Eosinophils 1 % (0-10); Lymphocytes 15 % (21-51); MDiff Complete? YES; Mean Corpuscular HGB CONC 33.5 g/dL (32.0-36.0); Mean Corpuscular Hemoglobin 32.5 pg (27.0-31.0); Mean Platelet Volume 7.8 fL (7.4-10.4); Monocytes 14 % (0-10); Neutrophil 68 % (42-75); Platelet Count 313 thou/uL (130-400); Red Blood Cell (RBC) Count 3.69 mill/uL (4.70-6.10); White Blood Cell (WBC) Count 11.2 thou/uL (4.8-10.8)
[2017-10-12] MEDS: Piperacillin/Tazobactam 3.375 GM in Sodium Chloride 0.9% 100 ML IVPB SCH ×3 (05:24→18:22)
--- NOTE | 2017-10-12 08:45 | PRG ---
DATE OF SERVICE: 10/12/2017 Mr. Martinez is now 22 days status post admission for intraventricular hemorrhage with subarachnoid hemorrhage. He is now on the step down unit in the ICU. He opens his eyes, but only intermittently follows commands. He is also status post a PEG and trach. The plan will be to move forward with disposition planning, which will likely be towards an LTAC facility. His funding status will make that a challenging arrangement. He will also need follow up imaging as he has had just one a CT angiogram. He would most likely benefit from conventional angiography, but I do not believe he would cooperate well with remaining still. Therefore, I am inclined to repeat the CT angiogram of the head before his dismissal. OZZY
[2017-10-12] MEDS: Polyethylene Glycol 3350 17 GM Packet PER TUBE SCH (08:49)
[2017-10-12] MEDS: clonazePAM 1 MG TAB PER TUBE SCH ×2 (08:49→20:44)
[2017-10-12] MEDS: Pantoprazole 40 MG GRANULES PACKET PER TUBE SCH (08:49)
--- NOTE | 2017-10-12 09:30 | PRG ---
DATE OF SERVICE: 10/12/2017 SUBJECTIVE: He is actually beginning to follow some commands for me today. OBJECTIVE: VITAL SIGNS: On exam, temperature is 98.3, pulse 79, respirations 19, O2 sat 100%, blood pressure 10 5/65. A 24-hour intake 1507 and output 2320. HEENT: Unremarkable. NECK: Trach clean. CARDIAC: S1 and S2 regular. ABDOMEN: Soft. LUNGS: Clear, but distant breath sounds. EXTREMITIES: No edema. LABORATORY DATA: White blood cell count 11.2, hematocrit 35.8, platelet count 313. Sodium 130, pota ssium 3.7, chloride 101, CO2 of 21, BUN 15, creatinine 0.7, glucose 109. ASSESSMENT: 1. Stable pulmonary status. 2. Status post subarachnoid hemorrhage. PLAN: 1. Continue current care, still watching his sodium level, which appears to be stable, but still low . 2. Continuing antibiotics for 5 days and then stop.
[2017-10-13] MEDS: Piperacillin/Tazobactam 3.375 GM in Sodium Chloride 0.9% 100 ML IVPB SCH ×5 (00:33→23:43)
[2017-10-13] MEDS: niMODipine 30 MG CAP PO SCH ×6 (02:15→20:35)
[2017-10-13] MEDS: Fosphenytoin Sodium 100 MG in Sodium Chloride 0.9% 100 ML IVPB SCH ×3 (02:15→16:46)
[2017-10-13 04:43] LABS: Anion Gap 9 mmol/L (10-20); BUN (Urea Nitrogen) 14 mg/dL (8.4-25.7); Calc. Creatinine Clearance 119 mL/min (70-130); Calcium 8.3 mg/dL (7.8-10.44); Carbon Dioxide 24 mmol/L (22-29); Chloride 102 mmol/L (98-107); Estimated GFR-MDRD Greater than 90; Glucose 110 mg/dL (70-105); Potassium 3.3 mmol/L (3.5-5.1); Sodium 132 mmol/L (136-145)
[2017-10-13 05:11] LABS: Band 12 % (5-11); Eosinophils 7 % (0-10); Hemoglobin 12.2 g/dL (14.0-18.0); Lymphocytes 22 % (21-51); MDiff Complete? YES; Mean Corpuscular HGB CONC 32.9 g/dL (32.0-36.0); Mean Corpuscular Hemoglobin 31.9 pg (27.0-31.0); Mean Corpuscular Volume 96.9 fl (80.0-94.0); Mean Platelet Volume 7.6 fL (7.4-10.4); Monocytes 5 % (0-10); Neutrophil 53 % (42-75); PLT Morphology Comment Appears Adequate; Platelet Count 343 thou/uL (130-400); RBC Distribution Width 12.9 % (11.5-14.5); Red Blood Cell (RBC) Count 3.83 mill/uL (4.70-6.10); White Blood Cell (WBC) Count 11.1 thou/uL (4.8-10.8)
--- NOTE | 2017-10-13 09:21 | PRG ---
DATE OF SERVICE: 10/13/2017 SUBJECTIVE: The patient is doing reasonably well. He does have excess amount of secretions. PHYSICAL EXAMINATION: VITAL SIGNS: Temperature is 98.3, pulse 82, respirations 20, O2 sat 95%, blood pressure 103/64. A 2 4-hour intake 2110, output 2000. HEENT: Unremarkable. NECK: Without adenopathy or JVD. Trach with excess secretions. LUNGS: Clear. CARDIAC: S1 and S2 regular. ABDOMEN: Soft. EXTREMITIES: No edema. LABORATORY DATA: White blood cell count 11, hematocrit 37, platelet count 343. Sodium 132, potassiu m 3.3, chloride 102, CO2 24, BUN 14, creatinine 0.6, glucose 110. ASSESSMENT: 1. Status post subarachnoid hemorrhage. 2. Status post tracheostomy placement for persistent respiratory failure and inability to clear secr etions. PLAN: He has been weaned off the ventilator successfully. I will go ahead and add scopolamine patch given the excess secretions. He is continuing on anxiolytic medication. We are awaiting placement.
[2017-10-13] MEDS: Pantoprazole 40 MG GRANULES PACKET PER TUBE SCH (09:48)
[2017-10-13] MEDS: Scopolamine 1.5 mg/72 hour Patch TD SCH (09:49)
[2017-10-13] MEDS: clonazePAM 1 MG TAB PER TUBE SCH ×2 (10:11→20:35)
[2017-10-14] MEDS: Fosphenytoin Sodium 100 MG in Sodium Chloride 0.9% 100 ML IVPB SCH ×3 (00:20→18:04)
[2017-10-14] MEDS: niMODipine 30 MG CAP PO SCH ×6 (02:26→20:50)
[2017-10-14 04:45] LABS: Anion Gap 9 mmol/L (10-20); BUN (Urea Nitrogen) 12 mg/dL (8.4-25.7); Calc. Creatinine Clearance 124 mL/min (70-130); Calcium 8.4 mg/dL (7.8-10.44); Carbon Dioxide 24 mmol/L (22-29); Chloride 102 mmol/L (98-107); Estimated GFR-MDRD Greater than 90; Glucose 120 mg/dL (70-105); Potassium 3.7 mmol/L (3.5-5.1); Sodium 131 mmol/L (136-145)
[2017-10-14 05:08] LABS: Band 3 % (5-11); Eosinophils 3 % (0-10); Hemoglobin 11.7 g/dL (14.0-18.0); Lymphocytes 15 % (21-51); MDiff Complete? YES; Macrocytosis SLIGHT = 6-15 cells (100X) (0-5/hpf); Mean Corpuscular HGB CONC 33.1 g/dL (32.0-36.0); Mean Corpuscular Hemoglobin 31.8 pg (27.0-31.0); Mean Corpuscular Volume 96.2 fl (80.0-94.0); Mean Platelet Volume 7.3 fL (7.4-10.4); Monocytes 11 % (0-10); Neutrophil 68 % (42-75); PLT Morphology Comment Appears Adequate; Platelet Count 345 thou/uL (130-400); RBC Distribution Width 12.9 % (11.5-14.5); Red Blood Cell (RBC) Count 3.68 mill/uL (4.70-6.10)
[2017-10-14] MEDS: Piperacillin/Tazobactam 3.375 GM in Sodium Chloride 0.9% 100 ML IVPB SCH ×3 (05:48→18:08)
--- NOTE | 2017-10-14 08:48 | PRG ---
DATE OF SERVICE: 10/14/2017 The patient is calm in bed. He opens his eyes, does not follow commands for me. PHYSICAL EXAMINATION: VITAL SIGNS: Temperature 98.4, pulse 87, respiratory rate 20, O2 sat 97%. HEENT: Unremarkable. NECK: Without adenopathy or JVD. CHEST: Clear. Trachea has decreased secretions. ABDOMEN: Soft. EXTREMITIES: No edema. LABORATORY DATA: White blood cell count 11, hematocrit 35.4, platelet count 345. Sodium 131, potass ium 3.7, chloride 102, CO2 24, BUN 12, creatinine 0.6, glucose 120. ASSESSMENT: 1. Status post tracheostomy placement for respiratory failure related to subarachnoid hemorrhage. 2. Encephalopathy. PLAN: 1. Go ahead and stop daily blood draws. 2. Continuing supportive care with tube feeds. 3. Stop the scheduled clonazepam. 4. Up in a chair as tolerated. 5. Placement issues.
--- NOTE | 2017-10-14 08:49 | CT ---
CT ANGIO HEAD: Date: 10/14/17 Multiple axial tomograms obtained through the head with IV enhancement following cerebral arteriogram protocol and multiplanar reconstruction and 3D postprocessing. INDICATION: Subarachnoid hemorrhage. Assess for aneurysm. FINDINGS: Intracranial internal carotid arteries appear unremarkable. There is mild atherosclerotic plaque in t he cavernous left ICA without significant stenosis. The middle cerebral arteries appear unremarkable. Anterior cerebrals appear unremarkable. Basilar art roberta is patent. No evidence of aneurysm identified. Posterior cerebral arteries appear symmetric. IMPRESSION: No evidence of aneurysm identified. POS: JUDY
[2017-10-14] MEDS: Pantoprazole 40 MG GRANULES PACKET PER TUBE SCH (09:25)
[2017-10-14] MEDS: Polyethylene Glycol 3350 17 GM Packet PER TUBE SCH (09:26)
[2017-10-14] MEDS: Acetaminophen 650 MG/20.3 ML UDCUP PER TUBE PRN (16:12)
--- NOTE | 2017-10-14 16:27 | PRG ---
DATE OF SERVICE: 10/14/2017 SUBJECTIVE: Mr. Martinez continues to recover in the step down unit. He does open his eyes and is aler t, but only episodically follows commands. He does not follow commands for me this morning. I perfo rmed a repeat CT angiogram to confirm absence of aneurysm as a source of his subarachnoid hemorrhage. This was performed with fine cuts and 3d recons and there is no evidence for aneurysm present. The re is no evidence for hydrocephalus or other pathologic finding at this time either. He continues to be monitored closely by our pulmonary colleagues. The plan will be ongoing nonsurgic al management. We await final disposition placement.
[2017-10-14] MEDS: Morphine 4 MG/ML VIAL SLOW IVP PRN (18:32)
[2017-10-14] MEDS ORDERED: ISOVUE-370 76%-LOCM 1 ML ONE (20:18)
[2017-10-15] MEDS: Fosphenytoin Sodium 100 MG in Sodium Chloride 0.9% 100 ML IVPB SCH ×3 (00:35→17:15)
[2017-10-15] MEDS: Piperacillin/Tazobactam 3.375 GM in Sodium Chloride 0.9% 100 ML IVPB SCH ×4 (00:35→17:32)
[2017-10-15] MEDS: Morphine 4 MG/ML VIAL SLOW IVP PRN ×4 (00:37→21:49)
[2017-10-15] MEDS: niMODipine 30 MG CAP PO SCH ×6 (01:06→21:51)
[2017-10-15] MEDS: Pantoprazole 40 MG GRANULES PACKET PER TUBE SCH (09:59)
--- NOTE | 2017-10-15 13:48 | PRG ---
DATE OF SERVICE: 10/15/2017 SUBJECTIVE: Trach in place for secretions. Copious amount of secretions. He is awake, alert, and r esponsive. OBJECTIVE: VITAL SIGNS: Sats are 99% on trach collar. Respiratory drive is about 40, temperature 98, blood pre ssure 133/71. CHEST: Anterior rhonchi. CARDIAC: Normal S1, S2. No gallops. ABDOMEN: Soft. No masses. Status post subarachnoid hemorrhage. Status post tracheostomy. He is a DNR, but apparently I told the family, he does not understand the DNR status. I spoke yester day with palliative care, they said they spoke with the family multiple times regarding the code stat us. IMPRESSION: 1. Status post subarachnoid hemorrhage. 2. Encephalopathy. 3. Tracheostomy. 4. DNR. 5. Secretions. PLAN: Continue supportive care. Once again, I discussed with family ongoing comfort care issues. Prognosis is guarded.
--- NOTE | 2017-10-15 19:26 | PRG ---
DATE OF SERVICE: 10/15/2017 This is Amadou Collins PA-C dictating for Luis Wilhelm M.D. INPATIENT PROGRESS NOTE SUBJECTIVE: Mr. Martinez is now hospital day #25. His exam continues to wax and wane, although current ly he is following commands in all 4 extremities. His eyes are open. He is awake and alert. He is nonverbal. He follows commands, greater in the right upper and lower extremities and left upper and lower extremities. We will continue to monitor the patient. Appreciate our medical colleagues helpi ng the patient's pulmonary status. Please call with any questions or changes in patient's neurologic status.
[2017-10-16] MEDS: Piperacillin/Tazobactam 3.375 GM in Sodium Chloride 0.9% 100 ML IVPB SCH ×4 (00:46→18:07)
[2017-10-16] MEDS: Fosphenytoin Sodium 100 MG in Sodium Chloride 0.9% 100 ML IVPB SCH ×3 (01:04→18:06)
[2017-10-16] MEDS: niMODipine 30 MG CAP PO SCH ×6 (01:12→20:03)
[2017-10-16] MEDS: Morphine 4 MG/ML VIAL SLOW IVP PRN ×3 (05:40→15:39)
[2017-10-16] MEDS: Polyethylene Glycol 3350 17 GM Packet PER TUBE SCH (08:27)
[2017-10-16] MEDS: Pantoprazole 40 MG GRANULES PACKET PER TUBE SCH (08:28)
[2017-10-16] MEDS: Scopolamine 1.5 mg/72 hour Patch TD SCH (08:28)
--- NOTE | 2017-10-16 13:31 | PRG ---
DATE OF SERVICE: 10/16/2017 SUBJECTIVE: This morning, he is awake, copious amount of secretions. OBJECTIVE: VITAL SIGNS: Sats 95% on the trach collar, respirations are 25, temperature is 97, pulse 81, and blo od pressure is 105/60. CHEST: Rhonchi. CARDIAC: Normal S1, S2, no gallops. ABDOMEN: Soft. IMPRESSION: 1. Intracerebral hemorrhage. 2. Status post trach. PLAN: Supportive care, eventually placement.
[2017-10-17] MEDS: Piperacillin/Tazobactam 3.375 GM in Sodium Chloride 0.9% 100 ML IVPB SCH ×2 (00:59→05:56)
[2017-10-17] MEDS: Fosphenytoin Sodium 100 MG in Sodium Chloride 0.9% 100 ML IVPB SCH ×3 (00:59→17:05)
[2017-10-17] MEDS: niMODipine 30 MG CAP PO SCH ×6 (01:05→20:23)
--- NOTE | 2017-10-17 08:55 | PRG ---
DATE OF SERVICE: 10/17/2017 The patient is about the same, does not respond very well. PHYSICAL EXAMINATION: VITAL SIGNS: Temperature 98.5, pulse 80, respiratory rate 20, O2 sat 100%, blood pressure 124/79. HEENT: Unremarkable. NECK: No JVD. CHEST: Clear with distant breath sounds. CARDIAC: S1 and S2 regular. ABDOMEN: Soft. EXTREMITIES: No edema. ASSESSMENT: 1. Encephalopathy. 2. Status post subarachnoid hemorrhage. 3. Status post Enterobacter in sputum. PLAN: 1. Stop antibiotics. 2. He is clear for placement in a [place] [facility]. 3. Would suggest getting the Hospitalist involved if the patient is going to remain in the hospital much longer.
[2017-10-17] MEDS: Pantoprazole 40 MG GRANULES PACKET PER TUBE SCH (09:53)
[2017-10-17] MEDS: Morphine 4 MG/ML VIAL SLOW IVP PRN (12:54)
[2017-10-18] MEDS: niMODipine 30 MG CAP PO SCH ×6 (00:55→22:57)
[2017-10-18] MEDS: Fosphenytoin Sodium 100 MG in Sodium Chloride 0.9% 100 ML IVPB SCH (00:55)
[2017-10-18 04:58] LABS: Anion Gap 10 mmol/L (10-20); BUN (Urea Nitrogen) 12 mg/dL (8.4-25.7); Calc. Creatinine Clearance 113 mL/min (70-130); Carbon Dioxide 24 mmol/L (22-29); Chloride 100 mmol/L (98-107); Estimated GFR-MDRD Greater than 90; Glucose 121 mg/dL (70-105); Sodium 130 mmol/L (136-145)
--- NOTE | 2017-10-18 08:37 | PRG ---
DATE OF SERVICE: 10/18/2017 SUBJECTIVE: The patient seems to be doing reasonably well. He is uncooperative with the exam. PHYSICAL EXAMINATION: VITAL SIGNS: Temperature 97.1, pulse 65, respirations 15, O2 saturation 98%, blood pressure 150/79. HEENT: Unremarkable. NECK: Trach in good position. LUNGS: Clear. CARDIOVASCULAR: S1, S2 regular. ABDOMEN: Soft. EXTREMITIES: No edema. LABORATORY DATA: Sodium 130, potassium 4, chloride 100, CO2 24, BUN 12, creatinine 0.7, glucose 121. ASSESSMENT: 1. Subarachnoid hemorrhage. 2. Probable anoxic brain injury. 3. Status post trach. PLAN: Awaiting placement. I think we should go ahead and change his Dilantin over to oral dosing. T he major problem now is placement.
[2017-10-18] MEDS: Polyethylene Glycol 3350 17 GM Packet PER TUBE SCH (08:55)
[2017-10-18] MEDS: Pantoprazole 40 MG GRANULES PACKET PER TUBE SCH (10:46)
[2017-10-19] MEDS: niMODipine 30 MG CAP PO SCH ×6 (01:59→20:55)
--- NOTE | 2017-10-19 07:50 | PRG ---
DATE OF SERVICE: 10/19/2017 The patient is doing better in terms of mental status. PHYSICAL EXAMINATION: VITAL SIGNS: His temperature is 98.1, pulse 77, respiratory rate 20, O2 sat 100%, blood pressure 134 /83. HEENT: Unremarkable. NECK: Some trach secretions. CARDIAC: S1 and S2 regular. LUNGS: Clear. ABDOMEN: Soft. EXTREMITIES: No edema. LABORATORY DATA: No new labs were obtained today. ASSESSMENT: 1. Status post subarachnoid hemorrhage. 2. Anoxic brain injury. 3. Status post trach. PLAN: 1. Downsize trach. 2. Ask PT and speech therapy to see. 3. Working on placement.
[2017-10-19] MEDS: Scopolamine 1.5 mg/72 hour Patch TD SCH (10:55)
[2017-10-19] MEDS: Pantoprazole 40 MG GRANULES PACKET PER TUBE SCH (10:56)
[2017-10-20] MEDS: niMODipine 30 MG CAP PO SCH ×6 (01:40→21:33)
--- NOTE | 2017-10-20 08:40 | PRG ---
DATE OF SERVICE: 10/20/2017 SUBJECTIVE: He is about the same. He is arousable as he was yesterday. OBJECTIVE: VITAL SIGNS: Temperature 98.1, pulse 81, respiration 24, O2 sat 100%, blood pressure 108/80. GENERA L: He has had no fever. HEENT: Unremarkable. NECK: He has a tracheostomy in place. CARDIAC: S1 and S2 regular. LUNGS: Clear. ABDOMEN: Soft, nontender. EXTREMITIES: No edema. ASSESSMENT: 1. Status post subarachnoid hemorrhage. 2. Improved encephalopathy. 3. Seizures, which seemed to be controlled on Dilantin. PLAN: Awaiting placement. My hope is that he can be left without restraints.
[2017-10-20] MEDS: Polyethylene Glycol 3350 17 GM Packet PER TUBE SCH (09:26)
[2017-10-20] MEDS: Pantoprazole 40 MG GRANULES PACKET PER TUBE SCH (09:27)
[2017-10-21] MEDS: niMODipine 30 MG CAP PO SCH ×6 (01:15→20:46)
--- NOTE | 2017-10-21 09:39 | PRG ---
DATE OF SERVICE: 10/21/2017 SUBJECTIVE: The patient is still requiring restraints because of agitation. PHYSICAL EXAMINATION: VITAL SIGNS: Temperature 97.6, pulse 81, respirations 26, O2 sat 95%. HEENT: Unremarkable. NECK: Trach in good position. LUNGS: Clear. CARDIOVASCULAR: S1, S2 regular. ABDOMEN: Soft. EXTREMITIES: No edema. LABORATORY DATA: No labs were done. ASSESSMENT: 1. Status post subarachnoid hemorrhage. 2. Encephalopathy. 3. Agitation. PLAN: 1. Try to put the patient on Depakote and Geodon and see if that will lead to more cooperative behav ior. 2. Placement is pending.
[2017-10-21] MEDS: Valproate Sodium 250 mg/5 ml UD Cup PO SCH ×3 (09:51→20:46)
[2017-10-21] MEDS: Pantoprazole 40 MG GRANULES PACKET PER TUBE SCH (09:52)
[2017-10-21] MEDS: Ziprasidone 20 MG CAP PER TUBE SCH ×2 (09:53→20:46)
[2017-10-22] MEDS: niMODipine 30 MG CAP PO SCH ×6 (02:02→21:07)
[2017-10-22 04:31] LABS: Anion Gap 11 mmol/L (10-20); BUN (Urea Nitrogen) 17 mg/dL (8.4-25.7); Calc. Creatinine Clearance 114 mL/min (70-130); Carbon Dioxide 25 mmol/L (22-29); Chloride 100 mmol/L (98-107); Estimated GFR-MDRD Greater than 90; Glucose 94 mg/dL (70-105); Potassium 3.8 mmol/L (3.5-5.1); Sodium 132 mmol/L (136-145)
[2017-10-22] MEDS: Polyethylene Glycol 3350 17 GM Packet PER TUBE SCH (09:54)
[2017-10-22] MEDS: Pantoprazole 40 MG GRANULES PACKET PER TUBE SCH (09:55)
[2017-10-22] MEDS: Ziprasidone 20 MG CAP PER TUBE SCH ×2 (09:55→21:06)
[2017-10-22] MEDS: Scopolamine 1.5 mg/72 hour Patch TD SCH (10:01)
[2017-10-22] MEDS: Valproate Sodium 250 mg/5 ml UD Cup PO SCH ×3 (11:46→21:07)
[2017-10-22] MEDS: Acetaminophen 650 MG/20.3 ML UDCUP PER TUBE PRN (21:20)
--- NOTE | 2017-10-22 21:50 | PRG ---
DATE OF SERVICE: 10/22/2017 SUBJECTIVE: Mr. Martinez is unchanged. He received enteral Geodon, which would put him to sleepy. OBJECTIVE: VITAL SIGNS: He is afebrile, heart rate 91, respiratory rate 20, oximetry is 98, and blood pressure 120/77. LUNGS: Clear. He has no evidence of retained secretions. He is on a trach collar. HEART: Regular rhythm. Abdomen: Soft. LABORATORY DATA: He has not had lab done other than electrolytes and support. Sodium is 132, potassium 3.8, chloride 100, bicarbonate 25, BUN 17, creatinine 0.65. IMPRESSION: 1. Status post tracheostomy for respiratory failure. 2. Status post subarachnoid hemorrhage. PLAN: Placement supportive care.
[2017-10-23] MEDS: niMODipine 30 MG CAP PO SCH ×6 (01:18→21:25)
[2017-10-23] MEDS: Acetaminophen 650 MG/20.3 ML UDCUP PER TUBE PRN ×2 (04:16→17:12)
[2017-10-23] MEDS: Ziprasidone 20 MG CAP PER TUBE SCH ×2 (08:13→21:26)
[2017-10-23] MEDS: Pantoprazole 40 MG GRANULES PACKET PER TUBE SCH (08:13)
[2017-10-23] MEDS: Valproate Sodium 250 mg/5 ml UD Cup PO SCH ×3 (08:22→21:45)
[2017-10-23 09:45] LABS: Mean Corpuscular HGB CONC 31.3 g/dL (32.0-36.0); Mean Corpuscular Hemoglobin 31.8 pg (27.0-31.0); RBC Distribution Width 13.1 % (11.5-14.5); White Blood Cell (WBC) Count 39.2 thou/uL (4.8-10.8)
[2017-10-23 09:59] LABS: Band 7 % (5-11); Lymphocytes 13 % (21-51); MDiff Complete? YES; Mean Platelet Volume 10.9 fL (7.4-10.4); Monocytes 2 % (0-10); Neutrophil 76 % (42-75); PLT Morphology Comment PLT clumps seen-ADEQ; Platelet Count 59 thou/uL (130-400); Reactive Lymphocytes 2 % (0-10)
[2017-10-23 10:59] LABS: Bilirubin Negative (Negative); Blood, Urine Large (Negative); Glucose, Urine (Dipstick) Negative (Negative); Leukocyte Large (Negative); Nitrite Positive (Negative); Protein, Urine (Dipstick) 30 mg/dL (Neg-Trace); Specific Gravity, Urine 1.015 (1.005-1.030)
[2017-10-23 11:01] LABS: Clarity CLEAR (Clear)
[2017-10-23 11:14] LABS: Bacteria/HPF 3+ HPF (None Seen); Hyaline Casts/LPF NONE SEEN LPF (0-3 Hyaline); RBC/HPF GREATER THAN 50-TNTC HPF (0-3); Squamous Epithelial 0-3 HPF (0-3)
[2017-10-23] MEDS: Vancomycin HCl 1 GM in Premix Bag 1 BAG IVPB SCH (11:56)
[2017-10-23] MEDS: Meropenem 2 GM, Admixture Fee 1 EACH in Sodium Chloride 0.9% 100 ML IVPB SCH ×2 (12:05→21:26)
--- NOTE | 2017-10-23 12:06 | RAD ---
PORTABLE AP CHEST XRAY: DATE: 10/23/17. HISTORY: Fever. COMPARISON: 10/07/17. FINDINGS: Tracheostomy device remains in place. The cardiac silhouette and pulmonary vasculature are within no rmal limits. There has been interval development of increased parenchymal opacities at the medial as pect of each lung base more prominent on the left which could be related to either aspiration pneumon itis or developing pneumonia. Atelectasis is a possibility. Pulmonary vasculature is within normal limits. No other interval change. IMPRESSION: Interval development of bibasilar parenchymal opacities which could be related to atelectasis, develo ping pneumonia, or aspiration pneumonitis. Continued followup is recommended. POS: JUDY
--- NOTE | 2017-10-23 12:30 | ULT ---
BILATERAL LOWER EXTREMITY VENOUS ULTRASOUND WITH DOPPLER: HISTORY: Mobile patient. Evaluate for thrombus. COMPARISON: 10/07/17. TECHNIQUE: Overton scale, color flow, Doppler imaging, and spectral waveform analysis was performed of the left and right lower extremity venous system. FINDINGS: Bilaterally, there is compressibility, presence of flow and augmentation in the common femoral vein, femoral vein, and popliteal vein. There is flow in the bilateral greater saphenous veins, profunda v ein, and posterior tibial veins. Nonspecific right lower extremity lymph nodes are noted. IMPRESSION: No evidence of thrombus in the left or right lower extremity venous system. POS: [facility]
--- NOTE | 2017-10-23 14:22 | PRG ---
DATE OF SERVICE: 10/23/2017 Mr. Martinez has had a temperature spike earlier this morning. I was notified about 10:00 this morning. Antimicrobial therapy was ordered. Apparently, his temperature went up to 101.6 at 8:00 last night . OBJECTIVE: GENERAL: He is in no distress at this time. VITAL SIGNS: Heart rate is 109, respiratory rates in the 20s, oximetry is 96 on his trach collar, bl ood pressure 105/73. LUNGS: Remarkable for equal breath sounds. I do not hear any crackles. HEART: Regular rhythm. ABDOMEN: Soft and nontender. EXTREMITIES: Without clubbing, cyanosis, or edema. He spends most of his time on either side with h is knees pulled up. He reportedly has no sacral breakdown. He has bibasilar infiltrates on chest radiograph today. I reviewed this. Venography was done, which shows no clots on the venous side of both lower extremities. IMPRESSION: Pneumonia, likely aspiration mediated. Start him on Maxipime and vancomycin. His prognosis remains quite poor. He is in no distress. He can move out of the Intermediate Care Un it. He remains a DO NOT RESUSCITATE patient. So, there is no absolute need for cardiac monitoring a t this time.
[2017-10-24] MEDS: Vancomycin HCl 1 GM in Premix Bag 1 BAG IVPB SCH ×3 (00:05→23:49)
[2017-10-24] MEDS: niMODipine 30 MG CAP PO SCH ×6 (00:32→20:46)
[2017-10-24] MEDS: Meropenem 2 GM, Admixture Fee 1 EACH in Sodium Chloride 0.9% 100 ML IVPB SCH ×3 (04:15→20:48)
[2017-10-24] MEDS: Polyethylene Glycol 3350 17 GM Packet PER TUBE SCH (06:30)
[2017-10-24] MEDS: Valproate Sodium 250 mg/5 ml UD Cup PO SCH ×3 (09:40→20:47)
[2017-10-24] MEDS: Pantoprazole 40 MG GRANULES PACKET PER TUBE SCH (09:41)
[2017-10-24] MEDS: Ziprasidone 20 MG CAP PER TUBE SCH ×2 (09:41→20:46)
--- NOTE | 2017-10-24 12:41 | PRG ---
DATE OF SERVICE: 10/24/2017 SUBJECTIVE: The patient was moved up to the floor over the weekend. He has had intermittent problem s with fever got up to 103 yesterday, currently 98.3. He is without restraints and looks calm. PHYSICAL EXAMINATION: VITAL SIGNS: On exam, currently, temperature 98.3, pulse 104, respirations 24, O2 sat 95%. HEENT: Unremarkable. NECK: No JVD. LUNGS: Fairly clear. CARDIAC: S1 and S2, regular. ABDOMEN: Soft, nontender. EXTREMITIES: No edema. He had a Doppler yesterday that was negative. ASSESSMENT: 1. Likely nosocomial pneumonia - patient has been started on meropenem and vancomycin by Dr. Ward. 2. Status post respiratory failure. 3. Status post subarachnoid hemorrhage. PLAN: Continue the antibiotics for a full 7 days and then stop. We will inform Neurosurgery that th e patient needs to be transitioned either to the hospitalist care or to some other services. The marin blankenship is now out of the ICU. I will follow intermittently.
[2017-10-25] MEDS: niMODipine 30 MG CAP PO SCH ×6 (01:01→21:17)
--- NOTE | 2017-10-25 01:49 | CON ---
DATE OF CONSULTATION: 10/24/2017 PRIMARY CARE PHYSICIAN: None. CONSULTING PHYSICIAN: Dr. Moser with Neurosurgery. REASON FOR CONSULTATION: Medical management. HISTORY OF PRESENT ILLNESS: This is a 56-year-old male with an extensive smoking and alcohol history as well as history of COPD. He presented to the emergency room with acute intracerebral hemorrhage. Patient was intubated and had to have multiple surgical drains placed for drainage of clot and CSF. Patient has now been in the hospital for about a month. He has very slow improvement, eventually had to have a trach and PEG placed. Dr. Paez has been following him in the emergency room. Patient has been intermittently able to follow commands, he is now moving all of his extremities, though unable to follow commands well. Does not have good coordination with them. He has not been able to walk or performing his activities of daily living. He also has had intermittent agitation, for which he has now placed on valproate and Geodon. He also was initially treated with Dilantin for seizure prophylaxis that had since been stopped. Patient has improved to the point where he now needs to go to rehab; however, he is unfunded and so, there is some difficulty with getting him placed at this point and the family is unable to take care of him at home. The only recent change was 2 days ago, patient started spiking a fever, this was associated also with a spike in his white blood cell count from 11-39 yesterday. He was also found to have dirty urine with a new finding of greater than 50 to too numerous to count white blood cells and red blood cells as well as 3+ bacteria. Blood cultures were drawn and patient was put on meropenem and vancomycin by Dr. Ward. Patient spiked a fever again yesterday, but has now since resolved. Next temperature was 103. Blood and urine cultures were drawn, which are now growing back one out of two blood cultures growing back E. coli and the urine culture growing back E. coli as well. Susceptibility is not yet back, history is taken from the family chart, as patient is not able to communicate. PAST MEDICAL HISTORY: COPD. PAST SURGICAL HISTORY: None. PAST PSYCHIATRIC HISTORY: Unknown. SOCIAL HISTORY: Patient smokes unknown number of cigarettes daily until admission, also drink every day including drinking a beer for breakfast unknown exactly how much he be used per day. No known drug use. FAMILY HISTORY: No significant family history per sister ALLERGIES: None known. MEDICATIONS PRIOR TO ADMISSION: None known. CURRENT MEDICATIONS: Reviewed from the chart. REVIEW OF SYSTEMS: Unobtainable. PHYSICAL EXAMINATION: VITAL SIGNS: Temperature 97.9, pulse 85, respirations 22, O2 sat 100% through trach collar with oxygen with O2 flow rate of 8 liters, blood pressure 113/74. GENERAL: This is a thin male who is alert, intermittently responsive and we will follow commands to squeeze with his right hand, though not with his left. He is intermittently moves all of his extremities and mostly not to command and will focus on his sisters when they talked to him. HEENT: Pupils are equally round and reactive to light. He seems to be moving his eyes in all directions and conjugate gaze. Oropharynx little bit dry, no lesions noted. NECK: Patient has a tracheostomy in place with oxygen has been flowing via it. No masses noted. HEART: Regular rate and rhythm. No murmurs, rubs, or gallops. LUNGS: Clear to auscultation bilaterally. He does have a little bit of junky sounds from his tracheostomy site on expiration and is coughing a little bit. He tried to clear some secretions. ABDOMEN: Soft, nontender to palpation, normoactive bowel sounds. He does have a PEG tube in place. He has no masses or hepatosplenomegaly. EXTREMITIES: No clubbing, cyanosis, or edema. He does seem to move all of his extremities spontaneously, though the on the left much less than the right. There are good pulses peripherally. SKIN: Without rashes or other lesions noted. NEUROLOGIC: See extremity exam. LABORATORY DATA: See HPI. CBC with white blood cell count of 39,000, hemoglobin and hematocrit are normal, MCV is elevated at 102, platelet count 259 that dropped from 300 about a week before, 76% neutrophils with 7 bands. Complete metabolic panel from couple of days ago shows sodium of 132, which has been stable. The remainder was normal. IMAGING: The patient had a recent bilateral lower extremity venogram that was negative for DVT. His chest x-ray from yesterday showed development of some bibasilar parenchymal opacities that could be atelectasis, developing pneumonia or aspiration pneumonitis. He had a CT of the augustine of Cid angio with contrast done a couple of times during hospitalization, which showed no evidence of aneurysm as the source of the bleed. ASSESSMENT: 1. Spontaneous intracranial hemorrhage with stroke. Patient is stabilized from a neurosurgical standpoint and they are ready to transfer to rehabilitation. We will continue to have employment case manager work on finding placement for him. 2. Sepsis, now improved. We will recheck white blood cell count and continue to follow temperature and vital sign curves. We will continue meropenem for now. 3. Urinary tract infection with Escherichia coli. We will continue meropenem and await Escherichia coli sensitivities. 4. Bacteremia from urinary tract infection. 5. Status post respiratory failure with tracheostomy. 6. Post stroke encephalopathy with PEG, unable to take food orally at this time. 7. Deep venous thrombosis prophylaxis. Patient is having venograms done to make certain, he is not getting blood clots, but he is not a good candidate for pharmacologic deep venous thrombosis prophylaxis at this time. He is getting sequential compression devices in the bed. 8. Code status. I did discuss this with family as well as review of the chart. The family has made patient DNR at this time. His medical decision makers are his sisters who are present at the bedside, one with Dilcia Martinez and his other sister is Marylin Martinez. OZZY
[2017-10-25] MEDS: Meropenem 2 GM, Admixture Fee 1 EACH in Sodium Chloride 0.9% 100 ML IVPB SCH ×3 (04:54→21:16)
--- NOTE | 2017-10-25 08:31 | PDOC.PULPN ---
Progress Note: Subj/Obj - Subjective Date: 10/25/17 Time: 08:29 Narrative: About the same - Objective Allergies/Adverse Reactions: Allergies Allergy/AdvReac Type Severity Reaction Status Date / Time No Known Drug Allergies Allergy Verified 09/20/17 08:43 MAR Reviewed: Yes Vital Signs: Vital Signs Temp 97.9 F 10/25/17 07:31 Pulse 79 10/25/17 08:00 Resp 18 10/25/17 08:00 BP 110/71 10/25/17 07:31 Pulse Ox 99 10/25/17 08:00 Intake & Output 10/24/17 10/25/17 10/25/17 18:59 06:59 18:59 Intake Total 654 474 Output Total 450 400 Balance 204 74 Weight 137 lb 2 oz 137 lb 4.8 oz Intake: Intake, IV Amount 300 Oral 0 Tube Feeding 354 474 Output: Output, Weber 450 400 Other: Voiding Method Indwelling Catheter Indwelling Catheter # Bowel Movement Diapers 1 Progress Note: Exam - Physical Exam Constitutional: NAD HEENT: PERRLA, moist MMs Neck: no nodes, no JVD Deviation from normal: trach site ok Cardiovascular: RRR Respiratory: rhonchi Gastrointestinal: soft, non-tender Musculoskeletal: no edema Progress Note: Data - Labs Result Diagrams: 10/23/17 09:23 10/22/17 03:34 Progress Note: A/P - Problems (1) Acute respiratory failure with hypoxia Current Visit: Yes Status: Acute Code(s): J96.01 - ACUTE RESPIRATORY FAILURE WITH HYPOXIA (2) Nosocomial pneumonia Current Visit: Yes Status: Acute Code(s): J18.9 - PNEUMONIA, UNSPECIFIED ORGANISM - Plan Plan: continue IV ABX placement
[2017-10-25] MEDS: Ziprasidone 20 MG CAP PER TUBE SCH ×2 (08:58→21:18)
[2017-10-25] MEDS: Pantoprazole 40 MG GRANULES PACKET PER TUBE SCH (08:59)
[2017-10-25] MEDS: Scopolamine 1.5 mg/72 hour Patch TD SCH (08:59)
[2017-10-25] MEDS: Valproate Sodium 250 mg/5 ml UD Cup PO SCH ×3 (09:00→21:17)
[2017-10-25 10:26] LABS: Vancomycin, Trough 13.3 ug/mL
[2017-10-25] MEDS: Vancomycin HCl 1 GM in Premix Bag 1 BAG IVPB SCH (11:32)
--- NOTE | 2017-10-25 16:24 | CON ---
DATE OF CONSULTATION: 10/25/2017 REASON: Bacteremia. HISTORY OF PRESENT ILLNESS: This is a 56-year-old patient admitted about a month ago with a history of COPD and a massive intraventricular hemorrhage. The patient underwent extraction of the hematoma by craniectomy by Dr. Wilhelm on 09/22/2017, and he end up with a tracheostomy and gastrostomy tube pl acement by Dr. Mcgregor on 10/04/2017, and now he has been transferred to the floor. The patient had el evation of temperature two days ago approximately and cultures were taken and now we have positive bl ood cultures and urine culture for the same organism. The patient still with a Weber catheter in [facility]. He is awake. He has difficulty in interacting with examiner, although he seems to understand sp oken word, but there is a significant amount of expressive dysphasia. He has a hard time in keeping eye contact as well, probably from the ophthalmoplegia associated with bleed. The patient has had no diarrhea. PAST MEDICAL HISTORY: Includes COPD. PAST SURGICAL HISTORY: No prior surgical history before this admission. SOCIAL HISTORY: Daily drinker, more than 5 drinks per day. Current smoker until this admission. ALLERGIES: None. FAMILY HISTORY: Noncontributory. CURRENT MEDICATIONS: Tylenol, DuoNeb, Creon, Dulcolax, meropenem, nimodipine, Zofran, Protonix, Dila ntin, MiraLax, Depakene, and vancomycin. PHYSICAL EXAMINATION: VITAL SIGNS: T-max 103 two days ago, he has been afebrile since. Pulse 81, respirations 18-20, O2 s aturation 99%. SKIN: The patient has a trach collar. No central lines. Still with the Weber catheter in place. V entriculostomy tube has been removed. No skin lesions. Of note, no lymphadenopathy. HEENT: Ocular movements disconjugate somewhat. He has difficulty with eye movements. Most of the t martha, he stay conjugate. No nystagmus noted. Conjunctivae are somewhat pale. Nasal passages patent. Oral cavity dry. Only a few remaining teeth in the upper maxilla. In the lower, there is quite a few but with a lot of desiccation and decay and gum disease. NECK: Somewhat stiff. No jugular vein distention, no thyromegaly. LUNGS: Symmetric air entry with a few crackles at the bases. HEART: S1, S2, regular rate. No abdominal distention, no ascites. Gastrostomy exit site appears no rmal. Tracheostomy exit site appears okay. : No genital swelling. He is able to move all 4 extremities, but has difficulty in following comm ands. No evidence of clonus noted in either foot. NEUROLOGIC: He is awake, establishes eye contact briefly and tries to reply to questions. He seems to understand some of the questions at least but it is hard to know the extent of his comprehension. LABORATORY DATA: The white cell count went up to 39,000 on 10/23/2017, hemoglobin 14, platelets 59,0 00. Chemistry with a sodium of 132, creatinine 0.65, bilirubin 2.0, AST 170, probably from the intr acerebral hemorrhage, ALT 87, alkaline phosphatase 128, albumin 4.1, globulin 4.6. Urinalysis with g reater than 50 wbc's on 10/23/2017. IMAGING STUDIES: Venogram negative and a chest x-ray done on the day of the febrile evidence of biba silar parenchymal opacities. ASSESSMENT: Intracerebral hemorrhage with craniectomy to evacuate the hematoma from the third ventri cielo and reestablish CSF flow. Temporary percutaneous ventriculostomy and now with urosepsis associat ed with Weber catheter. Susceptibilities pending. DISCUSSION: The patient has been started on meropenem. We will go ahead and discontinue vancomycin, adjust meropenem dose to 1 gram q.8 since I do not believe that there is evidence to suggest meningi tis. I believe the bacteremia is from the urinary tract associated with a Weber catheter. Ideally, one would like to remove the catheter if possible, this does not seem to be possible at this point in time. Duration of therapy will be at least 2 weeks and will wait for susceptibility studies. Hopef ully, we will be able to switch to the oral route administration with a quinolone. Lung findings are probably related to the bacteremia with increased pulmonary capillary permeability.
[2017-10-26] MEDS: niMODipine 30 MG CAP PO SCH ×6 (00:58→20:11)
[2017-10-26] MEDS: Meropenem 2 GM, Admixture Fee 1 EACH in Sodium Chloride 0.9% 100 ML IVPB SCH ×3 (04:49→20:09)
[2017-10-26] MEDS: Polyethylene Glycol 3350 17 GM Packet PER TUBE SCH (07:16)
--- NOTE | 2017-10-26 07:23 | PRG ---
DATE OF SERVICE: 10/26/2017 Mr. Martinez was transitioned from the ICU to the surgical floor. He is currently being followed by Suri paige as well as our Infectious Disease colleagues and now our Hospitalist Service is on board. He continues to struggle with recovering from his neurologic injury. From a neurological perspective, h e has been stable over the last few weeks. The plan now is one of disposition planning. We will con tinue with physical therapy and occupational therapy. The Neurosurgical Service will transfer care n ow over to our Hospitalist Service. I appreciate everyone's involvement.
[2017-10-26 07:50] LABS: Band 34 % (5-11); Eosinophils 2 % (0-10); Hemoglobin 11.9 g/dL (14.0-18.0); Lymphocytes 11 % (21-51); MDiff Complete? YES; Mean Corpuscular Volume 96.9 fl (80.0-94.0); Mean Platelet Volume 8.5 fL (7.4-10.4); Monocytes 9 % (0-10); Neutrophil 41 % (42-75); PLT Morphology Comment Appears Adequate; Platelet Clumps MARKED; Platelet Count 165 thou/uL (130-400); Polychromasia SLIGHT = 2-3 cells (100X) (0-2/hpf); RBC Distribution Width 12.7 % (11.5-14.5); Reactive Lymphocytes 2 % (0-10); Red Blood Cell (RBC) Count 3.82 mill/uL (4.70-6.10); White Blood Cell (WBC) Count 10.7 thou/uL (4.8-10.8)
--- NOTE | 2017-10-26 08:31 | PRG ---
DATE OF SERVICE: 10/26/2017 The patient appears to be doing a little better. PHYSICAL EXAMINATION: VITAL SIGNS: Temperature is 99.0, pulse 86, respirations 20, O2 sat 96%, blood pressure 127/85. 24 hour intake 2, output 800. HEENT: Unremarkable. NECK: No JVD. Trach in good position. LUNGS: Coarse breath sounds. CARDIAC: S1 and S2 regular. ABDOMEN: Soft. EXTREMITIES: No edema. LABORATORY DATA: White blood cell count 10, hematocrit 37, platelet count 165. ASSESSMENT: 1. Urinary tract infection with Escherichia coli with bacteremia. 2. Status post acute respiratory failure requiring tracheostomy. 3. Status post subarachnoid hemorrhage. PLAN: 1. Antibiotics per ID. 2. Placement.
[2017-10-26] MEDS: Valproate Sodium 250 mg/5 ml UD Cup PO SCH ×3 (08:51→20:11)
[2017-10-26] MEDS: Ziprasidone 20 MG CAP PER TUBE SCH ×2 (08:53→20:12)
[2017-10-26] MEDS: Pantoprazole 40 MG GRANULES PACKET PER TUBE SCH (08:53)
--- NOTE | 2017-10-26 23:14 | PDOC.PN ---
- Subjective Encounter Start Date: 10/25/17 Encounter Start Time: 13:00 Subjective: pt opens eyes when call his name - Objective Resuscitation Status: Resuscitation Status DNR:Do Not Resuscitate Vital Signs & Weight: Vital Signs (12 hours) Temp Pulse Resp BP Pulse Ox 10/26/17 20:26 98.7 F 88 22 H 112/72 99 10/26/17 19:36 96 10/26/17 19:33 96 10/26/17 15:40 98.7 F 89 20 135/85 96 10/26/17 11:53 98.5 F 80 24 H 104/71 96 Weight Admit Weight 139 lb 8.842 oz Weight 137 lb 4.8 oz Most Recent Monitor Data Heart Rate from ECG 91 NIBP 127/76 NIBP BP-Mean 82 Respiration from ECG 28 SpO2 98 I&O: 10/25/17 10/26/17 10/27/17 06:59 06:59 06:59 Intake Total 1128 2062 811 Output Total 850 800 380 Balance 278 1262 431 Result Diagrams: 10/28/17 08:18 10/29/17 08:36 Phys Exam - Physical Examination dry mucus membranes Neck: no nodes, no JVD, supple, full ROM Respiratory: wheezing present pt has a trach Cardiovascular: RRR, no significant murmur, no rub, gallop, irregular Gastrointestinal: soft, non-tender, no distention, positive bowel sounds peg tube Musculoskeletal: no edema, pulses present, edema present Neurological: non-focal, normal sensation, moves all 4 limbs Dx/Plan - Plan * 1) spontaneous intracranial bleed 2) bactremia 3) uti 4) respiratory failure s/p trach plan: will continue abx for now. pt has a trach and has a peg tube. Pt also has ponce. waiting for placement. . Review of Systems - Review of Systems Other: unable to obtain - Medications/Allergies Allergies/Adverse Reactions: Allergies Allergy/AdvReac Type Severity Reaction Status Date / Time No Known Drug Allergies Allergy Verified 09/20/17 08:43 Medications: Current Medications Acetaminophen (Tylenol Elixir) 650 mg PER TUBE Q4H PRN PRN Reason: INCREASED TEMP Last Admin: 10/23/17 17:12 Dose: 650 mg Albuterol/Ipratropium (Duoneb) 3 ml NEB [id number] TIARRA Last Admin: 10/26/17 19:33 Dose: 3 ml Lipase/Protease/Amylase ([place] [id number]) 1 cap FS PRN PRN PRN Reason: TUBE OCCLUSION PROTOCOL Bisacodyl (Dulcolax) 10 mg [place] DAILYPRN PRN PRN Reason: Constipation Meropenem 2 gm/ Miscellaneous Medication 1 each/ Sodium Chloride 100 mls @ 200 mls/hr IVPB 0400,1200,2000 [facility] Last Admin: 10/26/17 20:09 Dose: 100 mls Labetalol HCl (Normodyne) 20 mg SLOW IVP Q15MIN PRN PRN Reason: SBP >120 Last Admin: 10/06/17 00:14 Dose: 20 mg Nimodipine (Nimodipine) 60 mg PO Q4HR [facility] Last Admin: 10/26/17 20:11 Dose: Not Given Ondansetron HCl (Zofran) 4 mg IVP Q6H PRN PRN Reason: Nausea/Vomiting Pantoprazole Sodium (Protonix) 40 mg PER TUBE DAILY [facility] Last Admin: 10/26/17 08:53 Dose: 40 mg Phenytoin Sodium (Dilantin) 100 mg PER TUBE TID [facility] Last Admin: 10/26/17 20:11 Dose: 100 mg Polyethylene Glycol (Miralax) 17 gm PER TUBE Q48H [facility] Last Admin: 10/26/17 07:16 Dose: Not Given Scopolamine (Transderm Scop) 1.5 mg TD Q3D [facility] Last Admin: 10/25/17 08:59 Dose: 1.5 mg Sodium Bicarbonate (Bicarbonate, Sodium) 650 mg PER TUBE PRN PRN PRN Reason: ENTERAL TUBE OCCLUSION Sodium Chloride (Flush - Normal Saline) 10 ml IVF Q12HR [facility] Last Admin: 10/26/17 20:11 Dose: 10 ml Sodium Chloride (Flush - Normal Saline) 10 ml IVF PRN PRN PRN Reason: Saline Flush Last Admin: 10/24/17 23:50 Dose: 10 ml Valproic Acid (Depakene Liquid) 375 mg PO TID [facility] Last Admin: 10/26/17 20:11 Dose: 375 mg Ziprasidone (Geodon) 40 mg PER TUBE BID [facility] Last Admin: 10/26/17 20:12 Dose: 40 mg
--- NOTE | 2017-10-26 23:14 | PDOC.PN ---
- Subjective Encounter Start Date: 10/26/17 Encounter Start Time: 10:30 Subjective: pt opens eyes on verbal response - Objective Resuscitation Status: Resuscitation Status DNR:Do Not Resuscitate Vital Signs & Weight: Vital Signs (12 hours) Temp Pulse Resp BP Pulse Ox 10/26/17 20:26 98.7 F 88 22 H 112/72 99 10/26/17 19:36 96 10/26/17 19:33 96 10/26/17 15:40 98.7 F 89 20 135/85 96 10/26/17 11:53 98.5 F 80 24 H 104/71 96 Weight Admit Weight 139 lb 8.842 oz Weight 137 lb 4.8 oz Most Recent Monitor Data Heart Rate from ECG 91 NIBP 127/76 NIBP BP-Mean 82 Respiration from ECG 28 SpO2 98 I&O: 10/25/17 10/26/17 10/27/17 06:59 06:59 06:59 Intake Total 1128 2062 811 Output Total 850 800 380 Balance 278 1262 431 Result Diagrams: 10/28/17 08:18 10/29/17 08:36 Phys Exam - Physical Examination mucus membrance appear dry Neck: no nodes, no JVD, supple, full ROM mild rhonchi all over lungs Cardiovascular: RRR, no significant murmur, no rub, gallop, irregular Gastrointestinal: soft, non-tender, no distention, positive bowel sounds peg tube placed Musculoskeletal: no edema, pulses present, edema present only opens eyes to verbal respond Dx/Plan - Plan 1) spontanous intracranial bleed 2) bactremia 3) uti 4) respiratory failure s/p trach plan: pt is on abx for bactremia. will consult ID given pt's complex hx. pt is trached and peg waiting for placement. * . Review of Systems - Review of Systems Other: unable to obtain - Medications/Allergies Allergies/Adverse Reactions: Allergies Allergy/AdvReac Type Severity Reaction Status Date / Time No Known Drug Allergies Allergy Verified 09/20/17 08:43 Medications: Current Medications Acetaminophen (Tylenol Elixir) 650 mg PER TUBE Q4H PRN PRN Reason: INCREASED TEMP Last Admin: 10/23/17 17:12 Dose: 650 mg Albuterol/Ipratropium (Duoneb) 3 ml NEB [id number] TIARRA Last Admin: 10/26/17 19:33 Dose: 3 ml Lipase/Protease/Amylase ([place] [id number]) 1 cap FS PRN PRN PRN Reason: TUBE OCCLUSION PROTOCOL Bisacodyl (Dulcolax) 10 mg [place] DAILYPRN PRN PRN Reason: Constipation Meropenem 2 gm/ Miscellaneous Medication 1 each/ Sodium Chloride 100 mls @ 200 mls/hr IVPB 0400,1200,2000 [facility] Last Admin: 10/26/17 20:09 Dose: 100 mls Labetalol HCl (Normodyne) 20 mg SLOW IVP Q15MIN PRN PRN Reason: SBP >120 Last Admin: 10/06/17 00:14 Dose: 20 mg Nimodipine (Nimodipine) 60 mg PO Q4HR [facility] Last Admin: 10/26/17 20:11 Dose: Not Given Ondansetron HCl (Zofran) 4 mg IVP Q6H PRN PRN Reason: Nausea/Vomiting Pantoprazole Sodium (Protonix) 40 mg PER TUBE DAILY [facility] Last Admin: 10/26/17 08:53 Dose: 40 mg Phenytoin Sodium (Dilantin) 100 mg PER TUBE TID [facility] Last Admin: 10/26/17 20:11 Dose: 100 mg Polyethylene Glycol (Miralax) 17 gm PER TUBE Q48H [facility] Last Admin: 10/26/17 07:16 Dose: Not Given Scopolamine (Transderm Scop) 1.5 mg TD Q3D [facility] Last Admin: 10/25/17 08:59 Dose: 1.5 mg Sodium Bicarbonate (Bicarbonate, Sodium) 650 mg PER TUBE PRN PRN PRN Reason: ENTERAL TUBE OCCLUSION Sodium Chloride (Flush - Normal Saline) 10 ml IVF Q12HR [facility] Last Admin: 10/26/17 20:11 Dose: 10 ml Sodium Chloride (Flush - Normal Saline) 10 ml IVF PRN PRN PRN Reason: Saline Flush Last Admin: 10/24/17 23:50 Dose: 10 ml Valproic Acid (Depakene Liquid) 375 mg PO TID [facility] Last Admin: 10/26/17 20:11 Dose: 375 mg Ziprasidone (Geodon) 40 mg PER TUBE BID [facility] Last Admin: 10/26/17 20:12 Dose: 40 mg
[2017-10-27] MEDS: niMODipine 30 MG CAP PO SCH ×6 (00:44→21:55)
[2017-10-27] MEDS: Meropenem 2 GM, Admixture Fee 1 EACH in Sodium Chloride 0.9% 100 ML IVPB SCH ×3 (04:04→21:54)
[2017-10-27] MEDS: Ziprasidone 20 MG CAP PER TUBE SCH ×2 (08:33→21:58)
[2017-10-27] MEDS: Valproate Sodium 250 mg/5 ml UD Cup PO SCH ×3 (08:33→21:56)
[2017-10-27] MEDS: Pantoprazole 40 MG GRANULES PACKET PER TUBE SCH (08:33)
--- NOTE | 2017-10-27 11:04 | PRG ---
DATE OF SERVICE: 10/27/2017 SUBJECTIVE: The patient seems to be doing well. He is talkative with a speaking valve on today, but he really does not make much sense. PHYSICAL EXAMINATION: VITAL SIGNS: On exam, temperature is 98.8, pulse 92, respirations 20, O2 saturation 94%, and blood p ressure 134/80. HEENT: Unremarkable. NECK: Trach in good position. LUNGS: Clear. CARDIAC: S1 and S2 regular. ABDOMEN: Soft. EXTREMITIES: No edema. ASSESSMENT: 1. Subarachnoid hemorrhage, status post trach. 2. Escherichia coli sepsis from urinary tract infection with bacteremia. PLAN: I am going to downsize him to a size 4 trach tomorrow if we can find one. My plan would be de cannulate early next week if he is doing well. Hopefully, that will help with placement.
[2017-10-27] MEDS: Acetaminophen 650 MG/20.3 ML UDCUP PER TUBE PRN (21:57)
[2017-10-28] MEDS: niMODipine 30 MG CAP PO SCH ×6 (00:08→21:41)
[2017-10-28] MEDS ORDERED: Clopidogrel Bisulfate 75 MG TAB ONE (03:00)
[2017-10-28] MEDS: Meropenem 2 GM, Admixture Fee 1 EACH in Sodium Chloride 0.9% 100 ML IVPB SCH ×3 (03:12→20:55)
--- NOTE | 2017-10-28 06:14 | PDOC.PN ---
- Subjective Encounter Start Date: 10/27/17 Encounter Start Time: 10:30 Subjective: pt pulled out his trach - Objective Resuscitation Status: Resuscitation Status DNR:Do Not Resuscitate Vital Signs & Weight: Vital Signs (12 hours) Temp Pulse Resp BP Pulse Ox 10/28/17 04:09 97.7 F 74 16 114/75 95 10/27/17 23:41 97.5 F L 87 16 95/60 91 L 10/27/17 23:20 85 20 10/27/17 20:10 97.9 F 84 16 94 L 10/27/17 20:03 97.9 F 84 16 132/89 94 L 10/27/17 19:04 88 22 H Weight Admit Weight 139 lb 8.842 oz Weight 2.194 oz Most Recent Monitor Data Heart Rate from ECG 91 NIBP 127/76 NIBP BP-Mean 82 Respiration from ECG 28 SpO2 98 I&O: 10/26/17 10/27/17 10/28/17 06:59 06:59 06:59 Intake Total 2062 1665 1111 Output Total 800 880 575 Balance 1262 785 536 Result Diagrams: 10/28/17 08:18 10/29/17 08:36 Phys Exam - Physical Examination dry mucus membrane Neck: no nodes, no JVD, supple, full ROM mild rhonchi to bases Cardiovascular: RRR, no significant murmur, no rub, gallop, irregular Gastrointestinal: soft, positive bowel sounds peg tube Musculoskeletal: no edema, pulses present, edema present pt awake Dx/Plan - Plan 1) spontanous intracranial bleed 2) bactremia 3) uti 4) respiratory failure s/p trach plan: pt is on abx for bactremia. will consult ID given pt's complex hx. pt is trached and peg waiting for placement. pt pulled out his trach. pulmonary called stated it was ok. pt put on NC and trach site covered. * . Review of Systems - Review of Systems Other: unable to preform - Medications/Allergies Allergies/Adverse Reactions: Allergies Allergy/AdvReac Type Severity Reaction Status Date / Time No Known Drug Allergies Allergy Verified 09/20/17 08:43 Medications: Current Medications Acetaminophen (Tylenol Elixir) 650 mg PER TUBE Q4H PRN PRN Reason: INCREASED TEMP Last Admin: 10/27/17 21:57 Dose: 650 mg Albuterol/Ipratropium (Duoneb) 3 ml NEB [id number] [facility] Last Admin: 10/29/17 13:21 Dose: 3 ml Lipase/Protease/Amylase ([place] [id number]) 1 cap FS PRN PRN PRN Reason: TUBE OCCLUSION PROTOCOL Bisacodyl (Dulcolax) 10 mg [place] DAILYPRN PRN PRN Reason: Constipation Ceftriaxone Sodium 2 gm/ (Sodium Chloride) 100 mls @ 200 mls/hr IVPB 0900 [facility] Last Admin: 10/29/17 10:01 Dose: 100 mls Labetalol HCl (Normodyne) 20 mg SLOW IVP Q15MIN PRN PRN Reason: SBP >120 Last Admin: 10/06/17 00:14 Dose: 20 mg Nimodipine (Nimodipine) 60 mg PO Q4HR [facility] Last Admin: 10/29/17 15:13 Dose: 60 mg Ondansetron HCl (Zofran) 4 mg IVP Q6H PRN PRN Reason: Nausea/Vomiting Pantoprazole Sodium (Protonix) 40 mg PER TUBE DAILY [facility] Last Admin: 10/29/17 10:03 Dose: 40 mg Phenytoin Sodium (Dilantin) 100 mg PER TUBE TID [facility] Last Admin: 10/29/17 15:13 Dose: 100 mg Polyethylene Glycol (Miralax) 17 gm PER TUBE Q48H [facility] Last Admin: 10/28/17 06:38 Dose: Not Given Scopolamine (Transderm Scop) 1.5 mg TD Q3D [facility] Last Admin: 10/28/17 08:17 Dose: 1.5 mg Sodium Bicarbonate (Bicarbonate, Sodium) 650 mg PER TUBE PRN PRN PRN Reason: ENTERAL TUBE OCCLUSION Sodium Chloride (Flush - Normal Saline) 10 ml IVF Q12HR [facility] Last Admin: 10/29/17 15:14 Dose: 10 ml Sodium Chloride (Flush - Normal Saline) 10 ml IVF PRN PRN PRN Reason: Saline Flush Last Admin: 10/24/17 23:50 Dose: 10 ml Valproic Acid (Depakene Liquid) 375 mg PO TID [facility] Last Admin: 10/29/17 10:06 Dose: 375 mg Ziprasidone (Geodon) 40 mg PER TUBE BID [facility] Last Admin: 10/29/17 10:02 Dose: 40 mg
[2017-10-28] MEDS: Polyethylene Glycol 3350 17 GM Packet PER TUBE SCH (06:38)
[2017-10-28] MEDS: Pantoprazole 40 MG GRANULES PACKET PER TUBE SCH (08:17)
[2017-10-28] MEDS: Scopolamine 1.5 mg/72 hour Patch TD SCH (08:17)
[2017-10-28] MEDS: Ziprasidone 20 MG CAP PER TUBE SCH ×2 (08:17→21:42)
[2017-10-28] MEDS: Valproate Sodium 250 mg/5 ml UD Cup PO SCH ×3 (08:19→21:42)
[2017-10-28 08:57] LABS: Anion Gap 9 mmol/L (10-20); BUN (Urea Nitrogen) 25 mg/dL (8.4-25.7); Calc. Creatinine Clearance 116 mL/min (70-130); Calcium 8.9 mg/dL (7.8-10.44); Carbon Dioxide 31 mmol/L (22-29); Chloride 102 mmol/L (98-107); Estimated GFR-MDRD Greater than 90; Glucose 88 mg/dL (70-105); Potassium 3.1 mmol/L (3.5-5.1); Sodium 139 mmol/L (136-145)
[2017-10-28 09:19] LABS: Hemoglobin 12.1 g/dL (14.0-18.0); Mean Corpuscular HGB CONC 32.2 g/dL (32.0-36.0); Mean Corpuscular Hemoglobin 31.3 pg (27.0-31.0); Mean Platelet Volume 8.6 fL (7.4-10.4); Platelet Count 183 thou/uL (130-400); RBC Distribution Width 12.6 % (11.5-14.5); Red Blood Cell (RBC) Count 3.87 mill/uL (4.70-6.10)
[2017-10-28 09:29] LABS: Band 12 % (5-11); Eosinophils 2 % (0-10); Lymphocytes 18 % (21-51); MDiff Complete? YES; Monocytes 20 % (0-10); Neutrophil 48 % (42-75); PLT Morphology Comment Appears Adequate; Platelet Clumps MARKED; RBC Morphology Normal
--- NOTE | 2017-10-28 12:38 | PRG ---
DATE OF SERVICE: 10/28/2017 SUBJECTIVE: He pulled his tracheostomy out yesterday and it shows just to leave it out since that po int on the cannulating soon anywhere. He has done fine with the trachea out. PHYSICAL EXAMINATION: VITAL SIGNS: Temperature 97.8, pulse 78, respiration 16, O2 sat 92%, and blood pressure 133/89. HEENT: Unremarkable. NECK: Still a small ostomy hole. No JVD. LUNGS: Clear. CARDIAC: S1 and S2, regular. ABDOMEN: Soft. EXTREMITIES: No edema. ASSESSMENT: 1. Status post subarachnoid hemorrhage. 2. Status post tracheostomy and subsequent decannulation. 3. Escherichia coli sepsis from urinary tract infection. PLAN: 1. Discontinue meropenem tomorrow. 2. No further pulmonary recommendations available as needed.
--- NOTE | 2017-10-28 16:56 | PDOC.PN ---
- Subjective Encounter Start Date: 10/28/17 Encounter Start Time: 10:30 Subjective: pt non verbal - Objective Resuscitation Status: Resuscitation Status DNR:Do Not Resuscitate Vital Signs & Weight: Vital Signs (12 hours) Temp Pulse Resp BP Pulse Ox 10/28/17 16:36 86 136/89 10/28/17 15:44 98.0 F 83 16 121/83 94 L 10/28/17 14:03 85 18 92 L 10/28/17 12:02 97.5 F L 77 16 117/79 94 L 10/28/17 09:05 97.8 F 78 16 92 L 10/28/17 08:18 97.8 F 78 16 133/89 92 L 10/28/17 07:29 84 20 92 L Weight Admit Weight 139 lb 8.842 oz Weight 138 lb 6.4 oz Most Recent Monitor Data Heart Rate from ECG 91 NIBP 127/76 NIBP BP-Mean 82 Respiration from ECG 28 SpO2 98 I&O: 10/27/17 10/28/17 10/29/17 06:59 06:59 06:59 Intake Total 1665 1905 600 Output Total 880 1550 Balance 785 355 600 Result Diagrams: 10/28/17 08:18 10/29/17 08:36 Phys Exam - Physical Examination HEENT: PERRLA, moist MMs, sclera anicteric, TM's clear, oral pharynx no lesions , 2+ tonsils mild rhonchi Cardiovascular: RRR, no significant murmur, no rub, gallop, irregular Gastrointestinal: soft, positive bowel sounds peg tube Neurological: moves all 4 limbs opens eyes on verbal command Dx/Plan - Plan 1) spontaneous intracranial bleed 2) bactremia 3) uti 4) respiratory failure s/p trach plan: pt is on abx for bactremia. will consult ID given pt's complex hx. pt is trached and peg waiting for placement. will change abx to ceftriaxone since ecoli is resistant to levaquin. ID recommended 2 weeks of abx. potassium replaced. * . Review of Systems - Review of Systems Other: unable to participate - Medications/Allergies Allergies/Adverse Reactions: Allergies Allergy/AdvReac Type Severity Reaction Status Date / Time No Known Drug Allergies Allergy Verified 09/20/17 08:43 Medications: Current Medications Acetaminophen (Tylenol Elixir) 650 mg PER TUBE Q4H PRN PRN Reason: INCREASED TEMP Last Admin: 10/27/17 21:57 Dose: 650 mg Albuterol/Ipratropium (Duoneb) 3 ml NEB [id number] [facility] Last Admin: 10/29/17 13:21 Dose: 3 ml Lipase/Protease/Amylase ([place] [id number]) 1 cap FS PRN PRN PRN Reason: TUBE OCCLUSION PROTOCOL Bisacodyl (Dulcolax) 10 mg [place] DAILYPRN PRN PRN Reason: Constipation Ceftriaxone Sodium 2 gm/ (Sodium Chloride) 100 mls @ 200 mls/hr IVPB 0900 [facility] Last Admin: 10/29/17 10:01 Dose: 100 mls Labetalol HCl (Normodyne) 20 mg SLOW IVP Q15MIN PRN PRN Reason: SBP >120 Last Admin: 10/06/17 00:14 Dose: 20 mg Nimodipine (Nimodipine) 60 mg PO Q4HR [facility] Last Admin: 10/29/17 15:13 Dose: 60 mg Ondansetron HCl (Zofran) 4 mg IVP Q6H PRN PRN Reason: Nausea/Vomiting Pantoprazole Sodium (Protonix) 40 mg PER TUBE DAILY [facility] Last Admin: 10/29/17 10:03 Dose: 40 mg Phenytoin Sodium (Dilantin) 100 mg PER TUBE TID [facility] Last Admin: 10/29/17 15:13 Dose: 100 mg Polyethylene Glycol (Miralax) 17 gm PER TUBE Q48H [facility] Last Admin: 10/28/17 06:38 Dose: Not Given Scopolamine (Transderm Scop) 1.5 mg TD Q3D [facility] Last Admin: 10/28/17 08:17 Dose: 1.5 mg Sodium Bicarbonate (Bicarbonate, Sodium) 650 mg PER TUBE PRN PRN PRN Reason: ENTERAL TUBE OCCLUSION Sodium Chloride (Flush - Normal Saline) 10 ml IVF Q12HR [facility] Last Admin: 10/29/17 15:14 Dose: 10 ml Sodium Chloride (Flush - Normal Saline) 10 ml IVF PRN PRN PRN Reason: Saline Flush Last Admin: 10/24/17 23:50 Dose: 10 ml Valproic Acid (Depakene Liquid) 375 mg PO TID [facility] Last Admin: 10/29/17 10:06 Dose: 375 mg Ziprasidone (Geodon) 40 mg PER TUBE BID [facility] Last Admin: 10/29/17 10:02 Dose: 40 mg
[2017-10-29] MEDS: niMODipine 30 MG CAP PO SCH ×5 (01:59→17:58)
[2017-10-29] MEDS: Meropenem 2 GM, Admixture Fee 1 EACH in Sodium Chloride 0.9% 100 ML IVPB SCH (04:52)
[2017-10-29] MEDS ORDERED: cefTRIAXone Sodium 2 MG in Syringe 0 ML IVPB SCH (07:45)
[2017-10-29 09:10] LABS: Anion Gap 14 mmol/L (10-20); BUN (Urea Nitrogen) 24 mg/dL (8.4-25.7); Calc. Creatinine Clearance 110 mL/min (70-130); Calcium 8.5 mg/dL (7.8-10.44); Carbon Dioxide 24 mmol/L (22-29); Chloride 105 mmol/L (98-107); Estimated GFR-MDRD Greater than 90; Glucose 138 mg/dL (70-105); Potassium 4.8 mmol/L (3.5-5.1); Sodium 138 mmol/L (136-145)
[2017-10-29] MEDS: cefTRIAXone\\ROCEPHIN 2 GM in Sodium Chloride 0.9% 100 ML IVPB SCH (10:01)
[2017-10-29] MEDS: Ziprasidone 20 MG CAP PER TUBE SCH (10:02)
[2017-10-29] MEDS: Pantoprazole 40 MG GRANULES PACKET PER TUBE SCH (10:03)
[2017-10-29] MEDS: Valproate Sodium 250 mg/5 ml UD Cup PO SCH ×2 (10:06→17:57)
--- NOTE | 2017-10-29 15:56 | PDOC.PN ---
- Subjective Encounter Start Date: 10/29/17 Encounter Start Time: 09:00 Subjective: pt asleep, arousable - Objective Resuscitation Status: Resuscitation Status DNR:Do Not Resuscitate Vital Signs & Weight: Vital Signs (12 hours) Temp Pulse Resp BP Pulse Ox 10/29/17 13:21 80 16 83 L 10/29/17 12:12 97.7 F 88 16 102/70 93 L 10/29/17 08:16 98.1 F 89 15 135/88 93 L 10/29/17 04:19 98.0 F 72 18 132/88 92 L Weight Admit Weight 139 lb 8.842 oz Weight 139 lb 8 oz Most Recent Monitor Data Heart Rate from ECG 91 NIBP 127/76 NIBP BP-Mean 82 Respiration from ECG 28 SpO2 98 I&O: 10/28/17 10/29/17 10/30/17 06:59 06:59 06:59 Intake Total 1905 2894 Output Total 1550 1325 Balance 355 1569 Result Diagrams: 10/28/17 08:18 10/29/17 08:36 Phys Exam - Physical Examination HEENT: PERRLA, moist MMs, sclera anicteric, TM's clear, oral pharynx no lesions , 2+ tonsils Neck: no nodes, no JVD, supple, full ROM mild rhonchi to lower lobes Cardiovascular: RRR, no significant murmur, no rub, gallop, irregular Gastrointestinal: soft, positive bowel sounds peg tube Musculoskeletal: no edema, pulses present, edema present Neurological: moves all 4 limbs Dx/Plan - Plan 1) spontaneous intracranial bleed 2) bactremia 3) uti 4) respiratory failure s/p trach plan: pt is on abx for bactremia. will consult ID given pt's complex hx. pt is trached and peg waiting for placement. will change abx to ceftriaxone since ecoli is resistant to levaquin. ID recommended 2 weeks of abx. potassium replaced. Need to clarify how long pt to be on antiseizure meds. * . Review of Systems - Review of Systems Other: unable to preform - Medications/Allergies Allergies/Adverse Reactions: Allergies Allergy/AdvReac Type Severity Reaction Status Date / Time No Known Drug Allergies Allergy Verified 09/20/17 08:43 Medications: Current Medications Acetaminophen (Tylenol Elixir) 650 mg PER TUBE Q4H PRN PRN Reason: INCREASED TEMP Last Admin: 10/27/17 21:57 Dose: 650 mg Albuterol/Ipratropium (Duoneb) 3 ml NEB [id number] [facility] [place] Last Admin: 10/29/17 13:21 Dose: 3 ml Lipase/Protease/Amylase ([place] [id number]) 1 cap FS PRN PRN PRN Reason: TUBE OCCLUSION PROTOCOL Bisacodyl (Dulcolax) 10 mg [place] DAILYPRN PRN PRN Reason: Constipation Ceftriaxone Sodium 2 gm/ (Sodium Chloride) 100 mls @ 200 mls/hr IVPB 0900 [facility] Last Admin: 10/29/17 10:01 Dose: 100 mls Labetalol HCl (Normodyne) 20 mg SLOW IVP Q15MIN PRN PRN Reason: SBP >120 Last Admin: 10/06/17 00:14 Dose: 20 mg Nimodipine (Nimodipine) 60 mg PO Q4HR [facility] [place] Last Admin: 10/29/17 15:13 Dose: 60 mg Ondansetron HCl (Zofran) 4 mg IVP Q6H PRN PRN Reason: Nausea/Vomiting Pantoprazole Sodium (Protonix) 40 mg PER TUBE DAILY [facility] [place] Last Admin: 10/29/17 10:03 Dose: 40 mg Phenytoin Sodium (Dilantin) 100 mg PER TUBE TID [facility] Last Admin: 10/29/17 15:13 Dose: 100 mg Polyethylene Glycol (Miralax) 17 gm PER TUBE Q48H [facility] [place] Last Admin: 10/28/17 06:38 Dose: Not Given Scopolamine (Transderm Scop) 1.5 mg TD Q3D [facility] [place] Last Admin: 10/28/17 08:17 Dose: 1.5 mg Sodium Bicarbonate (Bicarbonate, Sodium) 650 mg PER TUBE PRN PRN PRN Reason: ENTERAL TUBE OCCLUSION Sodium Chloride (Flush - Normal Saline) 10 ml IVF Q12HR [facility] [place] Last Admin: 10/29/17 15:14 Dose: 10 ml Sodium Chloride (Flush - Normal Saline) 10 ml IVF PRN PRN PRN Reason: Saline Flush Last Admin: 10/24/17 23:50 Dose: 10 ml Valproic Acid (Depakene Liquid) 375 mg PO TID [facility] [place] Last Admin: 10/29/17 10:06 Dose: 375 mg Ziprasidone (Geodon) 40 mg PER TUBE BID [facility] [place] Last Admin: 10/29/17 10:02 Dose: 40 mg
[2017-10-30] MEDS: Ziprasidone 20 MG CAP PER TUBE SCH ×3 (00:23→21:10)
[2017-10-30] MEDS: niMODipine 30 MG CAP PO SCH ×7 (00:23→21:10)
[2017-10-30] MEDS: Valproate Sodium 250 mg/5 ml UD Cup PO SCH ×4 (00:23→21:10)
[2017-10-30 05:26] LABS: Anion Gap 8 mmol/L (10-20); BUN (Urea Nitrogen) 23 mg/dL (8.4-25.7); Calc. Creatinine Clearance 120 mL/min (70-130); Calcium 8.8 mg/dL (7.8-10.44); Carbon Dioxide 29 mmol/L (22-29); Chloride 105 mmol/L (98-107); Estimated GFR-MDRD Greater than 90; Glucose 90 mg/dL (70-105); Potassium 3.7 mmol/L (3.5-5.1); Sodium 138 mmol/L (136-145)
[2017-10-30] MEDS: Polyethylene Glycol 3350 17 GM Packet PER TUBE SCH (05:42)
[2017-10-30] MEDS: cefTRIAXone\\ROCEPHIN 2 GM in Sodium Chloride 0.9% 100 ML IVPB SCH (08:45)
[2017-10-30] MEDS: Pantoprazole 40 MG GRANULES PACKET PER TUBE SCH (08:46)
--- NOTE | 2017-10-30 12:45 | PDOC.PN ---
- Subjective Encounter Start Date: 10/30/17 Encounter Start Time: 09:00 Pt seen for followup re: physical deconditioning. Nonverbal, unable to complete ROS. - Objective Resuscitation Status: Resuscitation Status DNR:Do Not Resuscitate MAR Reviewed: Yes Vital Signs & Weight: Vital Signs (12 hours) Temp Pulse Resp BP Pulse Ox 10/30/17 11:37 98.1 F 74 24 H 106/71 98 10/30/17 07:45 98.1 F 92 24 H 94 L 10/30/17 07:41 98.1 F 92 24 H 115/73 94 L 10/30/17 07:00 88 18 98 10/30/17 04:00 98 F 82 20 104/69 91 L Weight Admit Weight 139 lb 8.842 oz Weight 139 lb 6.4 oz Most Recent Monitor Data Heart Rate from ECG 91 NIBP 127/76 NIBP BP-Mean 82 Respiration from ECG 28 SpO2 98 I&O: 10/29/17 10/30/17 10/31/17 06:59 06:59 06:59 Intake Total 2894 2410 300 Output Total 1325 1550 Balance 1569 860 300 Result Diagrams: 10/28/17 08:18 10/30/17 04:49 Phys Exam - Physical Examination Constitutional: NAD HEENT: moist MMs Trach scar Neck: supple Respiratory: clear to auscultation bilateral Cardiovascular: RRR Gastrointestinal: soft G-tube Neurological: moves all 4 limbs Psychiatric: normal affect Dx/Plan (1) Physical deconditioning Code(s): R53.81 - OTHER MALAISE Status: Acute Comment: awaiting placement (2) Bacteremia Code(s): R78.81 - BACTEREMIA Status: Acute Comment: on IV ceftriaxone (3) UTI (urinary tract infection) Status: Acute Comment: on IV ceftriaxone - Plan continue antibiotics, out of bed/ambulate * . continue ceftriaxone. Needs discharge planning. Review of Systems - Medications/Allergies Allergies/Adverse Reactions: Allergies Allergy/AdvReac Type Severity Reaction Status Date / Time No Known Drug Allergies Allergy Verified 09/20/17 08:43 Medications: Current Medications Acetaminophen (Tylenol Elixir) 650 mg PER TUBE Q4H PRN PRN Reason: INCREASED TEMP Last Admin: 10/27/17 21:57 Dose: 650 mg Albuterol/Ipratropium (Duoneb) 3 ml NEB [id number] [facility] Last Admin: 10/30/17 07:00 Dose: 3 ml Lipase/Protease/Amylase ([place] [id number]) 1 cap FS PRN PRN PRN Reason: TUBE OCCLUSION PROTOCOL Bisacodyl (Dulcolax) 10 mg [place] DAILYPRN PRN PRN Reason: Constipation Ceftriaxone Sodium 2 gm/ (Sodium Chloride) 100 mls @ 200 mls/hr IVPB 0900 [facility] Last Admin: 10/30/17 08:45 Dose: 100 mls Labetalol HCl (Normodyne) 20 mg SLOW IVP Q15MIN PRN PRN Reason: SBP >120 Last Admin: 10/06/17 00:14 Dose: 20 mg Nimodipine (Nimodipine) 60 mg PO Q4HR [facility] Last Admin: 10/30/17 12:32 Dose: Not Given Ondansetron HCl (Zofran) 4 mg IVP Q6H PRN PRN Reason: Nausea/Vomiting Pantoprazole Sodium (Protonix) 40 mg PER TUBE DAILY [facility] Last Admin: 10/30/17 08:46 Dose: 40 mg Phenytoin Sodium (Dilantin) 100 mg PER TUBE TID [facility] Last Admin: 10/30/17 09:56 Dose: 100 mg Polyethylene Glycol (Miralax) 17 gm PER TUBE Q48H [facility] Last Admin: 10/30/17 05:42 Dose: 17 gm Scopolamine (Transderm Scop) 1.5 mg TD Q3D [facility] Last Admin: 10/28/17 08:17 Dose: 1.5 mg Sodium Bicarbonate (Bicarbonate, Sodium) 650 mg PER TUBE PRN PRN PRN Reason: ENTERAL TUBE OCCLUSION Sodium Chloride (Flush - Normal Saline) 10 ml IVF Q12HR [facility] Last Admin: 10/30/17 08:46 Dose: 10 ml Sodium Chloride (Flush - Normal Saline) 10 ml IVF PRN PRN PRN Reason: Saline Flush Last Admin: 10/24/17 23:50 Dose: 10 ml Valproic Acid (Depakene Liquid) 375 mg PO TID [facility] Last Admin: 10/30/17 08:47 Dose: 375 mg Ziprasidone (Geodon) 40 mg PER TUBE BID [facility] Last Admin: 10/30/17 08:46 Dose: 40 mg
[2017-10-31] MEDS: Acetaminophen 650 MG/20.3 ML UDCUP PER TUBE PRN (02:32)
[2017-10-31] MEDS: niMODipine 30 MG CAP PO SCH ×6 (02:32→21:14)
[2017-10-31] MEDS: cefTRIAXone\\ROCEPHIN 2 GM in Sodium Chloride 0.9% 100 ML IVPB SCH (08:33)
[2017-10-31] MEDS: Ziprasidone 20 MG CAP PER TUBE SCH ×2 (08:34→21:14)
[2017-10-31] MEDS: Scopolamine 1.5 mg/72 hour Patch TD SCH (08:34)
[2017-10-31] MEDS: Pantoprazole 40 MG GRANULES PACKET PER TUBE SCH (08:34)
--- NOTE | 2017-10-31 09:40 | PRG ---
DATE OF SERVICE: 10/31/2017 He seems to be doing okay. It is hard to understand anything he is trying to say. PHYSICAL EXAMINATION: VITAL SIGNS: Temperature 97.8, pulse 87, respirations 22, O2 sat 94%, blood pressure 93/57. HEENT: Unremarkable. NECK: Still has a small tracheostomy hole. CARDIAC: S1 and S2 regular. ABDOMEN: Soft. EXTREMITIES: No edema. ASSESSMENT: 1. Status post subarachnoid hemorrhage. 2. Encephalopathy. 3. Seizures. RECOMMENDATIONS: 1. Supportive care. 2. Placement.
[2017-10-31] MEDS: Valproate Sodium 250 mg/5 ml UD Cup PO SCH ×3 (10:30→21:14)
--- NOTE | 2017-10-31 15:31 | PDOC.PN ---
- Subjective Encounter Start Date: 10/31/17 Encounter Start Time: 08:20 Pt seen for followup re; physical deconditioning. Pt not speaking, unable to obtain ROS. - Objective Resuscitation Status: Resuscitation Status DNR:Do Not Resuscitate MAR Reviewed: Yes Vital Signs & Weight: Vital Signs (12 hours) Temp Pulse Resp BP Pulse Ox 10/31/17 13:18 72 20 97 10/31/17 11:25 97.7 F 75 20 102/69 92 L 10/31/17 08:15 87 22 H 94 L 10/31/17 08:00 97.6 F 80 16 98 10/31/17 04:00 97.8 F 93 57 H 93/57 L 93 L Weight Admit Weight 139 lb 8.842 oz Weight 139 lb 15.896 oz Most Recent Monitor Data Heart Rate from ECG 91 NIBP 127/76 NIBP BP-Mean 82 Respiration from ECG 28 SpO2 98 I&O: 10/30/17 10/31/17 11/01/17 06:59 06:59 06:59 Intake Total 2410 2261 240 Output Total 1550 1200 Balance 860 1061 240 Result Diagrams: 10/28/17 08:18 10/30/17 04:49 Phys Exam - Physical Examination Constitutional: NAD HEENT: moist MMs, sclera anicteric Neck: supple tracheostomy opening Respiratory: clear to auscultation bilateral Cardiovascular: RRR, no rub Gastrointestinal: soft G-tube Neurological: moves all 4 limbs Dx/Plan (1) Physical deconditioning Code(s): R53.81 - OTHER MALAISE Status: Acute Comment: awaiting placement (2) Bacteremia Code(s): R78.81 - BACTEREMIA Status: Acute Comment: on IV ceftriaxone (3) UTI (urinary tract infection) Status: Acute Comment: on IV ceftriaxone - Plan * . Review of Systems - Medications/Allergies Allergies/Adverse Reactions: Allergies Allergy/AdvReac Type Severity Reaction Status Date / Time No Known Drug Allergies Allergy Verified 09/20/17 08:43 Medications: Current Medications Acetaminophen (Tylenol Elixir) 650 mg PER TUBE Q4H PRN PRN Reason: INCREASED TEMP Last Admin: 10/31/17 02:32 Dose: 650 mg Albuterol/Ipratropium (Duoneb) 3 ml NEB [id number] [facility] Last Admin: 10/31/17 13:18 Dose: 3 ml Lipase/Protease/Amylase ([place] [id number]) 1 cap FS PRN PRN PRN Reason: TUBE OCCLUSION PROTOCOL Bisacodyl (Dulcolax) 10 mg [place] DAILYPRN PRN PRN Reason: Constipation Ceftriaxone Sodium 2 gm/ (Sodium Chloride) 100 mls @ 200 mls/hr IVPB 0900 [facility] Last Admin: 10/31/17 08:33 Dose: 100 mls Labetalol HCl (Normodyne) 20 mg SLOW IVP Q15MIN PRN PRN Reason: SBP >120 Last Admin: 10/06/17 00:14 Dose: 20 mg Nimodipine (Nimodipine) 60 mg PO Q4HR [facility] Last Admin: 10/31/17 13:03 Dose: Not Given Ondansetron HCl (Zofran) 4 mg IVP Q6H PRN PRN Reason: Nausea/Vomiting Pantoprazole Sodium (Protonix) 40 mg PER TUBE DAILY [facility] Last Admin: 10/31/17 08:34 Dose: 40 mg Phenytoin Sodium (Dilantin) 100 mg PER TUBE TID [facility] Last Admin: 10/31/17 10:30 Dose: 100 mg Polyethylene Glycol (Miralax) 17 gm PER TUBE Q48H [facility] Last Admin: 10/30/17 05:42 Dose: 17 gm Scopolamine (Transderm Scop) 1.5 mg TD Q3D [facility] Last Admin: 10/31/17 08:34 Dose: 1.5 mg Sodium Bicarbonate (Bicarbonate, Sodium) 650 mg PER TUBE PRN PRN PRN Reason: ENTERAL TUBE OCCLUSION Sodium Chloride (Flush - Normal Saline) 10 ml IVF Q12HR [facility] Last Admin: 10/31/17 08:36 Dose: 10 ml Sodium Chloride (Flush - Normal Saline) 10 ml IVF PRN PRN PRN Reason: Saline Flush Last Admin: 10/24/17 23:50 Dose: 10 ml Valproic Acid (Depakene Liquid) 375 mg PO TID [facility] Last Admin: 10/31/17 10:30 Dose: 375 mg Ziprasidone (Geodon) 40 mg PER TUBE BID [facility] Last Admin: 10/31/17 08:34 Dose: 40 mg
[2017-10-31] MEDS ORDERED: Clopidogrel Bisulfate 75 MG TAB ONE (17:56)
[2017-11-01] MEDS: niMODipine 30 MG CAP PO SCH ×6 (01:12→22:00)
[2017-11-01] MEDS: Polyethylene Glycol 3350 17 GM Packet PER TUBE SCH (06:28)
[2017-11-01] MEDS: Pantoprazole 40 MG GRANULES PACKET PER TUBE SCH (08:56)
[2017-11-01] MEDS: cefTRIAXone\\ROCEPHIN 2 GM in Sodium Chloride 0.9% 100 ML IVPB SCH (08:56)
[2017-11-01] MEDS: Ziprasidone 20 MG CAP PER TUBE SCH ×2 (08:56→22:00)
[2017-11-01] MEDS: Valproate Sodium 250 mg/5 ml UD Cup PO SCH ×3 (08:57→22:00)
--- NOTE | 2017-11-01 16:55 | PDOC.PN ---
- Subjective Encounter Start Date: 11/01/17 Encounter Start Time: 08:20 Pt seen for followup re: physical deconditioning. Nonverbal, unable to complete ROS - Objective Resuscitation Status: Resuscitation Status DNR:Do Not Resuscitate MAR Reviewed: Yes Vital Signs & Weight: Vital Signs (12 hours) Temp Pulse Resp BP Pulse Ox 11/01/17 15:49 98.4 F 72 18 122/77 95 11/01/17 12:25 97.8 F 83 18 95/58 L 93 L 11/01/17 08:38 97.4 F L 85 18 149/81 H 91 L 11/01/17 08:00 97.4 F L 85 18 91 L Weight Admit Weight 139 lb 8.842 oz Weight 143 lb 4.807 oz Most Recent Monitor Data Heart Rate from ECG 91 NIBP 127/76 NIBP BP-Mean 82 Respiration from ECG 28 SpO2 98 I&O: 10/31/17 11/01/17 11/02/17 06:59 06:59 06:59 Intake Total 2261 2303 710 Output Total 1200 1400 Balance 1061 903 710 Result Diagrams: 11/03/17 05:17 11/03/17 05:17 Phys Exam - Physical Examination Constitutional: NAD HEENT: moist MMs Neck: supple Respiratory: clear to auscultation bilateral Cardiovascular: RRR Gastrointestinal: soft G-tube Neurological: moves all 4 limbs Psychiatric: normal affect Dx/Plan (1) Physical deconditioning Code(s): R53.81 - OTHER MALAISE Status: Acute Comment: Placement issues, discharge planning in progress (2) Bacteremia Code(s): R78.81 - BACTEREMIA Status: Acute Comment: on IV ceftriaxone for E. coli bacteremia, complete [address] antibiotics [address] Jeannie pierce, will switch to omnicef for last few days, last day antibiotics will be 11/06/17 (3) UTI (urinary tract infection) Status: Acute Qualifiers: Indwelling urinary catheter type: indwelling urethral catheter Comment: E. coli UTI - Plan * . Review of Systems - Medications/Allergies Allergies/Adverse Reactions: Allergies Allergy/AdvReac Type Severity Reaction Status Date / Time No Known Drug Allergies Allergy Verified 09/20/17 08:43 Medications: Current Medications Acetaminophen (Tylenol Elixir) 650 mg PER TUBE Q4H PRN PRN Reason: INCREASED TEMP Last Admin: 10/31/17 02:32 Dose: 650 mg Albuterol/Ipratropium (Duoneb) 3 ml NEB Q6H PRN PRN Reason: SOB Lipase/Protease/Amylase ([place] [id number]) 1 cap FS PRN PRN PRN Reason: TUBE OCCLUSION PROTOCOL Bisacodyl (Dulcolax) 10 mg [place] DAILYPRN PRN PRN Reason: Constipation Ceftriaxone Sodium 2 gm/ (Sodium Chloride) 100 mls @ 200 mls/hr IVPB 0900 [facility] Last Admin: 11/01/17 08:56 Dose: 100 mls Labetalol HCl (Normodyne) 20 mg SLOW IVP Q15MIN PRN PRN Reason: SBP >120 Last Admin: 10/06/17 00:14 Dose: 20 mg Nimodipine (Nimodipine) 60 mg PO Q4HR [facility] Last Admin: 11/01/17 11:21 Dose: Not Given Ondansetron HCl (Zofran) 4 mg IVP Q6H PRN PRN Reason: Nausea/Vomiting Pantoprazole Sodium (Protonix) 40 mg PER TUBE DAILY [facility] Last Admin: 11/01/17 08:56 Dose: 40 mg Phenytoin Sodium (Dilantin) 100 mg PER TUBE TID [facility] Last Admin: 11/01/17 16:17 Dose: 100 mg Polyethylene Glycol (Miralax) 17 gm PER TUBE Q48H [facility] Last Admin: 11/01/17 06:28 Dose: 17 gm Scopolamine (Transderm Scop) 1.5 mg TD Q3D [facility] Last Admin: 10/31/17 08:34 Dose: 1.5 mg Sodium Bicarbonate (Bicarbonate, Sodium) 650 mg PER TUBE PRN PRN PRN Reason: ENTERAL TUBE OCCLUSION Sodium Chloride (Flush - Normal Saline) 10 ml IVF Q12HR [facility] Last Admin: 11/01/17 09:08 Dose: 10 ml Sodium Chloride (Flush - Normal Saline) 10 ml IVF PRN PRN PRN Reason: Saline Flush Last Admin: 10/24/17 23:50 Dose: 10 ml Valproic Acid (Depakene Liquid) 375 mg PO TID [facility] Last Admin: 11/01/17 16:16 Dose: 375 mg Ziprasidone (Geodon) 40 mg PER TUBE BID [facility] Last Admin: 11/01/17 08:56 Dose: 40 mg
[2017-11-02] MEDS: niMODipine 30 MG CAP PO SCH ×6 (01:41→20:55)
[2017-11-02] MEDS: Ziprasidone 20 MG CAP PER TUBE SCH ×2 (08:55→20:55)
[2017-11-02] MEDS: Pantoprazole 40 MG GRANULES PACKET PER TUBE SCH (08:56)
[2017-11-02] MEDS: Valproate Sodium 250 mg/5 ml UD Cup PO SCH ×3 (08:57→20:55)
[2017-11-02] MEDS: cefTRIAXone\\ROCEPHIN 2 GM in Sodium Chloride 0.9% 100 ML IVPB SCH (09:06)
--- NOTE | 2017-11-02 14:29 | PDOC.PN ---
- Subjective Encounter Start Date: 11/02/17 Encounter Start Time: 09:00 Pt seen for followup re: physical deconditioning. Pt is nonverbal, therefore could not complete ROS. - Objective Resuscitation Status: Resuscitation Status DNR:Do Not Resuscitate MAR Reviewed: Yes Vital Signs & Weight: Vital Signs (12 hours) Temp Pulse Resp BP Pulse Ox 11/02/17 11:14 97.8 F 79 24 H 131/81 90 L 11/02/17 07:13 97.6 F 76 24 H 104/69 87 L 11/02/17 04:00 97.8 F 80 18 97/63 93 L Weight Admit Weight 139 lb 8.842 oz Weight 139 lb Most Recent Monitor Data Heart Rate from ECG 91 NIBP 127/76 NIBP BP-Mean 82 Respiration from ECG 28 SpO2 98 I&O: 11/01/17 11/02/17 11/03/17 06:59 06:59 06:59 Intake Total 2303 1250 Output Total 1400 1250 Balance 903 0 Result Diagrams: 10/28/17 08:18 10/30/17 04:49 Additional Labs: labs reviewed by me Phys Exam - Physical Examination HEENT: moist MMs Neck: supple Respiratory: clear to auscultation bilateral Cardiovascular: RRR Gastrointestinal: soft Neurological: moves all 4 limbs Psychiatric: normal affect Dx/Plan (1) Physical deconditioning Code(s): R53.81 - OTHER MALAISE Status: Acute Comment: Placement issues, discharge planning in progress (2) Bacteremia Code(s): R78.81 - BACTEREMIA Status: Acute Comment: continue IV ceftriaxone for E. coli bacteremia (3) UTI (urinary tract infection) Status: Acute Comment: continue IV ceftriaxone for E. coli UTI - Plan * . Review of Systems - Medications/Allergies Allergies/Adverse Reactions: Allergies Allergy/AdvReac Type Severity Reaction Status Date / Time No Known Drug Allergies Allergy Verified 09/20/17 08:43 Medications: Current Medications Acetaminophen (Tylenol Elixir) 650 mg PER TUBE Q4H PRN PRN Reason: INCREASED TEMP Last Admin: 10/31/17 02:32 Dose: 650 mg Albuterol/Ipratropium (Duoneb) 3 ml NEB Q6H PRN PRN Reason: SOB Lipase/Protease/Amylase ([place] [id number]) 1 cap FS PRN PRN PRN Reason: TUBE OCCLUSION PROTOCOL Bisacodyl (Dulcolax) 10 mg [place] DAILYPRN PRN PRN Reason: Constipation Ceftriaxone Sodium 2 gm/ (Sodium Chloride) 100 mls @ 200 mls/hr IVPB 0900 [facility] Last Admin: 11/02/17 09:06 Dose: 100 mls Labetalol HCl (Normodyne) 20 mg SLOW IVP Q15MIN PRN PRN Reason: SBP >120 Last Admin: 10/06/17 00:14 Dose: 20 mg Nimodipine (Nimodipine) 60 mg PO Q4HR [facility] Last Admin: 11/02/17 13:15 Dose: 60 mg Ondansetron HCl (Zofran) 4 mg IVP Q6H PRN PRN Reason: Nausea/Vomiting Pantoprazole Sodium (Protonix) 40 mg PER TUBE DAILY [facility] Last Admin: 11/02/17 08:56 Dose: 40 mg Phenytoin Sodium (Dilantin) 100 mg PER TUBE TID [facility] Last Admin: 11/02/17 08:56 Dose: 100 mg Polyethylene Glycol (Miralax) 17 gm PER TUBE Q48H [facility] Last Admin: 11/01/17 06:28 Dose: 17 gm Scopolamine (Transderm Scop) 1.5 mg TD Q3D [facility] Last Admin: 10/31/17 08:34 Dose: 1.5 mg Sodium Bicarbonate (Bicarbonate, Sodium) 650 mg PER TUBE PRN PRN PRN Reason: ENTERAL TUBE OCCLUSION Sodium Chloride (Flush - Normal Saline) 10 ml IVF Q12HR [facility] Last Admin: 11/02/17 14:24 Dose: 10 ml Sodium Chloride (Flush - Normal Saline) 10 ml IVF PRN PRN PRN Reason: Saline Flush Last Admin: 10/24/17 23:50 Dose: 10 ml Valproic Acid (Depakene Liquid) 375 mg PO TID [facility] Last Admin: 11/02/17 08:57 Dose: 375 mg Ziprasidone (Geodon) 40 mg PER TUBE BID [facility] Last Admin: 11/02/17 08:55 Dose: 40 mg
--- NOTE | 2017-11-02 14:35 | EKG ---
Test Reason : Blood Pressure : / mmHG Vent. Rate : 126 BPM Atrial Rate : 126 BPM P-R Int : 146 ms QRS Dur : 094 ms QT Int : 326 ms P-R-T Axes : 075 052 056 degrees QTc Int : 472 ms Sinus tachycardia Biatrial enlargement Nonspecific ST abnormality Abnormal ECG Confirmed by APOLINAR BRYANT, KETTY ([id number]), book editor CRISTINA NAVARRETE ([id number]) on 11/02/2017 2:34:57 PM Referred By: Confirmed By:KETTY JIANG MD
[2017-11-03] MEDS: niMODipine 30 MG CAP PO SCH ×6 (01:44→21:18)
[2017-11-03 05:43] LABS: #Basophils 0.1 thou/uL (0.0-0.2); #Eosinphils 0.3 thou/uL (0.0-0.7); #Lymphocytes 2.2 thou/uL (1.20-3.40); #Monocytes 1.2 thou/uL (0.11-0.59); #Neutrophils 5.9 thou/uL (1.40-6.50); %Basophils 0.9 % (0.0-1.0); %Eosinophils 3.2 % (0.0-10.0); %Lymphocytes 22.6 % (21.0-51.0); %Monocytes 12.6 % (0.0-10.0); %Neutrophils 60.7 % (42.0-75.0); Hemoglobin 12.4 g/dL (14.0-18.0); Mean Corpuscular HGB CONC 32.4 g/dL (32.0-36.0); Mean Corpuscular Hemoglobin 31.5 pg (27.0-31.0); Mean Corpuscular Volume 97.4 fl (80.0-94.0); Mean Platelet Volume 8.6 fL (7.4-10.4); Platelet Count 355 thou/uL (130-400); RBC Distribution Width 13.2 % (11.5-14.5); Red Blood Cell (RBC) Count 3.93 mill/uL (4.70-6.10); White Blood Cell (WBC) Count 9.8 thou/uL (4.8-10.8)
[2017-11-03 06:08] LABS: ALT (SGPT) 47 U/L (8-55); AST (SGOT) 62 U/L (5-34); Albumin 2.9 g/dL (3.5-5.0); Alkaline Phosphatase 208 U/L (40-150); Anion Gap 11 mmol/L (10-20); BUN (Urea Nitrogen) 23 mg/dL (8.4-25.7); Bilirubin, Total 0.7 mg/dL (0.2-1.2); Calc. Creatinine Clearance 0 mL/min (70-130); Calcium 9.2 mg/dL (7.8-10.44); Carbon Dioxide 26 mmol/L (22-29); Chloride 101 mmol/L (98-107); Estimated GFR-MDRD Greater than 90; Globulin 4.9 g/dL (2.4-3.5); Glucose 75 mg/dL (70-105); Potassium 4.5 mmol/L (3.5-5.1); Protein, Total 7.8 g/dL (6.0-8.3); Sodium 133 mmol/L (136-145)
[2017-11-03] MEDS: Polyethylene Glycol 3350 17 GM Packet PER TUBE SCH (07:24)
[2017-11-03] MEDS: cefTRIAXone\\ROCEPHIN 2 GM in Sodium Chloride 0.9% 100 ML IVPB SCH (08:56)
[2017-11-03] MEDS: Valproate Sodium 250 mg/5 ml UD Cup PO SCH ×3 (08:56→21:20)
[2017-11-03] MEDS: Scopolamine 1.5 mg/72 hour Patch TD SCH (08:57)
[2017-11-03] MEDS: Pantoprazole 40 MG GRANULES PACKET PER TUBE SCH (08:58)
[2017-11-03] MEDS: Ziprasidone 20 MG CAP PER TUBE SCH ×2 (08:58→21:20)
--- NOTE | 2017-11-03 14:33 | PDOC.PN ---
- Subjective Encounter Start Date: 11/03/17 Encounter Start Time: 14:31 -: non-verbal, old records requested/rev Subjective: lying sideways in bed and talking incoherently - Objective Resuscitation Status: Resuscitation Status DNR:Do Not Resuscitate MAR Reviewed: Yes Vital Signs & Weight: Vital Signs (12 hours) Temp Pulse Resp BP Pulse Ox 11/03/17 11:49 97.4 F L 73 18 104/71 92 L 11/03/17 10:36 74 24 H 92 L 11/03/17 08:00 97.4 F L 73 18 11/03/17 07:59 97.8 F 66 18 99/57 L 91 L 11/03/17 04:15 97.8 F 64 17 135/76 90 L Weight Admit Weight 139 lb 8.842 oz Weight 4.914 oz Most Recent Monitor Data Heart Rate from ECG 91 NIBP 127/76 NIBP BP-Mean 82 Respiration from ECG 28 SpO2 98 I&O: 11/02/17 11/03/17 11/04/17 06:59 06:59 06:59 Intake Total 1250 2314 540 Output Total 1250 1125 Balance 0 1189 540 Result Diagrams: 11/03/17 05:17 11/03/17 05:17 Additional Labs: Microbiology 10/23/17 10:53 Venous blood - Left Hand Blood Culture - Final NO GROWTH IN 5 DAYS 10/23/17 10:47 Venous blood - Right Hand Blood Culture - Final Escherichia coli 10/23/17 10:34 Urine ponce catheter Urine Culture - Final Escherichia coli Laboratory Tests 09/19/17 11/03/17 23:02 05:17 AST 170 H 62 H Alkaline Phosphatase 128 208 H LABS REVIEWED Phys Exam - Physical Examination Constitutional: NAD incoherent,does not follow any commands,awake but not oriented HEENT: sclera anicteric dry mucosa and lips,poor hygeine Neck: no JVD Respiratory: wheezing present Cardiovascular: RRR, no significant murmur Gastrointestinal: soft, no distention Musculoskeletal: no edema, pulses present Neurological: non-focal, normal sensation, moves all 4 limbs Dx/Plan (1) UTI (urinary tract infection) Status: Acute Comment: continue IV ceftriaxone for E. coli UTI (2) Bacteremia Code(s): R78.81 - BACTEREMIA Status: Acute Comment: continue IV ceftriaxone for E. coli bacteremia (3) ICH (intracerebral hemorrhage) Code(s): I61.9 - NONTRAUMATIC INTRACEREBRAL HEMORRHAGE, UNSPECIFIED Status: Acute (4) COPD (chronic obstructive pulmonary disease) Status: Chronic (5) Physical deconditioning Code(s): R53.81 - OTHER MALAISE Status: Acute Comment: Placement issues, discharge planning in progress (6) Acute respiratory failure with hypoxia Code(s): J96.01 - ACUTE RESPIRATORY FAILURE WITH HYPOXIA Status: Resolved Comment: s/p Trach and PEG - Plan ponce catheter, continue antibiotics, PT/OT, respiratory therapy cont rocephin for now. -: cont nebs prn. -: HD stable. -: ICH stable but with encephaopathy ,w/o coma.pt not orineted at all -: BP controlled on Nimodipine. * .cont depakone for seizure prophyalxis Review of Systems - Review of Systems Other: can not be obtained due to encephalopathy - Medications/Allergies Allergies/Adverse Reactions: Allergies Allergy/AdvReac Type Severity Reaction Status Date / Time No Known Drug Allergies Allergy Verified 09/20/17 08:43 Medications: Current Medications Acetaminophen (Tylenol Elixir) 650 mg PER TUBE Q4H PRN PRN Reason: INCREASED TEMP Last Admin: 10/31/17 02:32 Dose: 650 mg Albuterol/Ipratropium (Duoneb) 3 ml NEB Q6H PRN PRN Reason: SOB Last Admin: 11/03/17 10:36 Dose: 3 ml Lipase/Protease/Amylase ([place] [id number]) 1 cap FS PRN PRN PRN Reason: TUBE OCCLUSION PROTOCOL Bisacodyl (Dulcolax) 10 mg [place] DAILYPRN PRN PRN Reason: Constipation Ceftriaxone Sodium 2 gm/ (Sodium Chloride) 100 mls @ 200 mls/hr IVPB 0900 [facility] Last Admin: 11/03/17 08:56 Dose: 100 mls Labetalol HCl (Normodyne) 20 mg SLOW IVP Q15MIN PRN PRN Reason: SBP >120 Last Admin: 10/06/17 00:14 Dose: 20 mg Nimodipine (Nimodipine) 60 mg PO Q4HR [facility] Last Admin: 11/03/17 12:38 Dose: Not Given Ondansetron HCl (Zofran) 4 mg IVP Q6H PRN PRN Reason: Nausea/Vomiting Pantoprazole Sodium (Protonix) 40 mg PER TUBE DAILY [facility] Last Admin: 11/03/17 08:58 Dose: 40 mg Phenytoin Sodium (Dilantin) 100 mg PER TUBE TID [facility] Last Admin: 11/03/17 08:57 Dose: 100 mg Polyethylene Glycol (Miralax) 17 gm PER TUBE Q48H [facility] Last Admin: 11/03/17 07:24 Dose: Not Given Scopolamine (Transderm Scop) 1.5 mg TD Q3D [facility] Last Admin: 11/03/17 08:57 Dose: 1.5 mg Sodium Bicarbonate (Bicarbonate, Sodium) 650 mg PER TUBE PRN PRN PRN Reason: ENTERAL TUBE OCCLUSION Sodium Chloride (Flush - Normal Saline) 10 ml IVF Q12HR [facility] Last Admin: 11/03/17 08:58 Dose: 10 ml Sodium Chloride (Flush - Normal Saline) 10 ml IVF PRN PRN PRN Reason: Saline Flush Last Admin: 10/24/17 23:50 Dose: 10 ml Valproic Acid (Depakene Liquid) 375 mg PO TID [facility] Last Admin: 11/03/17 08:56 Dose: 375 mg Ziprasidone (Geodon) 40 mg PER TUBE BID [facility] Last Admin: 11/03/17 08:58 Dose: 40 mg
[2017-11-03 15:14] VITALS: BMI 20.5
[2017-11-04] MEDS: niMODipine 30 MG CAP PO SCH ×4 (01:02→12:41)
--- NOTE | 2017-11-04 08:16 | PDOC.PN ---
- Subjective Encounter Start Date: 11/04/17 Encounter Start Time: 10:15 -: non-verbal Subjective: No changes overnight. - Objective Resuscitation Status: Resuscitation Status DNR:Do Not Resuscitate MAR Reviewed: Yes Vital Signs & Weight: Vital Signs (12 hours) Temp Pulse Resp BP Pulse Ox 11/04/17 04:45 98.0 F 60 20 101/65 92 L 11/04/17 00:34 73 22 H 93 L 11/04/17 00:15 90 L 11/04/17 00:05 97.6 F 73 24 H 131/75 88 L 11/03/17 20:40 97.9 F 76 22 H 90 L 11/03/17 20:30 97.9 F 76 22 H 136/79 90 L Weight Admit Weight 139 lb 8.842 oz Weight 4.963 oz Most Recent Monitor Data Heart Rate from ECG 91 NIBP 127/76 NIBP BP-Mean 82 Respiration from ECG 28 SpO2 98 I&O: 11/03/17 11/04/17 11/05/17 06:59 06:59 06:59 Intake Total 2314 2394 Output Total 1125 1050 Balance 1189 1344 Result Diagrams: 11/03/17 05:17 11/03/17 05:17 Phys Exam - Physical Examination Constitutional: NAD HEENT: moist MMs poor oral hygiene Respiratory: no wheezing, no rales, no rhonchi Cardiovascular: RRR, no significant murmur Gastrointestinal: soft, non-tender, positive bowel sounds Musculoskeletal: no edema Neurological: non-focal Deviation from normal: moans only, no words, not following commands Dx/Plan (1) Bacteremia Code(s): R78.81 - BACTEREMIA Status: Acute Comment: on IV ceftriaxone for E. coli bacteremia, complete [address] Jeannie pierce, will switch to omnicef for last few days, last day antibiotics will be 11/06/17 (2) UTI (urinary tract infection) Status: Acute Qualifiers: Indwelling urinary catheter type: indwelling urethral catheter Comment: E. coli UTI (3) ICH (intracerebral hemorrhage) Code(s): I61.9 - NONTRAUMATIC INTRACEREBRAL HEMORRHAGE, UNSPECIFIED Status: Acute (4) COPD (chronic obstructive pulmonary disease) Status: Chronic (5) Physical deconditioning Code(s): R53.81 - OTHER MALAISE Status: Acute Comment: Placement issues, discharge planning in progress - Plan cont current plan of care, continue antibiotics, PT/OT, psychiatric social worker supervisor, DVT proph w/SCDs Was accepted in [place] so discharge filled out, then told denied. -: Will d/c whenever placement arranged. * . - Discharge Day Encounter end time: 10:45
[2017-11-04 08:19] VITALS: TEMP 97.8
[2017-11-04] MEDS: Ziprasidone 20 MG CAP PER TUBE SCH (08:37)
[2017-11-04] MEDS: Pantoprazole 40 MG GRANULES PACKET PER TUBE SCH (08:37)
[2017-11-04] MEDS: Valproate Sodium 250 mg/5 ml UD Cup PO SCH (08:38)
[2017-11-04] MEDS: cefTRIAXone\\ROCEPHIN 2 GM in Sodium Chloride 0.9% 100 ML IVPB SCH (08:38)
[2017-11-04 12:38] VITALS: BP 106/65
[2017-11-04] MEDS ORDERED: Cefdinir 300 MG CAP PER TUBE SCH (21:00)
--- NOTE | 2017-11-05 21:31 | DIS ---
PRIMARY CARE PHYSICIAN: Benito abraham. ORIGINAL ADMITTING TEAM: Neurosurgery, Dr. Moser. REASON FOR ADMISSION: Acute subarachnoid hemorrhage with massive intraventricular hemorrhage. DIAGNOSES AT DISCHARGE: 1. Acute subarachnoid hemorrhage with massive intraventricular hemorrhage. 2. Encephalopathy secondary to #1. 3. Urinary tract infection secondary to indwelling Weber catheter. 4. Bacteremia secondary to urinary tract infection. 5. Urinary retention secondary to encephalopathy. 6. Physical deconditioning. 7. Chronic obstructive pulmonary disease. PROCEDURES: See surgical notes for all the procedures done in the hospital. The patient did have an extensive hospital stay. CONSULTATIONS: 1. Neurosurgery, Dr. Moser. 2. Pulmonology, Dr. Paez. 3. Neurology, Dr. Ferraro. 4. General surgery, Dr. Mcgregor. 5. Hospitalist service at which point we did assume care of the patient. SUMMARY OF HOSPITAL COURSE: See progress notes from Neurosurgery and consultants as the patient has had a very extensive hospital stay for complete details. The patient was initially admitted on 09/19/2017 for intracranial hemorrhage. We were consulted on the next month 10/24/2017 to assume medical care. Briefly, the patient presented to the emergency room with acute intracerebral hemorrhage. He was intubated, had multiple surgical drains placed for drainage of clot and CSF, had very slow improvement and eventually had to have a trach and PEG placed. He has had a persistent intermittent agitation, is not able to walk, is intermittently able to follow basic commands. Originally, they tried to put in a setting of rehabilitation, but due to no funding, it was unable to get him placed. During his hospitalization , he did have to have a Weber placed for urinary retention due to his altered mental status. Then, about a month in his hospital stay, he did spike a fever and elevated white blood cell count and found to have a new urinary tract infection. The patient did grow back E. coli and was able to be transitioned over to Omnicef twice a day. Infectious disease, Dr. Dennis was consulted and he recommended 2 weeks of antibiotics for the UTI. The patient has now been accepted to [facility] and is being discharged. DISCHARGE MANAGEMENT: Discharged to [facility]. ACTIVITY: As tolerated. DIET: Tube feeding diet. THERAPY: Occupational, physical, and speech therapy. EQUIPMENT SUPPLIES: PEG tube care. FOLLOWUP: With Dr. Dennis and Dr. White as an outpatient. DISCHARGE MEDICATIONS: 1. Omnicef 300 mg twice a day for 3 more days for the full 2 weeks of antibiotics. 2. Geodon 40 mg per tube twice a day. 3. Divalproex sodium 375 mg 3 times a day. 4. Bicarbonate sodium 650 mg per tube p.r.n. 5. Transdermal scopolamine patch 1.5 mg transdermal q.3 days. 6. MiraLax 17 grams per tube q.48 hours. 7. Dilantin suspension 100 mg per tube 3 times a day. 8. Protonix 40 mg per tube daily. 9. Pancrelipase DR 1 cap per tube p.r.n. 10. Nimotop 60 mg p.o. q.4 hours. 11. DuoNeb q.6 hours as needed. 12. Dulcolax 10 mg per rectum daily as needed. 13. Tylenol elixir 650 mg per tube q.4 hours as needed for fever or pain. I spent 35 minutes arranging the details of this discharge. OZZY
--- NOTE | 2017-11-08 13:15 | PQF ---
BETI AL MD CLINICAL DOCUMENTATION CLARIFICATION FORM: POST DISCHARGE Addendum to original discharge summary date: ____ Late entry note date: __ Documentation of nosocromial Pnemonia has been included in the progress note. Further clarification is need to appropriately code the Hospital aquired condition, as the patient was on ventilator prior to diagnosis of HAC-pneumonia. Please exercise your independent, professional judgment in responding to the clarification form. Clinical indicators are provided on the bottom of this form for your review Please check appropriate box(s): ( X ) ventilator associated Pneumonia- [ ] Aspiration Pneumonia [ ] Aspiration Bronchitis [ ] Empirically treating Gram Negative Pneumonia [ ] Empirically treating Anaerobic Pneumonia [ ] Pneumonia secondary to (specify organism / underlying disease) [ ] Simple Pneumonia (community acquired - nosocomial) [ ] Bronchopneumonia [ ] Pneumonia of unknown etiology [ ] Other diagnosis [ ] Unable to determine In addition, please specify: Present on Admission (POA): [ ] Yes [ X ] No [ ] Unable to determine For continuity of documentation, please document condition throughout progress notes and discharge summary. Thank You. 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 All Rights Reserved [email or web address] [phone] OZZY
== END 2017-11-04 14:10 | DRG 3 ==
LOC: ERS 22:53 → EDBD 22:53 → CCU 09-20 02:15 → IMCU/EMU 10-11 15:34 → SURG B 10-23 14:21 → SURG A 10-27 18:13
PROVIDERS: ADMIT Neurological Surgery; ATTEND Emergency Medicine
PROC: 009630Z Drainage of Cerebral Ventricle with Drainage Device, Percutaneous Approach (ICD-10-PCS; principal; 2017-09-20)
PROC: 5A1955Z Respiratory Ventilation, Greater than 96 Consecutive Hours (ICD-10-PCS; 2017-09-20)
PROC: 3E033XZ Introduction of Vasopressor into Peripheral Vein, Percutaneous Approach (ICD-10-PCS; 2017-09-20)
PROC: 0BH17EZ Insertion of Endotracheal Airway into Trachea, Via Natural or Artificial Opening (ICD-10-PCS; 2017-09-20)
PROC: 00C60ZZ Extirpation of Matter from Cerebral Ventricle, Open Approach (ICD-10-PCS; 2017-09-22)
PROC: 009600Z Drainage of Cerebral Ventricle with Drainage Device, Open Approach (ICD-10-PCS; 2017-09-22)
PROC: 00900ZZ Drainage of Brain, Open Approach (ICD-10-PCS; 2017-09-22)
PROC: 0B113F4 Bypass Trachea to Cutaneous with Tracheostomy Device, Percutaneous Approach (ICD-10-PCS; 2017-10-04)
PROC: 0DH63UZ Insertion of Feeding Device into Stomach, Percutaneous Approach (ICD-10-PCS; 2017-10-04)
PROC: 3E0G76Z Introduction of Nutritional Substance into Upper GI, Via Natural or Artificial Opening (ICD-10-PCS; 2017-10-04)
PROC: 0W9G3ZZ Drainage of Peritoneal Cavity, Percutaneous Approach (ICD-10-PCS; 2017-10-09)
DX: I61.5 Nontraumatic intracerebral hemorrhage, intraventricular (principal); T83.511A Infection and inflammatory reaction due to indwelling urethral catheter, initial encounter; N39.0 Urinary tract infection, site not specified; G93.49 Other encephalopathy; J69.0 Pneumonitis due to inhalation of food and vomit; J96.01 Acute respiratory failure with hypoxia; A41.51 Sepsis due to Escherichia coli [E. coli]; E87.1 Hypo-osmolality and hyponatremia; E87.2 Acidosis; R18.8 Other ascites; T85.890A Other specified complication of nervous system prosthetic devices, implants and grafts, initial encounter; J95.09 Other tracheostomy complication; J95.851 Ventilator associated pneumonia; Z66 Do not resuscitate; R47.02 Dysphasia; H49.9 Unspecified paralytic strabismus; R40.2142 Coma scale, eyes open, spontaneous, at arrival to emergency department; R40.2212 Coma scale, best verbal response, none, at arrival to emergency department; R40.2312 Coma scale, best motor response, none, at arrival to emergency department; I60.8 Other nontraumatic subarachnoid hemorrhage; R56.9 Unspecified convulsions; I10 Essential (primary) hypertension; J44.9 Chronic obstructive pulmonary disease, unspecified; F17.210 Nicotine dependence, cigarettes, uncomplicated; I95.9 Hypotension, unspecified; G91.4 Hydrocephalus in diseases classified elsewhere; Y83.1 Surgical operation with implant of artificial internal device as the cause of abnormal reaction of the patient, or of later complication, without mention of misadventure at the time of the procedure; Y92.239 Unspecified place in hospital as the place of occurrence of the external cause; E87.8 Other disorders of electrolyte and fluid balance, not elsewhere classified; E87.70 Fluid overload, unspecified; Y95 Nosocomial condition; B96.20 Unspecified Escherichia coli [E. coli] as the cause of diseases classified elsewhere; R33.8 Other retention of urine; Y84.6 Urinary catheterization as the cause of abnormal reaction of the patient, or of later complication, without mention of misadventure at the time of the procedure; F10.10 Alcohol abuse, uncomplicated; Z78.1 Physical restraint status
CPT/HCPCS: 31500; 36415; 36416; 51702; 70450; 70496; 71045; 72125; 74177; 80048; 80053; 80185; 80202; 80306; 80307; 81003; 81015; 82042; 82330; 82553; 82803; 82805; 82945; 83605; 83630; 84146; 84484; 85007; 85025; 85027; 86850; 86900; 86901; 87040; 87070; 87077; 87086; 87149; 87186; 87205; 87324; 87449; 93005; 93970; 94002; 94003; 94640; 94760; 95816; 95819; 96361; 96365; 96367; 96375; 96376; 99292; A4216; C1713; C9113; G8978-GP-CN; G8979-GP-CK; G8979-GP-CL; G8981-GP-CN; G8982-GP-CK; G8996-GN-CM; G8996-GN-CN; G8997-GN-CK; G8997-GN-CL; G8997-GN-CM; J0131; J0690; J0696; J1265; J1940; J1956; J2001; J2060; J2185; J2250; J2270; J2405; J2543; J2704; J3010; J3370; J3480; J3490; J7050; J7620; Q2009